=== PATIENT | male | born 1935 | race Hispanic/Latino ===

== ENCOUNTER 2017-01-19 09:00 | Emergency (ER) | payer MEDICAID, MEDICARE ==
[2017-01-19 09:01] VITALS: PULSE 79
[2017-01-19 09:05] VITALS: BMI 33.7
[2017-01-19 09:24] VITALS: TEMP 98.2
--- NOTE | 2017-01-19 09:32 | ED PDOC ---
Arrival/HPI - General Chief Complaint: Trauma Time Seen by Provider: 01/19/17 09:12 Historian: Patient - History of Present Illness Narrative History of Present Illness (Text): 01/19/17 09:18 Donald Chi is a 81 year old male, whose past medical history includes diabetes, COPD, GERD, A-fib on Coumadin, CHF and BPH, presents to the emergency department complaining of left side pain after a mechanical fall. Patient reports that while walking with his walker, he placed the breaks on it when he stopped, and suddenly the walker rolled on to the grass causing him to lose his stability and he fell on his left side. He states the pain begins on his left shoulder and radiates down to his elbow. The pain becomes worse when moving the arm. Patient denies chest pain, shortness of breath, dizziness, lightheadedness , or palpitation. Patient did not hit their head. Patient denies any loss of consciousness, headache, fever, chills, cough, nausea, vomiting, diarrhea, visual changes, neck pain, or other complaints. PMD: Dr. Faisal Brewer Time/Duration: Prior to Arrival Symptom Onset: Sudden Symptom Course: Unchanged Activities at Onset: Light Modifying Factors (Text): left pain is worse with arm movement Context: Walking, Street Associated Symptoms (Text): None Past Medical History - Provider Review Nursing Documentation Reviewed: Yes - Infectious Disease Hx of Infectious Diseases: None - Tetanus Immunization Tetanus Immunization: Unknown - Cardiac Hx Cardiac Disorders: Yes (Afib (on Coumadin)) Hx Congestive Heart Failure: Yes Hx Hypertension: Yes - Pulmonary Hx Chronic Obstructive Pulmonary Disease (COPD): Yes - Neurological Hx Neurological Disorder: No - HEENT Hx HEENT Disorder: Yes Hx Cataracts: Yes Hx Glaucoma: Yes - Renal Hx Renal Disorder: No - Endocrine/Metabolic Hx Diabetes Mellitus Type 1: Yes - Hematological/Oncological Hx Blood Disorders: No - Integumentary Hx Dermatological Disorder: No - Musculoskeletal/Rheumatological Hx Musculoskeletal Disorders: Yes Hx Falls: Yes Other/Comment: walks with walker - Gastrointestinal Hx Gastrointestinal Disorders: Yes Hx Gastroesophageal Reflux: Yes Hx Gastrointestinal Ulcer: Yes - Genitourinary/Gynecological Hx Reproductive Disorders: No - Psychiatric Hx Psychophysiologic Disorder: No Hx Substance Use: No - Past Surgical History Past Surgical History: No Previous - Surgical History Hx Joint Replacement: Yes (left total knee replacemnt 07/2016) - Anesthesia Hx Anesthesia: Yes Hx Anesthesia Reactions: No Hx Malignant Hyperthermia: No - Suicidal Assessment Feels Threatened In Home Enviroment: No Family/Social History - Physician Review Nursing Documentation Reviewed: Yes Family/Social History: Unknown Family HX Smoking Status: Former Smoker Hx Alcohol Use: No Hx Substance Use: No Hx Substance Use Treatment: No Allergies/Home Meds Allergies/Adverse Reactions: Allergies No Known Allergies Allergy (Verified 01/19/17 09:05) Home Medications: Home Meds Medication Instructions Recorded Confirmed Alfuzosin HCl [Uroxatral] 10 mg PO DAILY 09/05/16 01/19/17 Darifenacin Hydrobromide 15 mg PO DAILY 09/05/16 01/19/17 [Darifenacin ER] Dutasteride [Dutasteride] 0.5 mg PO DAILY 09/05/16 01/19/17 Insulin Lispro Mix 75/25 [HumaLOG 25 unit SC ACHS 09/05/16 01/19/17 Mix 75/25] Metoprolol Tartrate [Lopressor] 100 mg PO DAILY 09/05/16 01/19/17 Oxybutynin Chloride [Oxybutynin 15 mg PO DAILY 09/05/16 01/19/17 Chloride ER] Pantoprazole [Protonix EC Tab] 40 mg PO DAILY 09/05/16 01/19/17 Pregabalin [Lyrica] 75 mg PO DAILY 09/05/16 01/19/17 Warfarin [Coumadin] 5 mg PO DAILY 09/05/16 01/19/17 traMADol [Ultram] 50 mg pe PO DAILY 09/05/16 01/19/17 Review of Systems - Review of Systems Constitutional: absent: Fevers ENT: Normal Respiratory: absent: SOB Cardiovascular: absent: Chest Pain Gastrointestinal: absent: Abdominal Pain, Diarrhea, Nausea, Vomiting Musculoskeletal: Other (left shoulder pain radiates down to elbow) Skin: Normal Neurological: absent: Headache, Dizziness Endocrine: Normal Hemo/Lymphatic: Normal Psychiatric: Normal Physical Exam Vital Signs Reviewed: Yes Vital Signs Temp Pulse Resp BP Pulse Ox 01/19/17 11:00 88 18 114/67 98 01/19/17 09:13 98.2 F 91 H 19 115/59 L 97 Temperature: Afebrile Blood Pressure: Normal Pulse: Regular Respiratory Rate: Normal Appearance: Positive for: Well-Appearing, Non-Toxic, Comfortable Pain Distress: None Mental Status: Positive for: Alert and Oriented X 3 - Systems Exam Head: Present: Atraumatic, Normocephalic Pupils: Present: PERRL Extroacular Muscles: Present: EOMI Conjunctiva: Present: Normal Mouth: Present: Moist Mucous Membranes Neck: Present: Normal Range of Motion Respiratory/Chest: Present: Clear to Auscultation, Good Air Exchange. No: Respiratory Distress, Accessory Muscle Use Cardiovascular: Present: Regular Rate and Rhythm, Normal S1, S2. No: Murmurs Abdomen: Present: Normal Bowel Sounds. No: Tenderness, Distention, Peritoneal Signs Upper Extremity: Present: Tenderness (left anterior and lateral motion), Other ( limited range of motion on left arm). No: Cyanosis, Edema Lower Extremity: Present: Normal Inspection. No: Edema Neurological: Present: GCS=15, CN II-XII Intact, Speech Normal Skin: Present: Warm, Dry, Normal Color. No: Rashes Psychiatric: Present: Alert, Oriented x 3, Normal Insight, Normal Concentration Medical Decision Making ED Course and Treatment: 01/19/17 09:18 Impression: 81 year old male with left shoulder pain that radiates to elbow after mechanical fall. Differential Diagnosis included but are not limited to: Shoulder fx vs Contusion vs Strain Plan: -- Left shoulder X - ray -- Left elbow X - ray -- Tylenol -- Reassess and disposition Progress Notes: 01/19/2017 10:12 Elbow X - ray: Creator : Mia Lopez V. FINDINGS: BONES: No fracture. JOINTS: Ulna humeral mild osteoarthritis. SOFT TISSUES: Normal. JOINT EFFUSION: None. OTHER FINDINGS: None IMPRESSION: No fracture or dislocation appear. Ulna humeral mild osteoarthritis. 01/19/17 10:15 Shoulder X - ray: Creator : Mia Lopez V. FINDINGS: BONES: No fracture. JOINTS: Glenohumeral and acromioclavicular joints subcortical cystic arthrosis SOFT TISSUES: Normal. OTHER FINDINGS: None. IMPRESSION: No fracture or dislocation. Arthrosis. Patient's xray negative. Patient states he feels better and has strength to walk with his walker. He does not want PT as offered and states he can get around himself or with assistance at home. He said he recently had blood work done with his doctor and they told him everything was fine. He will f/u with his PMD and he also has an appointment with Dr. Brewer in 1-2days. - RAD Interpretation Radiology Orders: 01/19/17 09:22 ELBOW LEFT 3 VIEWS ROUTINE [RAD] Stat SHOULDER LEFT [RAD] Stat - Medication Orders Current Medication Orders: Discontinued Medications Acetaminophen (Tylenol 325mg Tab) 975 mg PO STAT STA Stop: 01/19/17 09:23 Last Admin: 01/19/17 10:07 Dose: 975 mg - Scribe Statement The provider has reviewed the documentation as recorded by the Scribe 01/19/2017 Carlee Byrne Provider Scribe Attestation: All medical record entries made by the Scribe were at my direction and personally dictated by me. I have reviewed the chart and agree that the record accurately reflects my personal performance of the history, physical exam, medical decision making, and the department course for this patient. I have also personally directed, reviewed, and agree with the discharge instructions and disposition. Disposition/Present on Arrival - Present on Arrival Any Indicators Present on Arrival: No History of DVT/PE: No History of Uncontrolled Diabetes: No Urinary Catheter: No History of Decub. Ulcer: No History Surgical Site Infection Following: None - Disposition Have Diagnosis and Disposition been Completed?: Yes Diagnosis: Shoulder contusion Disposition: HOME/ ROUTINE Disposition Time: 11:01 Patient Plan: Discharge Condition: IMPROVED Discharge Instructions (ExitCare): Rotator Cuff Injury (ED) Additional Instructions: Mr Chi, thank you for letting us take care of you today. Your provider was Dr. Vogel. You were treated for Shoulder Contusion. The emergency medical care you received today was directed at your acute symptoms. If you were prescribed any medication, please fill it and take as directed. It may take several days for your symptoms to resolve. Return to the Emergency Department if your symptoms worsen, do not improve, or if you have any other problems. Please contact your doctor or call one of the physicians/clinics you have been referred to that are listed on the Patient Visit Information form that is included in your discharge packet. Bring any paperwork you were given at discharge with you along with any medications you are taking to your follow up visit. Our treatment cannot replace ongoing medical care by a primary care provider (PCP) outside of the emergency department. Thank you for allowing the [facility] team to be part of your care today. If you had an X-Ray or CT scan: A Radiologist will review the ED reading if any change in treatment is needed we will contact you. If you had a blood, urine, or wound culture: It will take several days for the results, if any change in treatment is needed we will contact you. If you had an STI test: It will take 48 hours for the results. Please call after 1 week if you have not heard back. Referrals: Kit Mahmood MD [Staff Provider] - Follow up with primary Faisal Brewer MD [Primary Care Provider] - Follow up with primary Forms: [employer] (B[place]raini)
--- NOTE | 2017-01-19 10:09 | RAD ---
PROCEDURE: Radiographs of the left elbow. HISTORY: fall r/o fx COMPARISON: No prior. FINDINGS: BONES: No fracture. JOINTS: Ulna humeral mild osteoarthritis. SOFT TISSUES: Normal. JOINT EFFUSION: None. OTHER FINDINGS: None IMPRESSION: No fracture or dislocation appear Ulna humeral mild osteoarthritis.
--- NOTE | 2017-01-19 10:10 | RAD ---
PROCEDURE: Radiographs of the Left Shoulder HISTORY: fall r/o fx COMPARISON: No prior. FINDINGS: BONES: No fracture. JOINTS: Glenohumeral and acromioclavicular joints subcortical cystic arthrosis SOFT TISSUES: Normal. OTHER FINDINGS: None. IMPRESSION: No fracture or dislocation. Arthrosis
[2017-01-19 11:01] VITALS: BP 114/67; PULSE 88; RESP 18; O2SAT 98
== END 2017-01-19 11:03 | disposition home or self-care (01) ==
LOC: ED 09:00
DX: S40.012A Contusion of left shoulder, initial encounter (principal); W01.0XXA Fall on same level from slipping, tripping and stumbling without subsequent striking against object, initial encounter; Y93.01 Activity, walking, marching and hiking; Y92.89 Other specified places as the place of occurrence of the external cause

== ENCOUNTER 2017-03-30 07:56 | Emergency (ER) | payer OTHER, MEDICAID ==
[2017-03-30 07:56] VITALS: PULSE 79; BMI 33.7
[2017-03-30 08:07] VITALS: TEMP 98.7
--- NOTE | 2017-03-30 08:50 | ED PDOC ---
Arrival/HPI - General Historian: Patient <Melina Suggs - Last Filed: 03/30/17 11:14> <JaspreetSteve L - Last Filed: 04/01/17 07:25> - General Chief Complaint: Dizziness/Lightheaded Time Seen by Provider: 03/30/17 08:24 - History of Present Illness Narrative History of Present Illness (Text): 82 year old male with a history of Atrial fibrillation (on Coumadin), DM II, Hypertension, and CKD who presents with dizziness, weakness, and light- headedness upon waking up this morning. He denies any unilateral weakness, numbness, changes in speech, visual disturbances, or headache. He admits to polyuria, denies dysuria and suprapubic fullness. Patient reports recently uncontrolled blood sugar levels and and recent R[place] catheter removal. 03/30/17 08:38 03/30/17 08:51 (Melina Suggs) Past Medical History - Provider Review Nursing Documentation Reviewed: Yes - Infectious Disease Hx of Infectious Diseases: None - Tetanus Immunization Tetanus Immunization: Unknown - Cardiac Hx Cardiac Disorders: Yes (Afib (on Coumadin)) Hx Congestive Heart Failure: Yes Hx Hypertension: Yes - Pulmonary Hx Chronic Obstructive Pulmonary Disease (COPD): Yes - Neurological Hx Neurological Disorder: No - HEENT Hx HEENT Disorder: Yes Hx Cataracts: Yes Hx Glaucoma: Yes - Renal Hx Renal Disorder: No - Endocrine/Metabolic Hx Diabetes Mellitus Type 1: Yes - Hematological/Oncological Hx Blood Disorders: No - Integumentary Hx Dermatological Disorder: No - Musculoskeletal/Rheumatological Hx Musculoskeletal Disorders: Yes Hx Falls: Yes Other/Comment: walks with walker - Gastrointestinal Hx Gastrointestinal Disorders: Yes Hx Gastroesophageal Reflux: Yes Hx Gastrointestinal Ulcer: Yes - Genitourinary/Gynecological Other/Comment: prostate sx - Psychiatric Hx Psychophysiologic Disorder: No Hx Substance Use: No - Past Surgical History Past Surgical History: No Previous - Surgical History Hx Joint Replacement: Yes (left total knee replacemnt 07/2016) Other/Comment: prostate sx - Anesthesia Hx Anesthesia: Yes Hx Anesthesia Reactions: No Hx Malignant Hyperthermia: No - Suicidal Assessment Feels Threatened In Home Enviroment: No <Melina Suggs - Last Filed: 03/30/17 11:14> Family/Social History Family/Social History: No Known Family HX Smoking Status: Former Smoker Hx Alcohol Use: No Hx Substance Use: No Hx Substance Use Treatment: No <Melina Suggs - Last Filed: 03/30/17 11:14> - Physician Review Nursing Documentation Reviewed: Yes <Santosh Vogelo Raffy - Last Filed: 04/01/17 07:25> Allergies/Home Meds <Melina Suggs - Last Filed: 03/30/17 11:14> <LeeanndavidSteve L - Last Filed: 04/01/17 07:25> Allergies/Adverse Reactions: Allergies No Known Allergies Allergy (Verified 01/19/17 09:05) Home Medications: Home Meds Medication Instructions Recorded Confirmed Alfuzosin HCl [Uroxatral] 10 mg PO DAILY 09/05/16 01/19/17 Darifenacin Hydrobromide 15 mg PO DAILY 09/05/16 03/30/17 [Darifenacin ER] Dutasteride [Dutasteride] 0.5 mg PO DAILY 09/05/16 01/19/17 Insulin Lispro Mix 75/25 [HumaLOG 25 unit SC ACHS 09/05/16 01/19/17 Mix 75/25] Oxybutynin Chloride [Oxybutynin 15 mg PO DAILY 09/05/16 01/19/17 Chloride ER] Pantoprazole [Protonix EC Tab] 40 mg PO DAILY 09/05/16 01/19/17 Pregabalin [Lyrica] 75 mg PO DAILY 09/05/16 01/19/17 Warfarin [Coumadin] 5 mg PO DAILY 09/05/16 01/19/17 Metoprolol Tartrate [Lopressor] 50 mg PO DAILY 03/30/17 03/30/17 Repaglinide [Prandin] 0.5 mg PO DAILY 03/30/17 03/30/17 Review of Systems - Review of Systems Constitutional: absent: Weight Change, Fevers Eyes: absent: Vision Changes, Photophobia ENT: absent: Hearing Changes, Tinnitus Respiratory: absent: SOB, Cough, Sputum Cardiovascular: absent: Chest Pain, Palpitations, Edema Gastrointestinal: absent: Abdominal Pain, Vomiting Genitourinary Male: Frequency Musculoskeletal: absent: Back Pain, Joint Swelling Skin: absent: Rash, Skin Lesions Neurological: Dizziness. absent: Headache, Focal Weakness, Speech Changes Endocrine: Polyuria. absent: Diaphoresis Hemo/Lymphatic: absent: Easy Bleeding, Easy Bruising Psychiatric: absent: Anxiety, Depression <Melina Suggs - Last Filed: 03/30/17 11:14> Physical Exam Vital Signs Reviewed: Yes Temperature: Afebrile Blood Pressure: Normal Pulse: Regular Respiratory Rate: Normal Appearance: Positive for: Non-Toxic Pain Distress: None Mental Status: Positive for: Alert and Oriented X 3 Finger Stick Blood Glucose: 327 - Systems Exam Head: Present: Atraumatic, Normocephalic Pupils: Present: PERRL Extroacular Muscles: Present: EOMI Conjunctiva: Present: Normal Mouth: Present: Moist Mucous Membranes, Normal Tounge Respiratory/Chest: Present: Clear to Auscultation, Good Air Exchange. No: Accessory Muscle Use Cardiovascular: Present: Irregular Rhythm, Peripheal Pulses Present Abdomen: Present: Normal Bowel Sounds. No: Tenderness, Distention Upper Extremity: Present: Normal Inspection. No: Edema Lower Extremity: Present: Normal Inspection. No: Edema Neurological: Present: CN II-XII Intact, Speech Normal, Normal Sensory Function , Other (UE and LE strength graded 5/5 bilaterally, sensation intact and equal bilaterally, instrument designer strength symmetrical, finger to nose within normal limits, gait at baseline) Skin: Present: Warm, Dry, Normal Color Psychiatric: Present: Alert, Oriented x 3, Normal Insight <Ifeanyi,Melina - Last Filed: 03/30/17 11:14> <Steve Vogel - Last Filed: 04/01/17 07:25> Vital Signs Temp Pulse Resp BP Pulse Ox 03/30/17 10:59 78 16 113/87 98 03/30/17 10:00 80 18 116/69 96 03/30/17 08:06 98.7 F 86 18 120/72 98 Medical Decision Making <Ifeanyi,Priteshmatthew - Last Filed: 03/30/17 11:14> - Lab Interpretations I have reviewed the lab results: Yes - EKG Interpretation Interpreted by ED Physician: Yes Type: 12 lead EKG <Steve Vogel - Last Filed: 04/01/17 07:25> ED Course and Treatment: 82 year old male with a past medical history of Atrial fibrillation (on Coumadin ), DM II, hypertension, CKD who presents with dizziness, weakness, and lightheadedness. - Diagnostic tests, including, but not limited to: Blood glucose of 330, Cr. 1.5, BUN 40, UA with trace blood. Portable Chest X-ray IMPRESSION: No dense consolidation . Patchy right basal infiltrate possible (versus summation of soft tissues) Cardiomegaly. Top-normal pulmonary vasculature. 03/30/17 10:17 Seated and standing blood pressures showed no orthostatic hypotension. Upon standing, patient was asymptomatic, without complaints of light-headedness or weakness. Patient feels comfortable going home. Discussed the X-ray findings, patient was agreeable to taking the antibiotic. 03/30/17 10:30 Dr. Bhatt, urologist, came to see the patient in the ED. Dr. Bhatt does not feel the patient's increased frequency is related to a urologic issue at this time. (Melina Suggs) In agreement with resident note, which includes further HPI details. Patient was seen and evaluated with resident, came up with plan and treatment together. (Steve Vogel) - Lab Interpretations Microbiology Results: Microbiology Results 03/30/17 09:23 Blood Blood Culture - Preliminary NO GROWTH AFTER 24 HOURS 03/30/17 09:38 Urine Urine Culture - Final No Growth (<1,000 CFU/ML) 03/30/17 08:50 Blood Blood Culture - Preliminary NO GROWTH AFTER 24 HOURS Lab Results: 03/30/17 08:50 03/30/17 08:50 Lab Results 03/30/17 10:18: POC Glucose (mg/dL) 330 H 03/30/17 09:38: Urine Color Yellow, Urine Appearance Clear, Urine pH 6.0, Ur Specific Powell 1.010, Urine Protein Negative, Urine Glucose (UA) >=1000, Urine Ketones Negative, Urine Blood Trace-intact H, Urine Nitrate Negative, Urine Bilirubin Negative, Urine Urobilinogen 0.2, Ur Leukocyte Esterase Negative , Urine RBC Negative, Urine WBC Negative 03/30/17 08:50: Sodium 137, Chloride 102, Potassium 4.8, Carbon Dioxide 25, Anion Gap 15, BUN 40 H, Creatinine 1.5 H, Est GFR ( Amer) 54, Est GFR ( Non-Af Amer) 45, Random Glucose 330 H* D, Calcium 9.2, Phosphorus 3.4, Magnesium 1.8, Total Bilirubin 0.6, AST 41, ALT 25, Alkaline Phosphatase 118, Total Protein 6.7, Albumin 3.8, Globulin 2.9, Albumin/Globulin Ratio 1.3 03/30/17 08:50: pO2 53, VBG pH 7.33, VBG pCO2 48.0, VBG HCO3 25.3, VBG Total CO2 26.8, VBG O2 Sat (Calc) 89.7 H, VBG Base Excess -1.1 L, VBG Potassium 4.6, Sodium 133.0, Chloride 103.0, Glucose 352 H, Lactate 1.9, FiO2 21.0, Venous Blood Potassium 4.6 03/30/17 08:50: PT 24.2 H, INR 2.24 H, APTT 39.0 H 03/30/17 08:50: WBC 7.6, RBC 4.26, Hgb 12.6 L, Hct 36.5 L, MCV 85.7, MCH 29.6, MCHC 34.5, RDW 15.7 H, Plt Count 629 H, MPV 8.7, Gran % 72.1 H, Lymph % (Auto) 17.9 L, Hudspeth % (Auto) 7.0 H, Eos % (Auto) 2.2, Baso % (Auto) 0.8, Gran # 5.49, Lymph # 1.4, Hudspeth # 0.5, Eos # 0.2, Baso # 0.06 - RAD Interpretation Radiology Orders: 03/30/17 08:34 CHEST PORTABLE [RAD] Stat - Medication Orders Current Medication Orders: Discontinued Medications Azithromycin (Zithromax) 500 mg PO STAT STA PRN Reason: Protocol Stop: 03/30/17 10:26 Last Admin: 03/30/17 10:32 Dose: 500 mg Sodium Chloride (Sodium Chloride 0.9%) 500 mls @ 999 mls/hr IV .Q31M STA Stop: 03/30/17 09:53 Last Admin: 03/30/17 09:29 Dose: 999 mls/hr eMAR Start Stop Document 03/30/17 09:29 AD (Rec: 03/30/17 09:29 AD [facility] [id number]) Intravenous Solution Start Date 03/30/17 Start Time 09:29 <Melina Suggs - Last Filed: 03/30/17 11:14> - PA / HEALTHCARE CONSULTANT / Resident Statement MD/DO has reviewed & agrees with the documentation as recorded. MD/DO has examined the patient and agrees with the treatment plan. - Scribe Statement The provider has reviewed the documentation as recorded by the Scribe <Steve Vogel - Last Filed: 04/01/17 07:25> - Scribe Statement Carlee Escobardua Provider Scribe Attestation: All medical record entries made by the Scribe were at my direction and personally dictated by me. I have reviewed the chart and agree that the record accurately reflects my personal performance of the history, physical exam, medical decision making, and the department course for this patient. I have also personally directed, reviewed, and agree with the discharge instructions and disposition. (Steve Vogel) Disposition/Present on Arrival - Present on Arrival Any Indicators Present on Arrival: No History of DVT/PE: No History of Uncontrolled Diabetes: Yes Urinary Catheter: Yes History of Decub. Ulcer: No History Surgical Site Infection Following: None - Disposition Have Diagnosis and Disposition been Completed?: Yes Disposition Time: 10:55 <Melina Suggs - Last Filed: 03/30/17 11:14> - Disposition Patient Plan: Discharge <Steve Vogel - Last Filed: 04/01/17 07:25> - Disposition Diagnosis: Dizziness, Hyperglycemia Disposition: HOME/ ROUTINE Condition: IMPROVED Discharge Instructions (ExitCare): Dizziness (ED) Additional Instructions: Mr Chi, thank you for letting us take care of you today. Your provider was Dr. Vogle. You were treated for Dizziness. The emergency medical care you received today was directed at your acute symptoms. If you were prescribed any medication, please fill it and take as directed. It may take several days for your symptoms to resolve. Return to the Emergency Department if your symptoms worsen, do not improve, or if you have any other problems. Please contact your doctor or call one of the physicians/clinics you have been referred to that are listed on the Patient Visit Information form that is included in your discharge packet. Bring any paperwork you were given at discharge with you along with any medications you are taking to your follow up visit. Our treatment cannot replace ongoing medical care by a primary care provider (PCP) outside of the emergency department. Thank you for allowing the [facility] team to be part of your care today. If you had an X-Ray or CT scan: A Radiologist will review the ED reading if any change in treatment is needed we will contact you. If you had a blood, urine, or wound culture: It will take several days for the results, if any change in treatment is needed we will contact you. If you had an STI test: It will take 48 hours for the results. Please call after 1 week if you have not heard back. Prescriptions: Azithromycin 250 mg PO DAILY #4 tab Referrals: Kit Mahmood MD [Primary Care Provider] - Follow up with primary Forms: [employer] (Bhutanese)
--- NOTE | 2017-03-30 09:01 | RAD ---
HISTORY: Sepsis Patient COMPARISON: 09/05/2016 FINDINGS: LUNGS: No active pulmonary disease. No dense consolidation. Vague patchy right basal infiltrate-possible PLEURA: No significant pleural effusion identified, no pneumothorax apparent. CARDIOVASCULAR: Cardiomegaly-similar. Pulmonary vasculature top-normal OSSEOUS STRUCTURES: Thoracic spondylosis VISUALIZED UPPER ABDOMEN: Normal. OTHER FINDINGS: None. IMPRESSION: No dense consolidation . Patchy right basal infiltrate possible (versus summation of soft tissues) Cardiomegaly. Top-normal pulmonary vasculature.
[2017-03-30 09:02] LABS: VENOUS BLOOD GAS BASE EXCESS -1.1 mmol/L (0.0-2.0); VENOUS BLOOD PH 7.33 (7.32-7.43)
[2017-03-30 09:05] LABS: BASO # 0.06 K/mm3 (0.0-2.0); BASO % 0.8 % (0.0-3.0); EOS # 0.2 (0.0-0.7); EOS % 2.2 % (1.5-5.0); GRAN # 5.49 (1.4-6.5); GRAN % 72.1 % (50.0-68.0); HEMATOCRIT 36.5 % (42.0-52.0); LYMPH # 1.4 (1.2-3.4); LYMPH % 17.9 % (22.0-35.0); MEAN CELL VOLUME 85.7 fl (80.0-105.0); MEAN CORPUSCULAR HEMOGLOBIN 29.6 pg (25.0-35.0); MEAN CORPUSCULAR HGB CONC 34.5 g/dl (31.0-37.0); MEAN PLATELET VOLUME 8.7 fl (7.0-11.0); MONO # 0.5 (0.1-0.6); RED CELL DISTRIBUTION WIDTH 15.7 % (11.5-14.5); WHITE BLOOD COUNT 7.6 10^3/ul (4.5-11.0)
[2017-03-30 09:14] LABS: ALB/GLOB RATIO 1.3 (1.1-1.8); BILIRUBIN,TOTAL 0.6 mg/dL (0.2-1.3); CALCIUM 9.2 mg/dL (8.4-10.5); INR 2.24 (0.93-1.08); MAGNESIUM 1.8 mg/dL (1.7-2.2); PHOSPHOROUS 3.4 mg/dL (2.5-4.5); POTASSIUM 4.8 mmol/L (3.6-5.0); TOTAL PROTEIN 6.7 g/dL (5.8-8.3)
[2017-03-30] MEDS ORDERED: Sodium Chloride 0.9% 500 ML IV STA (09:23)
[2017-03-30 09:49] LABS: URINE BILIRUBIN NEGATIVE (NEGATIVE); URINE BLOOD TRACE-INTACT (NEGATIVE); URINE GLUCOSE (UA) >=1000 mg/dL (NEGATIVE); URINE KETONE NEGATIVE (NEGATIVE); URINE LEUKOCYTE ESTERASE NEGATIVE Leu/uL (NEGATIVE); URINE PROTEIN NEGATIVE mg/dL (<30 mg/dL); URINE UROBILINOGEN 0.2 E.U./dL (<1 E.U./dL)
[2017-03-30 09:51] LABS: URINE APPEARANCE CLEAR (CLEAR); URINE COLOR YELLOW (YELLOW)
[2017-03-30 10:04] LABS: URINE RBC NEGATIVE /hpf (0-2); URINE WBC NEGATIVE /hpf (0-6)
[2017-03-30 10:59] VITALS: BP 113/87; PULSE 78; RESP 16; O2SAT 98
--- NOTE | 2017-03-30 11:35 | CARD ---
APPROVED REPORT EKG Measurement Heart [id number] <Conclusion> Atrial fibrillation Incomplete right bundle branch block Abnormal ECG
== END 2017-03-30 11:00 | disposition home or self-care (01) ==
LOC: ED 07:56
DX: E11.65 Type 2 diabetes mellitus with hyperglycemia (principal); R42 Dizziness and giddiness; I10 Essential (primary) hypertension; I48.91 Unspecified atrial fibrillation; Z79.01 Long term (current) use of anticoagulants; Z87.891 Personal history of nicotine dependence
CPT/HCPCS: 71010; 80053; 81001; 82803; 82948; 83735; 84100; 85025; 85610; 85730; 87040; 87086; 93005; 99285; J7040

== ENCOUNTER 2017-07-20 11:22 | Emergency (ER) | payer OTHER, MEDICAID ==
[2017-07-20 11:22] VITALS: PULSE 79; BMI 33.7
[2017-07-20 11:43] VITALS: BP 123/55; TEMP 97.7
--- NOTE | 2017-07-20 12:03 | ED PDOC ---
Arrival/HPI - General Chief Complaint: High Blood Sugar Time Seen by Provider: 07/20/17 11:36 Historian: Patient - History of Present Illness Narrative History of Present Illness (Text): 07/20/17 11:52 A 82 year old male, whose past medical history includes atrial fibrillation (on Coumadin), diabetes type 2, hypertension, and CHF, presents to the emergency department complaining of hyperglycemia. Patient reports measuring blood sugar at 418. Notes every morning takes medication. He states also experiencing dizziness. Experiences back pain and shoulder pain at baseline. Patient denies any fever, cough, abdomial pain, diarrhea, appetite changes, or any other complaints. PMD: Dr. Mahmood Past Medical History - Provider Review Nursing Documentation Reviewed: Yes - Infectious Disease Hx of Infectious Diseases: None - Tetanus Immunization Tetanus Immunization: Unknown - Cardiac Hx Cardiac Disorders: Yes (Afib (on Coumadin)) Hx Congestive Heart Failure: Yes Hx Hypertension: Yes - Pulmonary Hx Chronic Obstructive Pulmonary Disease (COPD): Yes - Neurological Hx Neurological Disorder: No - HEENT Hx HEENT Disorder: Yes Hx Cataracts: Yes Hx Glaucoma: Yes - Renal Hx Renal Disorder: No - Endocrine/Metabolic Hx Diabetes Mellitus Type 1: Yes - Hematological/Oncological Hx Blood Disorders: No - Integumentary Hx Dermatological Disorder: No - Musculoskeletal/Rheumatological Hx Musculoskeletal Disorders: Yes Hx Falls: Yes Other/Comment: walks with walker - Gastrointestinal Hx Gastrointestinal Disorders: Yes Hx Gastroesophageal Reflux: Yes Hx Gastrointestinal Ulcer: Yes - Genitourinary/Gynecological Other/Comment: prostate sx - Psychiatric Hx Psychophysiologic Disorder: No Hx Substance Use: No - Past Surgical History Past Surgical History: No Previous - Surgical History Hx Joint Replacement: Yes (left total knee replacemnt 07/2016) Other/Comment: prostate sx - Anesthesia Hx Anesthesia: Yes Hx Anesthesia Reactions: No Hx Malignant Hyperthermia: No - Suicidal Assessment Feels Threatened In Home Enviroment: No Family/Social History - Physician Review Nursing Documentation Reviewed: Yes Family/Social History: No Known Family HX Smoking Status: Former Smoker Hx Alcohol Use: No Hx Substance Use: No Hx Substance Use Treatment: No Allergies/Home Meds Allergies/Adverse Reactions: Allergies No Known Allergies Allergy (Verified 07/20/17 11:43) Home Medications: Home Meds Medication Instructions Recorded Confirmed Alfuzosin HCl [Uroxatral] 10 mg PO DAILY 09/05/16 07/20/17 Dutasteride [Dutasteride] 0.5 mg PO DAILY 09/05/16 07/20/17 Insulin Lispro Mix 75/25 [HumaLOG 25 unit SC ACHS 09/05/16 07/20/17 Mix 75/25] Oxybutynin Chloride [Oxybutynin 5 mg PO Q8 09/05/16 07/20/17 Chloride ER] Pantoprazole [Protonix EC Tab] 40 mg PO DAILY 09/05/16 07/20/17 Pregabalin [Lyrica] 75 mg PO DAILY 09/05/16 07/20/17 Warfarin [Coumadin] 5 mg PO DAILY 09/05/16 07/20/17 Metoprolol Tartrate [Lopressor] 50 mg PO BID 03/30/17 07/20/17 Digoxin [Lanoxin] 250 mcg PO DAILY 07/20/17 07/20/17 Doxazosin Mesylate [Cardura Xl] 2 mg PO DAILY 07/20/17 07/20/17 Furosemide [Lasix] 40 mg PO DAILY 07/20/17 07/20/17 Nateglinide [Starlix] 60 mg PO TID 07/20/17 07/20/17 Paricalcitol [Zemplar] 1 mcg PO DAILY 07/20/17 07/20/17 Tamsulosin HCl [Flomax] 0.4 mg PO DAILY 07/20/17 07/20/17 Tramadol HCl [Ultram] 50 mg PO BID 07/20/17 07/20/17 Review of Systems - Physician Review All systems were reviewed & negative as marked: Yes - Review of Systems Constitutional: absent: Fevers Respiratory: absent: Cough Gastrointestinal: absent: Abdominal Pain, Diarrhea, Appetite Changes Neurological: Dizziness Physical Exam Vital Signs Reviewed: Yes Vital Signs Temp Pulse Resp BP Pulse Ox 07/20/17 14:07 75 16 95 07/20/17 11:43 97.7 F 76 18 123/55 L 97 Temperature: Afebrile Blood Pressure: Normal Pulse: Regular Respiratory Rate: Normal Appearance: Positive for: Well-Appearing Pain Distress: None Mental Status: Positive for: Alert and Oriented X 3 - Systems Exam Head: Present: Atraumatic, Normocephalic Pupils: Present: PERRL Extroacular Muscles: Present: EOMI Conjunctiva: Present: Normal Mouth: Present: Moist Mucous Membranes Neck: Present: Normal Range of Motion Respiratory/Chest: Present: Clear to Auscultation, Good Air Exchange. No: Respiratory Distress, Accessory Muscle Use Cardiovascular: Present: Regular Rate and Rhythm, Normal S1, S2. No: Murmurs Abdomen: Present: Normal Bowel Sounds. No: Tenderness, Distention, Peritoneal Signs Back: Present: Normal Inspection Upper Extremity: Present: Normal Inspection. No: Cyanosis, Edema Lower Extremity: Present: Normal Inspection. No: Edema Neurological: Present: GCS=15, CN II-XII Intact, Speech Normal Skin: Present: Warm, Dry, Normal Color. No: Rashes Psychiatric: Present: Alert, Oriented x 3, Normal Insight, Normal Concentration Medical Decision Making ED Course and Treatment: 07/20/17 11:56 Impression: 82 year old male with hyperglycemia and dizziness. No acute findings on physical exam. Differential Diagnosis included but are not limited to: Hypoglycemia DKA vs. Infection Plan: -- EKG -- Chest X-ray -- Labs -- Blood Culture -- Urine Culture -- Urinalysis -- Venous Blood Gas -- Reassess and disposition Prior Visits: Notes and results from previous visits were reviewed. Patient was last seen in the emergency department on 03/30/2017 for dizziness, weakness, and lightheadedness. Patient was discharged home. Progress Notes: EKG: Ordered, reviewed, and independently interpreted the EKG. Rate : 79 BPM Rhythm : Atrial Fibrillation Interpretation : Incubatec right bundle. Comparison : No previous EKG for comparison. 07/20/2017 12:17 Chest X-ray IMPRESSION: No active disease. No significant interval change compared to the prior examination(s). Dictator: Paco Monroe MD 07/20/2017 14:56 Xray negative. UA negative for UTI. Patient treated with Insulin and glucose improved. Also, patient's INR is elevated. He was advised to stop the coumadin for 2 days follow up an INR with his doctor. He denies any bleeding. Patient has improved and currently has no symptoms. He will make sure to follow up with his primary doctor Dr. Mahmood. He was advised to return to the ED with any concerns. - Lab Interpretations Microbiology Results: Microbiology Results 07/20/17 12:30 Blood Blood Culture - Final NO GROWTH AFTER 5 DAYS 07/20/17 12:30 Blood Gram Stain - Final TEST NOT PERFORMED 07/20/17 12:00 Blood Blood Culture - Final NO GROWTH AFTER 5 DAYS 07/20/17 12:00 Blood Gram Stain - Final TEST NOT PERFORMED 07/20/17 12:20 Urine Urine Culture - Final No Growth (<1,000 CFU/ML) Lab Results: 07/20/17 12:30 07/20/17 12:30 Lab Results 07/20/17 12:30: Sodium 131 L, Chloride 95 L, Potassium 4.8, Carbon Dioxide 25, Anion Gap 16, BUN 36 H, Creatinine 1.9 H, Est GFR ( Amer) 41, Est GFR ( Non-Af Amer) 34, Random Glucose 310 H*, Calcium 9.5, Phosphorus 3.7, Magnesium 2.0, Total Bilirubin 0.7, AST 38, ALT 38, Alkaline Phosphatase 119, Total Protein 7.4, Albumin 4.2, Globulin 3.2, Albumin/Globulin Ratio 1.3 07/20/17 12:30: pO2 28 L, VBG pH 7.27 L, VBG pCO2 61.0 H, VBG HCO3 28.0, VBG Total CO2 29.9 H, VBG O2 Sat (Calc) 54.1, VBG Base Excess -0.3 L, VBG Potassium 4.7, Sodium 130.0 L, Chloride 97.0 L, Glucose 320 H, Lactate 1.4, FiO2 21.0, Venous Blood Potassium 4.7 07/20/17 12:30: PT 47.7 H, INR 4.03 H*, APTT 50.8 H 07/20/17 12:30: WBC 8.3, RBC 4.22, Hgb 12.2 L, Hct 36.1 L, MCV 85.5, MCH 28.9, MCHC 33.8, RDW 16.3 H, Plt Count 505 H, MPV 8.5, Gran % 72.0 H, Lymph % (Auto) 18.2 L, [place] % (Auto) 8.2 H, Eos % (Auto) 0.8 L, Baso % (Auto) 0.8, Gran # 5.96 , Lymph # 1.5, [place] # 0.7 H, Eos # 0.1, Baso # 0.07 07/20/17 12:20: Urine Color Yellow, Urine Appearance Clear, Urine pH 6.0, Ur Specific [place] 1.015, Urine Protein Trace H, Urine Glucose (UA) >=1000, Urine Ketones Negative, Urine Blood Trace-intact H, Urine Nitrate Negative, Urine Bilirubin Negative, Urine Urobilinogen 0.2, Ur Leukocyte Esterase Negative, Urine RBC Negative, Urine WBC 0 - 2, Ur Epithelial Cells 1 - 3, Urine Bacteria Trace 07/20/17 11:33: POC Glucose (mg/dL) 293 H I have reviewed the lab results: Yes - RAD Interpretation Radiology Orders: 07/20/17 11:56 CHEST PORTABLE [RAD] Stat - Medication Orders Current Medication Orders: Discontinued Medications Insulin Human Regular (Humulin R) 4 units IV STAT STA Stop: 07/20/17 12:56 Last Admin: 07/20/17 13:06 Dose: 4 units eMAR Start Stop Document 07/20/17 13:06 HI (Rec: 07/20/17 13:06 [email or web address]) Intravenous Solution Start Date 07/20/17 Start Time 13:06 MAR Blood Glucose Document 07/20/17 13:06 HI (Rec: 07/20/17 13:06 [email or web address]) Blood Glucose Finger Stick Blood Glucose (70-120) 293 - Scribe Statement The provider has reviewed the documentation as recorded by the Kathy Hurst Provider Scribe Attestation: All medical record entries made by the Scribe were at my direction and personally dictated by me. I have reviewed the chart and agree that the record accurately reflects my personal performance of the history, physical exam, medical decision making, and the department course for this patient. I have also personally directed, reviewed, and agree with the discharge instructions and disposition. Disposition/Present on Arrival - Present on Arrival Any Indicators Present on Arrival: Yes History of DVT/PE: No History of Uncontrolled Diabetes: Yes Urinary Catheter: Yes History of Decub. Ulcer: No History Surgical Site Infection Following: None - Disposition Have Diagnosis and Disposition been Completed?: Yes Diagnosis: Hyperglycemia, Renal failure, Elevated INR Disposition: HOME/ ROUTINE Disposition Time: 14:56 Patient Plan: Discharge Condition: IMPROVED Discharge Instructions (ExitCare): Elevated INR (ED), Diabetic Hyperglycemia ( ED) Additional Instructions: Ericanathensanto, thank you for letting us take care of you today. Your provider was Dr. Vogel. You were treated for Hyperglycemia, Elevated INR. The emergency medical care you received today was directed at your acute symptoms. If you were prescribed any medication, please fill it and take as directed. It may take several days for your symptoms to resolve. Return to the Emergency Department if your symptoms worsen, do not improve, or if you have any other problems. PLEASE HOLD YOUR COUMADIN FOR 2 DAYS AND THEN CONTINUE RECOMMENDED BY YOUR DOCTOR. Make sure to follow up with your doctor in 1-2 days. Please contact your doctor or call one of the physicians/clinics you have been referred to that are listed on the Patient Visit Information form that is included in your discharge packet. Bring any paperwork you were given at discharge with you along with any medications you are taking to your follow up visit. Our treatment cannot replace ongoing medical care by a primary care provider (PCP) outside of the emergency department. Thank you for allowing the [facility] team to be part of your care today. If you had an X-Ray or CT scan: A Radiologist will review the ED reading if any change in treatment is needed we will contact you. If you had a blood, urine, or wound culture: It will take several days for the results, if any change in treatment is needed we will contact you. If you had an STI test: It will take 48 hours for the results. Please call after 1 week if you have not heard back. Referrals: Kit Mahmood MD [Primary Care Provider] - Follow up with primary Forms: [facility] (Kiswahili)
--- NOTE | 2017-07-20 12:19 | RAD ---
HISTORY: Sepsis Patient COMPARISON: 03/30/2017 FINDINGS: LUNGS: No active pulmonary disease. PLEURA: No significant pleural effusion identified, no pneumothorax apparent. CARDIOVASCULAR: Cardiomegaly. No evidence of acute, significant cardiovascular disease. OSSEOUS STRUCTURES: No significant abnormalities. VISUALIZED UPPER ABDOMEN: Normal. OTHER FINDINGS: None. IMPRESSION: No active disease. No significant interval change compared to the prior examination(s).
[2017-07-20 12:33] LABS: URINE BILIRUBIN NEGATIVE (NEGATIVE); URINE BLOOD TRACE-INTACT (NEGATIVE); URINE GLUCOSE (UA) >=1000 mg/dL (NEGATIVE); URINE LEUKOCYTE ESTERASE NEGATIVE Leu/uL (NEGATIVE); URINE NITRATE NEGATIVE (NEGATIVE); URINE PROTEIN TRACE mg/dL (<30 mg/dL); URINE UROBILINOGEN 0.2 E.U./dL (<1 E.U./dL)
[2017-07-20 12:34] LABS: URINE APPEARANCE CLEAR (CLEAR); URINE COLOR YELLOW (YELLOW)
[2017-07-20 12:44] LABS: VENOUS BLOOD GAS BASE EXCESS -0.3 mmol/L (0.0-2.0); VENOUS BLOOD GAS PO2 28 mm/Hg (30-55); VENOUS BLOOD PH 7.27 (7.32-7.43)
[2017-07-20 12:46] LABS: BASO # 0.07 [, K/mm3] (0.0-2.0); BASO % 0.8 % (0.0-3.0); EOS # 0.1 (0.0-0.7); EOS % 0.8 % (1.5-5.0); GRAN # 5.96 (1.4-6.5); HEMOGLOBIN 12.2 g/dL (14.0-18.0); LYMPH # 1.5 (1.2-3.4); LYMPH % 18.2 % (22.0-35.0); MEAN CELL VOLUME 85.5 fl (80.0-105.0); MEAN CORPUSCULAR HEMOGLOBIN 28.9 pg (25.0-35.0); MEAN CORPUSCULAR HGB CONC 33.8 g/dl (31.0-37.0); MEAN PLATELET VOLUME 8.5 fl (7.0-11.0); MONO # 0.7 (0.1-0.6); MONO % 8.2 % (1.0-6.0); RBC 4.22 [, 10^6/uL] (3.5-6.1); RED CELL DISTRIBUTION WIDTH 16.3 % (11.5-14.5); WHITE BLOOD COUNT 8.3 [, 10^3/ul] (4.5-11.0)
[2017-07-20] MEDS ORDERED: Insulin Regular 1 UNITS/0.01 ML ML IV STA (12:55)
[2017-07-20 13:02] LABS: URINE BACTERIA TRACE (NEG); URINE RBC NEGATIVE /hpf (0-2); URINE WBC 0 - 2 /hpf (0-6)
[2017-07-20 13:02] LABS: ALB/GLOB RATIO 1.3 (1.1-1.8); ALBUMIN 4.2 g/dL (3.0-4.8); CALCIUM 9.5 mg/dL (8.4-10.5)
[2017-07-20 13:04] LABS: PROTHROMBIN TIME 47.7 SECONDS (9.4-12.5)
[2017-07-20 13:05] LABS: PARTIAL THROMBOPLASTIN TIME 50.8 Seconds (25.1-36.5)
[2017-07-20 13:07] LABS: INR 4.03 (0.93-1.08)
[2017-07-20 14:09] VITALS: PULSE 75; RESP 16; O2SAT 95
--- NOTE | 2017-07-21 13:03 | CARD ---
APPROVED REPORT EKG Measurement Heart [id number] <Conclusion> Atrial fibrillation Left axis deviation/LAHB Incomplete right bundle branch block
== END 2017-07-20 14:56 | disposition home or self-care (01) ==
LOC: ED 11:22
DX: E11.65 Type 2 diabetes mellitus with hyperglycemia (principal); N19 Unspecified kidney failure; R79.1 Abnormal coagulation profile; I10 Essential (primary) hypertension; I48.91 Unspecified atrial fibrillation; Z79.01 Long term (current) use of anticoagulants; Z87.891 Personal history of nicotine dependence

== ENCOUNTER 2017-09-10 18:39 | Inpatient (IN) | payer MEDICARE, MEDICAID ==
[2017-09-10 18:40] VITALS: BMI 33.7
[2017-09-10] MEDS ORDERED: Sodium Chloride 0.9% 1,000 ML IV SCH (19:15)
--- NOTE | 2017-09-10 19:20 | EDPD ---
HPI Stroke - General Time Seen by Provider: 09/10/17 19:07 Chief Complaint: Medical Clearance Historian: Patient - History of Present Illness Narrative History of Present Illness (Free Text): 09/10/17 19:20 A 82 year old male, whose past medical history includes diabetes, hypertension, atrial fibrillation on coumadin and CHF, presents to the emergency department complaining of left arm and leg weakness since 06:00 this morning. Patient reports having these symptoms throughout the day with tremors in left arm. Patient denies any fever, chills, nausea, vomiting, abdominal pain, chest pain, shortness of breath, headache, dizziness, visual disturbances, changes in speech , facial weakness or any other complaints. Date:: 09/10/17 Time: 06:00 Onset:: Hours Timing: Currently Symptomatic Associated Symptoms: Tremors - Location Locate Left: Lower extremity rTPA Inclusion/Exclusion - Refusal of Treatment Patient Refused Treatment: No - Inclusion Criteria for Altepase Patient is 18 years or Older: Yes The Clinical Diagnosis of Ischemic Stroke That is Causing a Potentially Disabling Neurological Deficit: No Time of Onset is Well Established to be Less Than 270 Minute Before Treatment Would Begin: No Risk/Benefit Discussed With Patient/Family Member Present: Yes - Exclusion Criteria for Altepase Uncontrolled Hypertension at Time of Treatment (Systolic BP above 185 or Diastolic BP above 110 mmHg): No Active Internal Bleeding: No Known Bleeding Diathesis Including but Not Limited to: Platelets Below 100,000/ mm,PTT Above 40 sec After Heparin Use, Current Use of Oral Anitcoagulant With INR Greater Than 1.7 or PT Greater Than 15 secs: No Evidence of an Intracranial Hemorrhage: No Evidence of Major Acute Infarct With Signs Greater Than 1/3 MCA Territory: No Suspicion of Subarachnoid Hemorrhage on Pretreatment Evaluation Even if CT Head Negative For Hemorrhage: No - Warning to TPA With Conditions Following Conditions Weighed Against Anticipated Benefit: Yes Condition: Stroke Serevity Too Mild Past Medical History - Provider Review Nursing Documentation Reviewed: Yes - Infectious Disease Hx of Infectious Diseases: None - Tetanus Immunization Tetanus Immunization: Unknown - Cardiac Hx Cardiac Disorders: Yes (Afib (on Coumadin)) Hx Congestive Heart Failure: Yes Hx Hypertension: Yes - Pulmonary Hx Chronic Obstructive Pulmonary Disease (COPD): Yes - Neurological Hx Neurological Disorder: No - HEENT Hx HEENT Disorder: Yes Hx Cataracts: Yes Hx Glaucoma: Yes - Renal Hx Renal Disorder: No - Endocrine/Metabolic Hx Diabetes Mellitus Type 1: Yes - Hematological/Oncological Hx Blood Disorders: No - Integumentary Hx Dermatological Disorder: No - Musculoskeletal/Rheumatological Hx Musculoskeletal Disorders: Yes Hx Falls: Yes Other/Comment: walks with walker - Gastrointestinal Hx Gastrointestinal Disorders: Yes Hx Gastroesophageal Reflux: Yes Hx Gastrointestinal Ulcer: Yes - Genitourinary/Gynecological Other/Comment: prostate sx - Psychiatric Hx Psychophysiologic Disorder: No Hx Substance Use: No - Past Surgical History Past Surgical History: No Previous - Surgical History Hx Joint Replacement: Yes (left total knee replacemnt 07/2016) Other/Comment: prostate sx - Anesthesia Hx Anesthesia: Yes Hx Anesthesia Reactions: No Hx Malignant Hyperthermia: No - Suicidal Assessment Feels Threatened In Home Enviroment: No Family/Social History - Family/Social History Family History: Non-Contributory - Review Nursing documentation reviewed.: Yes Allergies/Home Meds Allergies/Adverse Reactions: Allergies No Known Allergies Allergy (Verified 09/10/17 18:49) Home Medications: Home Meds Medication Instructions Recorded Confirmed Alfuzosin HCl [Uroxatral] 10 mg PO DAILY 09/05/16 09/10/17 Dutasteride [Dutasteride] 0.5 mg PO DAILY 09/05/16 09/10/17 Insulin Lispro Mix 75/25 [HumaLOG 25 unit SC ACHS 09/05/16 09/10/17 Mix 75/25] Oxybutynin Chloride [Oxybutynin 5 mg PO Q8 09/05/16 09/10/17 Chloride ER] Pantoprazole [Protonix EC Tab] 40 mg PO DAILY 09/05/16 09/10/17 Pregabalin [Lyrica] 75 mg PO DAILY 09/05/16 09/10/17 Warfarin [Coumadin] 5 mg PO DAILY 09/05/16 09/10/17 Metoprolol Tartrate [Lopressor] 50 mg PO BID 03/30/17 09/10/17 Digoxin [Lanoxin] 250 mcg PO DAILY 07/20/17 09/10/17 Doxazosin Mesylate [Cardura Xl] 2 mg PO DAILY 07/20/17 09/10/17 Furosemide [Lasix] 40 mg PO DAILY 07/20/17 09/10/17 Nateglinide [Starlix] 60 mg PO TID 07/20/17 09/10/17 Paricalcitol [Zemplar] 1 mcg PO DAILY 07/20/17 09/10/17 Tamsulosin HCl [Flomax] 0.4 mg PO DAILY 07/20/17 09/10/17 Tramadol HCl [Ultram] 50 mg PO BID 07/20/17 09/10/17 Review of Systems - Physician Review All systems were reviewed & negative as marked: Yes - Review of Systems Constitutional: absent: Fevers, Night Sweats Eyes: absent: Vision Changes Respiratory: absent: SOB Cardiovascular: absent: Chest Pain Gastrointestinal: absent: Abdominal Pain, Nausea, Vomiting Neurological: Focal Weakness (Lest arm and leg weakness, with tremors in left arm). absent: Headache, Dizziness, Speech Changes, Facial Droop ED Stroke Physical Exam Vital Signs Reviewed: Yes Vital Signs Temp Pulse Resp BP Pulse Ox 09/10/17 18:53 98.0 F 98 H 16 114/70 98 Temperature: Afebrile Blood Pressure: Normal Pulse: Tachycardic Respiratory Rate: Normal Appearance: Positive for: Well-Appearing, Non-Toxic, Comfortable Pain Distress: None Mental Status: Positive for: Alert and Oriented X 3 Finger Stick Blood Glucose: 263 - Systems Exam Head: Present: Atraumatic, Normocephalic Pupils: Present: PERRL Extroacular Muscles: Present: EOMI Conjunctiva: Present: Normal Mouth: Present: Moist Mucous Membranes Neck: Present: Normal Range of Motion Respiratory/Chest: Present: Clear to Auscultation, Good Air Exchange. No: Respiratory Distress, Accessory Muscle Use Cardiovascular: Present: Regular Rate and Rhythm, Normal S1, S2. No: Murmurs Abdomen: Present: Normal Bowel Sounds. No: Tenderness, Distention, Peritoneal Signs Back: Present: GCS, CN, SP Upper Extremity: Present: NORMAL PULSES. No: Cyanosis, Edema, Tenderness, Swelling, Neurovascularly Intact (Left upper arm paresis) Lower Extremity: Present: NORMAL PULSES. No: Edema, CALF TENDERNESS, Tenderness , Swelling, Neurovascularly Intact (Left lower leg paresis) Neurologic: Present: GCS=15, CN II-XII Intact, Speech Normal, Normal Sensory Function, Normal Cerebellar Funct. No: Motor Func Grossly Intact (Mild left upper and lower extremity paresis) Skin: Present: Warm, Dry, Normal Color. No: Rashes Lymphatic: Present: OX3, NI, NC Psychiatric: Present: Alert, Oriented x 3, Normal Insight, Normal Concentration Medical Decision Making ED Course and Treatment: 09/10/17 19:20 Impression: A 82 year old male with left arm and leg weakness Plan: -- Head CTA -- Head CT -- Chest xray -- EKG -- Labs -- IV fluids -- Reassess and disposition Progress Notes: Stroke alert activated. Case discussed with neurologist Dr. Archer, recommends CTA of head, as well as, CT head without contrast. Further management pending results of CT studies. Patient is not a candidate for tPA given time window and discovered subdural hemorrhage. 09/10/17 20:[address] findings with neurosurgeon Dr. Diaz, agrees with reversal of patient INR at this time. After reviewing CT he states there is no surgical intervention required. 09/10/17 20:30 Case discussed with airplane cover maker Dr. Nguyen, states to send patient to the ICU for monitoring at this time. States he will evaluate patient in emergency room. 09/10/17 20:59 EKG shows atrial fibrillation at 97 BPM. No acute changes. Interpreted by me. 09/10/17 21:[address] Carroll, newspaper carriers supervisor covering for Dr. Lara, accepts pt on service. Requests only 1 unit of FFP and 190mg of Vitamin K be given only. - Critical Care Critical Care Minutes: 30 minutes - Lab Interpretations I have reviewed the lab results: Yes - RAD Interpretation Radiology Orders: 09/10/17 19:15 HEAD W/O (CODE STROKE) [CT] Stat CHEST PORTABLE [RAD] Stat - Medication Orders Current Medication Orders: Sodium Chloride (Sodium Chloride 0.9%) 1,000 mls @ 100 mls/hr IV .Q10H [place] - Scribe Statement The provider has reviewed the documentation as recorded by the Scribe Rubi Gallo Provider Scribe Attestation: All medical record entries made by the Scribe were at my direction and personally dictated by me. I have reviewed the chart and agree that the record accurately reflects my personal performance of the history, physical exam, medical decision making, and the department course for this patient. I have also personally directed, reviewed, and agree with the discharge instructions and disposition. NIHSS Scale ([place]) Time Performed: 19:07 - How Severe is the [place] Baseline Level of Consciousness: 0=Alert LOC to Questions: 0=Both comments correct LOC to commands: 0=Obeys both correctly Best Gaze: 0=Normal Visual: 0=No visual loss Facial: 0=Normal Motor Arm - Left: 1=Drift noted before 10 sec Motor Arm - Right: 0=No drift Motor Leg - Left: 1=Drift before 5 sec Motor Leg - Right: 0=No drift Limb Ataxia: 0=Absent Sensory: 0=Normal Best Language: 0=No aphasia Dysarthia: 0=Normal articulation Extinction & Inattention (Neglect): 0=Normal, no object (-) Score: 2 Risk Level: Minor Stroke Risk Disposition/Present on Arrival - Present on Arrival Any Indicators Present on Arrival: Yes History of DVT/PE: No History of Uncontrolled Diabetes: Yes Urinary Catheter: Yes History of Decub. Ulcer: No History Surgical Site Infection Following: None - Disposition Have Diagnosis and Disposition been Completed?: Yes Diagnosis: Subdural hemorrhage Disposition: HOSPITALIZED Disposition Time: 20:57 Patient Plan: Admission Patient Problems: Current Active Problems Problem Status Onset Subdural hemorrhage Acute Condition: STABLE
[2017-09-10 19:47] LABS: BASO # 0.06 K/mm3 (0.0-2.0); BASO % 0.6 % (0.0-3.0); EOS # 0.1 (0.0-0.7); EOS % 0.9 % (1.5-5.0); GRAN # 7.42 (1.4-6.5); GRAN % 77.7 % (50.0-68.0); HEMOGLOBIN 12.6 g/dL (14.0-18.0); LYMPH # 1.2 (1.2-3.4); LYMPH % 12.4 % (22.0-35.0); MEAN CELL VOLUME 88.4 fl (80.0-105.0); MEAN CORPUSCULAR HEMOGLOBIN 29.7 pg (25.0-35.0); MEAN CORPUSCULAR HGB CONC 33.6 g/dl (31.0-37.0); MEAN PLATELET VOLUME 8.4 fl (7.0-11.0); MONO # 0.8 (0.1-0.6); MONO % 8.4 % (1.0-6.0); RBC 4.24 10^6/uL (3.5-6.1); RED CELL DISTRIBUTION WIDTH 15.6 % (11.5-14.5); WHITE BLOOD COUNT 9.6 10^3/ul (4.5-11.0)
[2017-09-10 19:56] LABS: ALB/GLOB RATIO 1.1 (1.1-1.8); ALBUMIN 3.7 g/dL (3.0-4.8); ALT/SGPT 30 U/L (7-56); AST/SGOT 53 U/L (17-59); BLOOD UREA NITROGEN 31 mg/dL (7-21); CALCIUM 9.7 mg/dL (8.4-10.5); GFR AFRICAN-AMERICAN 50; GFR NON-AFRICAN AMERICAN 42; HDL CHOLESTEROL 35 mg/dL (29-60); INR 2.41 (0.93-1.08)
[2017-09-10 20:07] LABS: LDL CHOLESTEROL 60 mg/dL (0-129)
[2017-09-10 20:10] LABS: TROPONIN I < 0.01 ng/mL
[2017-09-10] MEDS ORDERED: Phytonadione 10 mg/ml Inj (Adult) SC STA (21:12)
--- NOTE | 2017-09-10 22:23 | CP.PCM.CON ---
<Telma Mcmanus - Last Filed: 09/10/17 23:01> History of Present Illness - History of Present Illness History of Present Illness: ICU Consult for Dinora Boland PGY2 Reason for consult: Acute on chronic subdural hematoma This is an 82yo M with past medical history of falls, BPH, GERD, CHF, IDDM, HTN , CKD, A.fib on Coumadin here for tremors in his L arm. Patient states that since this morning he was having weakness and tremors on his L upper extremity. He has never had this before. Patient report it lasted throughout the day and it did not get better so he decided to come to the ED. He denies vision changes , recent head trauma, falls, chest pain, shortness of breath, numbness/tingling , fever, chills, dysuria or hematuria. In the ED, patient was found to have R acute on chronic subdural hematoma with about 5mm shift. Neurosurgery was consulted and states no surgical intervention at this time. Patient is on Coumadin and found to have INR of 2.41. He was given vitamin K in the ED. Past medical history: IDDM, GERD, BPH, CHF, HTN, a.fib on Coumadin, CKD, frequent falls Past surgical history: L total knee replacement 2017 Home meds: As per MAR Allergies: NKDA SH: Denies EtOH, tobacco, or drug use. Review of Systems - Review of Systems Review of Systems: 12 Point ROS reviewed as per HPI. Past Patient History - Infectious Disease Hx of Infectious Diseases: None - Tetanus Immunizations Tetanus Immunization: Unknown - Past Social History Smoking Status: Former Smoker Alcohol: None Drugs: Denies Home Situation {Lives}: With Family - CARDIAC Hx Cardiac Disorders: Yes (Afib (on Coumadin)) Hx Congestive Heart Failure: Yes Hx Hypertension: Yes - PULMONARY Hx Chronic Obstructive Pulmonary Disease (COPD): Yes - NEUROLOGICAL Hx Neurological Disorder: No - HEENT Hx HEENT Problems: Yes Hx Cataracts: Yes Hx Glaucoma: Yes - RENAL Hx Chronic Kidney Disease: No - ENDOCRINE/METABOLIC Hx Diabetes Mellitus Type 1: Yes - HEMATOLOGICAL/ONCOLOGICAL Hx Blood Disorders: No - INTEGUMENTARY Hx Dermatological Problems: No - MUSCULOSKELETAL/RHEUMATOLOGICAL Hx Musculoskeletal Disorders: Yes Hx Falls: Yes Other/Comment: walks with walker - GASTROINTESTINAL Hx Gastrointestinal Disorders: Yes Hx Gastroesophageal Reflux: Yes - GENITOURINARY/GYNECOLOGICAL Other/Comment: prostate sx - PSYCHIATRIC Hx Psychophysiologic Disorder: No Hx Substance Use: No - SURGICAL HISTORY Hx Joint Replacement: Yes (left total knee replacemnt 07/2016) Other/Comment: prostate sx - ANESTHESIA Hx Anesthesia: Yes Hx Anesthesia Reactions: No Hx Malignant Hyperthermia: No Meds Allergies/Adverse Reactions: Allergies Allergy/AdvReac Type Severity Reaction Status Date / Time No Known Allergies Allergy Verified 09/10/17 18:49 - Medications Medications: Current Medications Digoxin (Lanoxin) 0.25 mg PO DAILY [facility] Furosemide (Lasix) 40 mg PO DAILY [facility] Sodium Chloride (Sodium Chloride 0.9%) 1,000 mls @ 100 mls/hr IV .Q10H [facility] Last Admin: 09/10/17 20:04 Dose: 100 mls/hr Insulin Lispro Protam/Lispro Human (Humalog Mix 75/25) 15 units SC ACHS [facility] Metoprolol Tartrate (Lopressor) 50 mg PO BID [facility] Nateglinide (Starlix) 60 mg PO TID [facility] Non-Formulary Medication (Alfuzosin Hcl [Uroxatral]) 10 mg PO DAILY [facility] Non-Formulary Medication (Doxazosin Mesylate [Cardura Xl]) 2 mg PO DAILY [facility] Non-Formulary Medication (Dutasteride [Dutasteride]) 0.5 mg PO DAILY [facility] Non-Formulary Medication (Oxybutynin Chloride [Oxybutynin Chloride Er]) 5 mg PO Q8 [facility] Non-Formulary Medication (Paricalcitol [Zemplar]) 1 mcg PO DAILY [facility] Pantoprazole Sodium (Protonix Ec Tab) 40 mg PO DAILY [facility] Pregabalin (Lyrica) 75 mg PO DAILY [facility] Tamsulosin HCl (Flomax) 0.4 mg PO DAILY [facility] Physical Exam - Constitutional Appears: No Acute Distress - Head Exam Head Exam: ATRAUMATIC, NORMAL INSPECTION, NORMOCEPHALIC - Eye Exam Eye Exam: Normal appearance, PERRL Pupil Exam: NORMAL ACCOMODATION, PERRL - ENT Exam ENT Exam: Mucous Membranes Moist - Respiratory Exam Respiratory Exam: Clear to Auscultation Bilateral, NORMAL BREATHING PATTERN. absent: Rales, Rhonchi, Wheezes, Stridor - Cardiovascular Exam Cardiovascular Exam: Irregular Rhythm, +S1, +S2. absent: Tachycardia, Gallop, Rubs, Systolic Murmur - GI/Abdominal Exam GI & Abdominal Exam: Normal Bowel Sounds, Soft. absent: Mass, Rebound, Rigid, Tenderness - Extremities Exam Extremities exam: Positive for: normal inspection. Negative for: calf tenderness, pedal edema - Neurological Exam Neurological exam: Alert, CN II-XII Intact, Oriented x3 - Expanded Neurological Exam Expanded Patient oriented to: person, place, time Cerebellar Function: Finger to Nose: Abnormal Left Upper motor neuron: Babinski Sign: Normal, Kamaljit Neglect: Normal, Pronator Drift : Normal, Sensory Extinction: Normal Sensory exam: Lower Extremity 2 Point Discrimination: Normal, Lower Extremity Light Touch: Normal, Upper Extremity 2 Point Discrimination: Normal, Upper Extremity Light Touch: Normal Neuro motor strength exam: Left Upper Extremity: 5, Right Upper Extremity: 5, Left Lower Extremity: 5, Right Lower Extremity: 5 Coma Scale Eye Opening: SPONTANEOUS Coma Scale Motor Response: OBEYS COMMANDS Coma Scale Verbal: Oriented Coma Scale Total: 15 - Psychiatric Exam Psychiatric exam: Normal Affect, Normal Mood - Skin Skin Exam: Dry, Intact, Warm Results - Vital Signs Recent Vital Signs: Last Vital Signs Temp 98.3 F 09/10/17 21:58 Pulse 83 09/10/17 21:58 Resp 18 09/10/17 21:58 BP 127/77 09/10/17 21:58 Pulse Ox 99 09/10/17 21:58 - Labs Result Diagrams: 09/10/17 19:30 09/10/17 19:30 Assessment & Plan - Assessment and Plan (Free Text) Assessment: This is an 82yo M with past medical history of falls, BPH, GERD, CHF, IDDM, HTN , CKD, A.fib on Coumadin admitted to ICU for further monitoring of acute of chronic subdural hematoma. Plan: Neuro: Acute on chronic subdural hematoma seen on head CT CTA of head and neck did not show any acute abnormalities Neurosurgery consulted- reports no acute intervention at this time Neuro consulted Neuro checks q1h Hold anticoagulants Fall precaution Aspiration precaution NPO CV: Hx of a.fib on Coumadin as well as HTN and CHF INR: 2.4 s/p Vit K- will give 2U FFP Will check INR in AM Cardio consulted for further recommendations of anticoagulation on A.fib Continue Digoxin, Lasix and Lopressor EKG showed a.fib, rate controlled at 95 BPM Pulm: Patient comfortable on room air Aspiration precaution HOB elevated 45 degrees GI: NPO NS@75 Nephro: Hx of BPH and CKD Will continue home meds: Doxazosin, Dutasteride, Flomax and Alfuzosin Monitor I&O Cr: 1.6 which is better than baseline Cr of 1.9 Heme: On Coumadin- will reverse with FFP and vitamin K Hold anticoagulants Thrombocytosis most likely reactive Will check INR and CBC in AM Endo: Hx of IDDM Pt is on Insulin 25U ACHS at home- will place on 15U because patient NPO Will maintain euglycemia and hold oral anti-gylcemic agents GI ppx: Protonix DVT ppx: SCDs- no anticoagulation due to active bleed Case seen, discussed and reviewed with attending. Dinora Mcmanus PGY2 - Date & Time Date: 09/10/17 Time: 23:03 <Filemon Nguyen - Last Filed: 09/11/17 03:28> Meds - Medications Medications: Current Medications Digoxin (Lanoxin) 0.25 mg PO 1400 [facility] Furosemide (Lasix) 40 mg PO DAILY [facility] Sodium Chloride (Sodium Chloride 0.9%) 1,000 mls @ 75 mls/hr IV .[id number] [facility] Last Admin: 09/11/17 01:11 Dose: 75 mls/hr Insulin Human Regular (Humulin R Low) 0 units SC ACHS [facility] PRN Reason: Protocol Insulin Lispro Protam/Lispro Human (Humalog Mix 75/25) 15 units SC ACHS [facility] Metoprolol Tartrate (Lopressor) 50 mg PO BID [facility] Non-Formulary Medication (Alfuzosin Hcl [Uroxatral]) 10 mg PO DAILY [facility] Non-Formulary Medication (Doxazosin Mesylate [Cardura Xl]) 2 mg PO DAILY [facility] Non-Formulary Medication (Dutasteride [Dutasteride]) 0.5 mg PO DAILY [facility] Non-Formulary Medication (Paricalcitol [Zemplar]) 1 mcg PO DAILY [facility] Oxybutynin Chloride (Ditropan Tab) 5 mg PO Q8 [facility] Pantoprazole Sodium (Protonix Ec Tab) 40 mg PO 0600 [facility] Pregabalin (Lyrica) 75 mg PO DAILY [facility] Tamsulosin HCl (Flomax) 0.4 mg PO DAILY [facility] Results - Vital Signs Recent Vital Signs: Last Vital Signs Temp 98.1 F 09/11/17 00:24 Pulse 84 03/11/18 00:24 Resp 21 09/11/17 00:24 BP 136/78 09/11/17 00:24 Pulse Ox 99 09/10/17 23:00 - Labs Result Diagrams: 09/10/17 19:30 09/10/17 19:30 Attending/Attestation - Attestation I have personally seen and examined this patient.: Yes I have fully participated in the care of the patient.: Yes I have reviewed all pertinent clinical information: Yes Notes (Text): 09/11/17 03:16 I agree with the above mentioned report and exam by the resident with the addition/exception of the followin82 y/o male with Htn, DM, Afib on coumadin, BPH presented with feelings of numbness and "jerking" of his left upper extremity. Pt found to have an acute on chronic SDH; ED (Dr. Wynn) discussed the case with NeuroSx (Dr. Diaz ) and was told the patient does not require an emergent intervention at this time; correcting his elevated INR (due to coumadin use 2/2 Afib) with Vit K, FFP and providing supportive care overnight. Patient to be seen by NeuroSx later today Case discussed at length with Dr. Wynn from the ER labs and images available thus far have been reviewed total time of care: 40 minutes
[2017-09-11] MEDS: Sodium Chloride 0.9% 1,000 ML IV SCH ×2 (01:11→16:50)
[2017-09-11] MEDS: Pantoprazole 40 mg EC Tab PO SCH (05:15)
[2017-09-11 06:08] LABS: BASO # 0.05 K/mm3 (0.0-2.0); BASO % 0.7 % (0.0-3.0); EOS # 0.1 (0.0-0.7); EOS % 1.2 % (1.5-5.0); GRAN # 5.32 (1.4-6.5); GRAN % 71.2 % (50.0-68.0); HEMOGLOBIN 11.4 g/dL (14.0-18.0); LYMPH # 1.3 (1.2-3.4); LYMPH % 17.1 % (22.0-35.0); MEAN CELL VOLUME 88.3 fl (80.0-105.0); MEAN CORPUSCULAR HEMOGLOBIN 29.1 pg (25.0-35.0); MEAN CORPUSCULAR HGB CONC 32.9 g/dl (31.0-37.0); MEAN PLATELET VOLUME 8.2 fl (7.0-11.0); MONO # 0.7 (0.1-0.6); MONO % 9.8 % (1.0-6.0); RBC 3.92 10^6/uL (3.5-6.1); RED CELL DISTRIBUTION WIDTH 15.7 % (11.5-14.5); WHITE BLOOD COUNT 7.5 10^3/ul (4.5-11.0)
[2017-09-11 06:16] LABS: ALB/GLOB RATIO 1.2 (1.1-1.8); ALBUMIN 3.6 g/dL (3.0-4.8); CALCIUM 9.6 mg/dL (8.4-10.5)
[2017-09-11 07:52] LABS: INR 1.96 (0.93-1.08); PROTHROMBIN TIME 22.8 SECONDS (9.4-12.5)
[2017-09-11] MEDS: Insulin Reg-LOW-Coverage SC SCH ×4 (08:24→21:58)
--- NOTE | 2017-09-11 09:18 | CT ---
PROCEDURE: CT HEAD WITHOUT CONTRAST. HISTORY: Code Stroke COMPARISON: 08/16/2016 TECHNIQUE: Axial computed tomography images were obtained through the head/brain without intravenous contrast. Radiation dose: Total exam DLP = 1067.14 mGy-cm. This CT exam was performed using one or more of the following dose reduction techniques: Automated exposure control, adjustment of the mA and/or kV according to patient size, and/or use of iterative reconstruction technique. FINDINGS: HEMORRHAGE: Extra-axial fluid collection, right parietotemporal region subdural hematoma. Maximum thickness 10.8 mm. BRAIN: Considerable effacement of cortical sulci noted in the right hemisphere. Approximately 3 mm midline shift identified. No evidence of herniation. Stable cortical atrophy. VENTRICLES: Unremarkable. No hydrocephalus. CALVARIUM: Unremarkable. PARANASAL SINUSES: Unremarkable as visualized. No significant inflammatory changes. MASTOID AIR CELLS: Unremarkable as visualized. No inflammatory changes. OTHER FINDINGS: None. IMPRESSION: Acute right subdural hematoma a, evidence of chronic extra-axial fluid with considerable edema, mass effect approximately 3 mm of midline shift. Concordant results (preliminary interpretation) provided by [employer]. Procedure Completed: 19:44 Preliminary ([facility]) Report: Dictated and Authenticated: 20:02 Final Interpretation: 09:16 September 11, 2017.
[2017-09-11] MEDS ORDERED: PARICALCITOL 1 MCG PO SCH (10:00)
--- NOTE | 2017-09-11 10:05 | CP.PCM.CON ---
History of Present Illness - History of Present Illness History of Present Illness: consult dictated moderate sized acute on chronic R SDH transient L ue weakness on coumadin currently stable Rec SDH evacuation when INR normalized D/W Pt - is agreeable will schedule Past Patient History - Infectious Disease Hx of Infectious Diseases: None - Tetanus Immunizations Tetanus Immunization: Unknown - Past Social History Smoking Status: Former Smoker - CARDIAC Hx Cardiac Disorders: Yes (Afib (on Coumadin)) Hx Congestive Heart Failure: Yes Hx Hypertension: Yes - PULMONARY Hx Respiratory Disorders: Yes Hx Chronic Obstructive Pulmonary Disease (COPD): Yes - NEUROLOGICAL Hx Neurological Disorder: No - HEENT Hx HEENT Problems: Yes Hx Cataracts: Yes Hx Glaucoma: Yes (right) - RENAL Hx Chronic Kidney Disease: No - ENDOCRINE/METABOLIC Hx Endocrine Disorders: Yes Hx Diabetes Mellitus Type 1: Yes - HEMATOLOGICAL/ONCOLOGICAL Hx Blood Disorders: No - INTEGUMENTARY Hx Dermatological Problems: No - MUSCULOSKELETAL/RHEUMATOLOGICAL Hx Musculoskeletal Disorders: Yes Hx Falls: Yes Other/Comment: walks with rolling walker - GASTROINTESTINAL Hx Gastrointestinal Disorders: Yes Hx Gastroesophageal Reflux: Yes - GENITOURINARY/GYNECOLOGICAL Hx Genitourinary Disorders: Yes Other/Comment: prostate sx - PSYCHIATRIC Hx Psychophysiologic Disorder: No - SURGICAL HISTORY Hx Surgeries: Yes Hx Joint Replacement: Yes (left total knee replacemnt 07/2016) Other/Comment: prostate sx - ANESTHESIA Hx Anesthesia: Yes Hx Anesthesia Reactions: No Hx Malignant Hyperthermia: No Meds Allergies/Adverse Reactions: Allergies Allergy/AdvReac Type Severity Reaction Status Date / Time No Known Allergies Allergy Verified 09/10/17 18:49 - Medications Medications: Current Medications Digoxin (Digoxin) 0.125 mg PO 1400 [facility] Furosemide (Lasix) 40 mg PO DAILY [facility] Last Admin: 09/11/17 09:23 Dose: 40 mg Sodium Chloride (Sodium Chloride 0.9%) 1,000 mls @ 75 mls/hr IV .[id number] [facility] Last Admin: 09/11/17 01:11 Dose: 75 mls/hr Insulin Human Regular (Humulin R Low) 0 units SC [facility] PRN Reason: Protocol Last Admin: 09/11/17 08:24 Dose: 1 units Insulin Lispro Protam/Lispro Human (Humalog Mix 75/25) 15 units SC [facility] Metoprolol Tartrate (Lopressor) 50 mg PO BID [facility] Last Admin: 09/11/17 09:23 Dose: 50 mg Non-Formulary Medication (Alfuzosin Hcl [Uroxatral]) 10 mg PO DAILY [facility] Non-Formulary Medication (Doxazosin Mesylate [Cardura Xl]) 2 mg PO DAILY [facility] Non-Formulary Medication (Dutasteride [Dutasteride]) 0.5 mg PO DAILY [facility] Non-Formulary Medication (Paricalcitol [Zemplar]) 1 mcg PO DAILY [facility] Oxybutynin Chloride (Ditropan Tab) 5 mg PO Q8 [facility] Last Admin: 09/11/17 05:15 Dose: 5 mg Pantoprazole Sodium (Protonix Ec Tab) 40 mg PO 0600 [facility] Last Admin: 09/11/17 05:15 Dose: 40 mg Pregabalin (Lyrica) 75 mg PO DAILY [facility] Last Admin: 09/11/17 09:23 Dose: 75 mg Tamsulosin HCl (Flomax) 0.4 mg PO DAILY [facility] Last Admin: 09/11/17 09:23 Dose: 0.4 mg Tramadol HCl (Ultram) 50 mg PO BID [facility] PRN Reason: Pain, moderate (4-7) Results - Vital Signs Recent Vital Signs: Last Vital Signs Temp 98.2 F 09/11/17 07:00 Pulse 83 09/11/17 09:23 Resp 27 H 09/11/17 08:10 BP 129/77 09/11/17 09:23 Pulse Ox 97 09/11/17 08:10 - Labs Result Diagrams: 09/11/17 05:00 09/11/17 05:00 Labs: Laboratory Results - last 24 hr 09/10/17 09/11/17 09/11/17 23:33 05:00 05:00 WBC 7.5 D RBC 3.92 Hgb 11.4 L Hct 34.6 L MCV 88.3 MCH 29.1 MCHC 32.9 RDW 15.7 H Plt Count 674 H MPV 8.2 Gran % 71.2 H Lymph % (Auto) 17.1 L [place] % (Auto) 9.8 H Eos % (Auto) 1.2 L Baso % (Auto) 0.7 Gran # 5.32 Lymph # (Auto) 1.3 [place] # (Auto) 0.7 H Eos # (Auto) 0.1 Baso # (Auto) 0.05 PT 22.8 H INR 1.96 H Sodium Potassium Chloride Carbon Dioxide Anion Gap BUN Creatinine Est GFR ( Amer) Est GFR (Non-Af Amer) POC Glucose (mg/dL) 171 H Random Glucose Calcium Total Bilirubin AST ALT Alkaline Phosphatase Total Protein Albumin Globulin Albumin/Globulin Ratio Digoxin 09/11/17 09/11/17 09/11/17 05:00 05:45 06:08 WBC RBC Hgb Hct MCV MCH MCHC RDW Plt Count MPV Gran % Lymph % (Auto) [place] % (Auto) Eos % (Auto) Baso % (Auto) Gran # Lymph # (Auto) [place] # (Auto) Eos # (Auto) Baso # (Auto) PT INR Sodium 138 Potassium 4.0 Chloride 102 Carbon Dioxide 26 Anion Gap 14 BUN 26 H Creatinine 1.5 Est GFR ( Amer) 54 Est GFR (Non-Af Amer) 45 POC Glucose (mg/dL) 191 H Random Glucose 200 H Calcium 9.6 Total Bilirubin 0.6 AST 59 ALT 29 Alkaline Phosphatase 102 Total Protein 6.7 Albumin 3.6 Globulin 3.1 Albumin/Globulin Ratio 1.2 Digoxin < 0.4 L
[2017-09-11] MEDS: Phytonadione 10 mg/ml Inj (Adult) SC SCH (11:09)
--- NOTE | 2017-09-11 12:05 | RAD ---
HISTORY: Code Stroke COMPARISON: 07/20/2017 FINDINGS: LUNGS: No active pulmonary disease. PLEURA: No significant pleural effusion identified, no pneumothorax apparent. CARDIOVASCULAR: No radiographic findings to suggest acute or significant cardiovascular disease. OSSEOUS STRUCTURES: No significant abnormalities. VISUALIZED UPPER ABDOMEN: Normal. OTHER FINDINGS: None. IMPRESSION: No active disease. No significant interval change compared to the prior examination(s).
--- NOTE | 2017-09-11 13:47 | CP.PCM.CON ---
History of Present Illness - History of Present Illness History of Present Illness: 82yo M with pmh of DM, HTN, CKD, who has afib on coumadin and presented to the ER last night as a code stroke, with left arm weakness that was present fo over 12 hours. He was not a TPA candidate due to the time of presentation. He denies vision changes, recent head trauma, falls, chest pain, shortness of breath, numbness/tingling, fever, chills, dysuria or hematuria. CT scan in the er showed a R acute on chronic subdural hematoma with about 5mm shift, with INR of 2.4. He was given VitaminK, and neurosurgery was consulted, with no intervention recommended. Since last night, he hasbeen well with no new headache, no seizures, no other complaints. Past medical history: IDDM, GERD, BPH, CHF, HTN, a.fib on Coumadin, CKD, frequent falls Past surgical history: L total knee replacement 2016 Home meds: As per [facility] Allergies: NKDA SH: Denies EtOH, tobacco, or drug use. On exam: AAox2. PERRL EOMI. No facial droop. CN -12 normal. motor: left drift, and left 4/5 weaknes noted in the left proximal muscles. Follows commands, however he is not able to draw a clock, or intersecting pentgons. Can name objects andrepeat. He has ideamotor apraxia as well. Snesory: normal. Gait : normal Past Patient History - Infectious Disease Hx of Infectious Diseases: None - Tetanus Immunizations Tetanus Immunization: Unknown - Past Social History Smoking Status: Former Smoker - CARDIAC Hx Cardiac Disorders: Yes (Afib (on Coumadin)) Hx Congestive Heart Failure: Yes Hx Hypertension: Yes - PULMONARY Hx Respiratory Disorders: Yes Hx Chronic Obstructive Pulmonary Disease (COPD): Yes - NEUROLOGICAL Hx Neurological Disorder: No - HEENT Hx HEENT Problems: Yes Hx Cataracts: Yes Hx Glaucoma: Yes (right) - RENAL Hx Chronic Kidney Disease: No - ENDOCRINE/METABOLIC Hx Endocrine Disorders: Yes Hx Diabetes Mellitus Type 1: Yes - HEMATOLOGICAL/ONCOLOGICAL Hx Blood Disorders: No - INTEGUMENTARY Hx Dermatological Problems: No - MUSCULOSKELETAL/RHEUMATOLOGICAL Hx Musculoskeletal Disorders: Yes Hx Falls: Yes Other/Comment: walks with rolling walker - GASTROINTESTINAL Hx Gastrointestinal Disorders: Yes Hx Gastroesophageal Reflux: Yes - GENITOURINARY/GYNECOLOGICAL Hx Genitourinary Disorders: Yes Other/Comment: prostate sx - PSYCHIATRIC Hx Psychophysiologic Disorder: No - SURGICAL HISTORY Hx Surgeries: Yes Hx Joint Replacement: Yes (left total knee replacemnt 07/2016) Other/Comment: prostate sx - ANESTHESIA Hx Anesthesia: Yes Hx Anesthesia Reactions: No Hx Malignant Hyperthermia: No Meds Allergies/Adverse Reactions: Allergies Allergy/AdvReac Type Severity Reaction Status Date / Time No Known Allergies Allergy Verified 09/10/17 18:49 - Medications Medications: Current Medications Digoxin (Digoxin) 0.125 mg PO 1400 [facility] Furosemide (Lasix) 40 mg PO DAILY [facility] Last Admin: 09/11/17 09:23 Dose: 40 mg Sodium Chloride (Sodium Chloride 0.9%) 1,000 mls @ 75 mls/hr IV .[id number] [facility] Last Admin: 09/11/17 01:11 Dose: 75 mls/hr Insulin Human Regular (Humulin R Low) 0 units SC [facility] PRN Reason: Protocol Last Admin: 09/11/17 08:24 Dose: 1 units Insulin Lispro Protam/Lispro Human (Humalog Mix 75/25) 15 units SC [facility] Metoprolol Tartrate (Lopressor) 50 mg PO BID [facility] Last Admin: 09/11/17 09:23 Dose: 50 mg Non-Formulary Medication (Alfuzosin Hcl [Uroxatral]) 10 mg PO DAILY [facility] Non-Formulary Medication (Doxazosin Mesylate [Cardura Xl]) 2 mg PO DAILY [facility] Non-Formulary Medication (Dutasteride [Dutasteride]) 0.5 mg PO DAILY [facility] Non-Formulary Medication (Paricalcitol [Zemplar]) 1 mcg PO DAILY [facility] Oxybutynin Chloride (Ditropan Tab) 5 mg PO Q8 [facility] Last Admin: 09/11/17 05:15 Dose: 5 mg Pantoprazole Sodium (Protonix Ec Tab) 40 mg PO 0600 [facility] Last Admin: 09/11/17 05:15 Dose: 40 mg Phytonadione (Vitamin K Inj) 10 mg SC DAILY [facility] Last Admin: 09/11/17 11:09 Dose: 10 mg Pregabalin (Lyrica) 75 mg PO DAILY [facility] Last Admin: 09/11/17 09:23 Dose: 75 mg Tamsulosin HCl (Flomax) 0.4 mg PO DAILY [facility] Last Admin: 09/11/17 09:23 Dose: 0.4 mg Tramadol HCl (Ultram) 50 mg PO BID [facility] PRN Reason: Pain, moderate (4-7) Results - Vital Signs Recent Vital Signs: Last Vital Signs Temp 98.2 F 09/11/17 07:00 Pulse 67 09/11/17 10:30 Resp 24 09/11/17 10:30 BP 106/64 09/11/17 10:00 Pulse Ox 96 09/11/17 10:30 - Labs Result Diagrams: 09/11/17 05:00 09/11/17 05:00 Labs: Laboratory Results - last 24 hr 09/10/17 09/11/17 09/11/17 23:33 05:00 05:00 WBC 7.5 D RBC 3.92 Hgb 11.4 L Hct 34.6 L MCV 88.3 MCH 29.1 MCHC 32.9 RDW 15.7 H Plt Count 674 H MPV 8.2 Gran % 71.2 H Lymph % (Auto) 17.1 L [place] % (Auto) 9.8 H Eos % (Auto) 1.2 L Baso % (Auto) 0.7 Gran # 5.32 Lymph # (Auto) 1.3 [place] # (Auto) 0.7 H Eos # (Auto) 0.1 Baso # (Auto) 0.05 PT 22.8 H INR 1.96 H Sodium Potassium Chloride Carbon Dioxide Anion Gap BUN Creatinine Est GFR ( Amer) Est GFR (Non-Af Amer) POC Glucose (mg/dL) 171 H Random Glucose Calcium Total Bilirubin AST ALT Alkaline Phosphatase Total Protein Albumin Globulin Albumin/Globulin Ratio Digoxin 09/11/17 09/11/17 09/11/17 05:00 05:45 06:08 WBC RBC Hgb Hct MCV MCH MCHC RDW Plt Count MPV Gran % Lymph % (Auto) [place] % (Auto) Eos % (Auto) Baso % (Auto) Gran # Lymph # (Auto) [place] # (Auto) Eos # (Auto) Baso # (Auto) PT INR Sodium 138 Potassium 4.0 Chloride 102 Carbon Dioxide 26 Anion Gap 14 BUN 26 H Creatinine 1.5 Est GFR ( Amer) 54 Est GFR (Non-Af Amer) 45 POC Glucose (mg/dL) 191 H Random Glucose 200 H Calcium 9.6 Total Bilirubin 0.6 AST 59 ALT 29 Alkaline Phosphatase 102 Total Protein 6.7 Albumin 3.6 Globulin 3.1 Albumin/Globulin Ratio 1.2 Digoxin < 0.4 L 09/11/17 10:18 WBC RBC Hgb Hct MCV MCH MCHC RDW Plt Count MPV Gran % Lymph % (Auto) [place] % (Auto) Eos % (Auto) Baso % (Auto) Gran # Lymph # (Auto) [place] # (Auto) Eos # (Auto) Baso # (Auto) PT INR Sodium Potassium Chloride Carbon Dioxide Anion Gap BUN Creatinine Est GFR ( Amer) Est GFR (Non-Af Amer) POC Glucose (mg/dL) 216 H Random Glucose Calcium Total Bilirubin AST ALT Alkaline Phosphatase Total Protein Albumin Globulin Albumin/Globulin Ratio Digoxin Assessment & Plan - Assessment and Plan (Free Text) Assessment: 82 yr old male with acute on chronic subdural and 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 plan: 1. continue vitamin K 2. Repeat CT head am 3. no anticoagulants 4. start aricept at 10 mg daily 5. Physical therapy for gait training. Dr Archer
[2017-09-11] MEDS ORDERED: Digoxin 250 mcg (0.25 mg) Tab PO SCH (14:00)
[2017-09-11] MEDS: Digoxin 125 mcg (0.125 mg) Tab PO SCH (14:50)
--- NOTE | 2017-09-11 18:37 | CON ---
DATE: 09/11/2017 REQUESTING PHYSICIAN: Andreia Carroll MD. REASON FOR CONSULTATION: Atrial fibrillation and subdural hematoma. HISTORY OF PRESENT ILLNESS: This is an 82-year-old man known to us from prior admissions with a history of chronic atrial fibrillation, maintained on Coumadin therapy who presented to the emergency room with complaints of weakness of his left arm and leg. A CT of the head showed evidence of a subdural hematoma. He was admitted to the CCU, has been treated with vitamin K and fresh frozen plasma. He denies any recent falls, but does state that his gait has been somewhat unsteady for sometime. He denies any head trauma. He has had no chest pain or dyspnea. He is unaware of any palpitations. PAST MEDICAL HISTORY: Notable for the problems mentioned above. He has a history of hypertension and COPD. Past history is also notable for prior left total knee replacement last year. He has a history of gastroesophageal reflux disease, diabetes, hypertension, and BPH. He also has cataracts and glaucoma. MEDICATIONS: At home, included metoprolol 50 mg b.i.d., digoxin 0.25 mg daily, Coumadin 5 mg daily, Lyrica, Protonix, oxybutynin, Uroxatral, dutasteride, insulin, Cardura, Lasix 40 mg daily, Starlix 60 mg t.i.d., Zemplar, Flomax, and Ultram. ALLERGIES: NONE. SOCIAL HISTORY: He does not smoke or drink. FAMILY HISTORY: Both parents from age-related illness. REVIEW OF SYSTEMS: A 10-point review of systems is otherwise unremarkable. PHYSICAL EXAMINATION: GENERAL: He is an elderly man who appears comfortable at rest. He is sitting in a chair in the CCU. VITAL SIGNS: His blood pressure is 122/80 with pulse of 90, in atrial fibrillation; respirations are 16. He is afebrile. HEENT: Normocephalic, atraumatic. NECK: Supple. No JVD noted. CHEST: Few scattered rhonchi heard. HEART: PMI displaced laterally with an irregularly irregular rhythm. A systolic murmur is present at the lower left sternal border. ABDOMEN: Soft, nontender with normoactive bowel sounds. EXTREMITIES: No clubbing, cyanosis, or edema. SKIN: Warm and dry. PSYCHIATRIC: Normal mood and affect. NEUROLOGIC: Alert and oriented x3. Handgrip appears equal bilaterally. He does have some weakness of his left leg; however, this maybe due to reduced knee mobility following his knee replacement surgery. DIAGNOSTIC DATA: Potassium is 4.0, BUN and creatinine 26 and 1.5, glucose is 200. White count 7.5, hemoglobin and hematocrit 11.4 and 34.6 with platelet count 674,000. Troponin is negative. PT/INR from yesterday was 28.0 and 2.4, repeat is pending. Electrocardiogram reveals atrial fibrillation with nonspecific ST-T abnormalities. Chest x-ray reveals somewhat limited inspiratory effort, cardiac silhouette appears normal in size, perihilar vascular markings appear somewhat increased, no effusions noted. Head CT report is pending but appears to show a right-sided subdural hematoma, questionable borderline shift. IMPRESSION: 1. Neurologic deficit, felt secondary to his subdural hematoma. 2. Elevated INR due to chronic Coumadin therapy for thromboembolic prevention in the setting of atrial fibrillation. 3. Chronic atrial fibrillation with controlled rate. 4. Rest of problems as noted. RECOMMENDATIONS: Continued correction of his coagulopathy is advised. Rate control therapy for his atrial fibrillation will continue. Digoxin dose will be reduced to 0.125 mg daily for his age. Further recommendations will be made based upon his clinical course and response to the above intervention. Thank you for this consultation. We will be happy to follow along as needed. Josue Lim MD [facility]
--- NOTE | 2017-09-11 23:08 | CARD ---
APPROVED REPORT EKG Measurement Heart [id number] <Conclusion> Atrial fibrillation Abnormal ECG
--- NOTE | 2017-09-12 01:08 | HP ---
HISTORY OF PRESENT ILLNESS: Mr. Chi is an 82-year-old male, admitted to the hospital with left arm and left leg weakness for 1 day. He has a history of coronary artery disease, atrial fibrillation, congestive cardiac failure, has been on Coumadin with therapeutic INR. CAT scan of the head showed right subdural hematuria with 3 mm midline shift. He was not found to be the candidate for t-PA. Stroke code was called in the ER. Currently, in ICU. PAST MEDICAL HISTORY: History of atrial fibrillation, CHF, hypertension, COPD, BPH, diabetes mellitus type 2. PAST SURGICAL HISTORY: Total knee replacement, prostate surgery. FAMILY HISTORY: Noncontributory. PERSONAL HISTORY: Nonsmoker. No history of alcohol abuse. ALLERGIES: NO KNOWN DRUG ALLERGIES. MEDICATIONS: , insulin, oxybutynin, Protonix, pregabalin, Coumadin, metoprolol, digoxin, Lasix, Flomax, Ultram. REVIEW OF SYSTEMS: As per HPI. Rest of 12-point review of systems reviewed negative. PHYSICAL EXAMINATION: GENERAL: Comfortable in bed, no acute distress. VITAL SIGNS: Temperature 98, heart rate is 98 per minute, respiratory rate 16 per minute, blood pressure 114/70, pulse ox 98% on room air. HEENT: Head atraumatic. HEENT Normal. CHEST: Air entry present and equal bilaterally. No added sounds. CARDIOVASCULAR: S1, S2 normal. No murmur. No gallop. ABDOMEN: Soft, nontender. No hepatosplenomegaly. EXTREMITIES: No edema. TOP TAPER MACHINE: Alert and oriented x3. No focal sensorimotor deficit. LABORATORY DATA: White count 7.5, hemoglobin 11.4, hematocrit 34.6, platelet count 674. Sodium 138, potassium 4, BUN 26, creatinine 1.5, bilirubin 1.6. PT 28, PTT 40, INR 2.4. ASSESSMENT: 1. Right subdural hematoma. 2. Hypercoagulable state secondary to Coumadin. 3. Atrial fibrillation. 4. 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 5. Possible platelet function defect. 6. Anemia. PLAN: He will be admitted to the ICU. One unit of FFP, vitamin K 10 mg subcutaneous to be given. Neurosurgery consult requested. Not a candidate for t-PA. Cardiac medication to be continued. Digoxin 0.125 mg daily, Lasix 40 mg daily, Coumadin on hold. We will reverse the Coumadin. Metoprolol 50 mg p.o. b.i.d. Protonix 40 mg daily, Flomax 0.4 mg daily. Thrombocytosis. Review of record showed he has thrombocytosis in 2016, progressively increasing. He might have a myeloproliferative disorder. Elevated platelet count, might also be a result of platelet function defect Need further workup, which can be done as an outpatient once discharged from the hospital. . Neuro, currently stable. Andreia Carroll MD [facility]
[2017-09-12] MEDS: Pantoprazole 40 mg EC Tab PO SCH (05:49)
[2017-09-12] MEDS: Sodium Chloride 0.9% 1,000 ML IV SCH (05:50)
[2017-09-12 06:16] LABS: BASO # 0.04 K/mm3 (0.0-2.0); BASO % 0.5 % (0.0-3.0); EOS # 0.1 (0.0-0.7); EOS % 1.8 % (1.5-5.0); GRAN # 5.66 (1.4-6.5); GRAN % 74.8 % (50.0-68.0); HEMOGLOBIN 11.9 g/dL (14.0-18.0); LYMPH # 1.1 (1.2-3.4); LYMPH % 14.4 % (22.0-35.0); MEAN CELL VOLUME 90.7 fl (80.0-105.0); MEAN CORPUSCULAR HEMOGLOBIN 28.4 pg (25.0-35.0); MEAN CORPUSCULAR HGB CONC 31.3 g/dl (31.0-37.0); MEAN PLATELET VOLUME 8.3 fl (7.0-11.0); MONO # 0.6 (0.1-0.6); MONO % 8.5 % (1.0-6.0); RBC 4.19 10^6/uL (3.5-6.1); RED CELL DISTRIBUTION WIDTH 16.1 % (11.5-14.5); WHITE BLOOD COUNT 7.6 10^3/ul (4.5-11.0)
[2017-09-12 06:38] LABS: PROTHROMBIN TIME 14.3 SECONDS (9.4-12.5)
[2017-09-12 06:39] LABS: INR 1.24 (0.93-1.08)
[2017-09-12 07:08] LABS: ALB/GLOB RATIO 1.2 (1.1-1.8); CALCIUM 10.2 mg/dL (8.4-10.5)
[2017-09-12] MEDS: Insulin Reg-LOW-Coverage SC SCH ×4 (07:52→22:45)
--- NOTE | 2017-09-12 08:17 | CP.PCM.PN ---
Subjective - Date & Time of Evaluation Date of Evaluation: 09/12/17 Time of Evaluation: 07:00 - Subjective Subjective: Stable in CCU. No CP or SOB. V/S noted. AF. PE: Lungs: clear Cor.: irreg S1S2 Abd.: soft Ext.: no edema Neuro.: alert I/O= 3885/2430 recorded Labs noted: INR = 1.24, Pl. Ct.= 648,000, Cr. = 1.7, etc. Objective - Vital Signs/Intake and Output Vital Signs (last 24 hours): Temp Pulse Resp BP Pulse Ox 98.1 F 92 H 20 106/67 98 09/12/17 04:00 09/12/17 06:00 09/12/17 06:00 09/12/17 06:00 09/12/17 06:00 Intake and Output: 09/12/17 09/12/17 06:59 18:59 Intake Total 1805 Output Total 700 Balance 1105 - Medications Medications: Current Medications Digoxin (Digoxin) 0.125 mg PO 1400 [facility] Last Admin: 09/11/17 14:50 Dose: 0.125 mg Furosemide (Lasix) 40 mg PO DAILY [facility] Last Admin: 09/11/17 09:23 Dose: 40 mg Insulin Human Regular (Humulin R Low) 0 units SC [facility] PRN Reason: Protocol Last Admin: 09/12/17 07:52 Dose: 2 units Insulin Lispro Protam/Lispro Human (Humalog Mix 75/25) 15 units SC [facility] Metoprolol Tartrate (Lopressor) 50 mg PO BID [facility] Last Admin: 09/11/17 17:35 Dose: Not Given Non-Formulary Medication (Alfuzosin Hcl [Uroxatral]) 10 mg PO DAILY [facility] Non-Formulary Medication (Doxazosin Mesylate [Cardura Xl]) 2 mg PO DAILY [facility] Non-Formulary Medication (Dutasteride [Dutasteride]) 0.5 mg PO DAILY [facility] Non-Formulary Medication (Paricalcitol [Zemplar]) 1 mcg PO DAILY [facility] Oxybutynin Chloride (Ditropan Tab) 5 mg PO Q8 [facility] Last Admin: 09/12/17 05:49 Dose: 5 mg Pantoprazole Sodium (Protonix Ec Tab) 40 mg PO 0600 [facility] Last Admin: 09/12/17 05:49 Dose: 40 mg Phytonadione (Vitamin K Inj) 10 mg SC DAILY [facility] Last Admin: 09/11/17 11:09 Dose: 10 mg Pregabalin (Lyrica) 75 mg PO DAILY [facility] Last Admin: 09/11/17 09:23 Dose: 75 mg Tamsulosin HCl (Flomax) 0.4 mg PO DAILY [facility] Last Admin: 09/11/17 09:23 Dose: 0.4 mg Tramadol HCl (Ultram) 50 mg PO BID PRN PRN Reason: Pain, moderate (4-7) - Labs Labs: 09/12/17 05:16 09/12/17 05:16 PT 14.3 SECONDS (9.4-12.5) H 09/12/17 05:16 INR 1.24 (0.93-1.08) H 09/12/17 05:16 APTT 40.0 Seconds (25.1-36.5) H 09/10/17 19:30 Assessment and Plan - Assessment and Plan (Free Text) Assessment: Weak left side SDH, right brain, with midline shift AF on warfarin, therapeutic level Thrombocytosis/Platelet dysfunction Anemia Dementia, mild HBP Diabetes CKD DJD BPH Cataracts/Glaucoma COPD/Former Smoker Left TKR Plan: As per Neuro., Neurosurgery, Dr. Carroll, Intensivists Continue Dig. and metoprolol for rate control No A/C Hold Lasix today Echocardiogram, bedside Monitor: Neuro. signs, sats., INR's, labs, etc Mild increased cardiac risk for planned evacuation of SDH.
--- NOTE | 2017-09-12 08:24 | CON ---
DATE: 09/11/2017 HISTORY OF PRESENT ILLNESS: This is an 82-year-old gentleman with a host of medical problems, who states that coincidentally he was at [facility] 2 days ago having a lumbar MRI. They went home, he felt weak and dizzy the following morning, noticed weakness and difficulty using his left hand. Ultimately, he was seen in the [facility] ER where a CT documented a right-sided subdural hematoma. Interviewing him today, he really has minimal complaints. He states that the left hand situation is markedly improved and at the present time he is denying other neurological complaints. PAST MEDICAL HISTORY: Rather extensive, cardiac disease, insulin-dependent diabetes mellitus. He is on multiple medication, the most salient which he was on Coumadin. Rest of his social history and allergies are actually reviewed in the chart. PHYSICAL EXAMINATION: GENERAL: He is sitting up in the chair. He has a Steve coma score of 15. He is ____ awake and alert. There is a little bit of a language barrier, but he certainly seems oriented and he briskly follows all commands. HEENT: EOMs are full. Face is symmetric. He has a little bit of a left-sided drift, but he does have 5/5 strength throughout. EXTREMITIES: Of note is the left lower extremity cannot be tested adequately as he had recent knee surgery, but he seems to have good strength and sensation. LABORATORY DATA: CT of the brain documents an acute hemorrhage into a chronic subdural hematoma overlying most of the right convexity. There is a minimal to moderate amount of mass effect, no midline shift. His INR on admission was 2.4. IMPRESSION AND PLAN: This subdural is of the size and configuration that does warrant evacuation. I related to the patient, I explained to him the risk of further hemorrhaging. Additionally without evacuation, I do not see how the patient can be restarted on anticoagulation; this would be an indefinite situation. Therefore, I would recommend once we correct his INR, a craniotomy and evacuation of the subdural. I explained it to the patient. We discussed potential risks, complications and recovery time. I answered all questions. He indicated he is interested in proceeding. The patient received 2 units of fresh frozen plasma. I have ordered some additional vitamin K. After tomorrow, we will order another PT/INR, and followup CT with the probable plan to go ahead with surgery in about 48 hours. Ángel Diaz MD
--- NOTE | 2017-09-12 08:32 | PN ---
DATE: 09/12/2017 SUBJECTIVE: The patient has no complaints of any chest pain. No shortness of breath. He is sitting in a chair comfortable. No pain. No headache. PHYSICAL EXAMINATION: VITAL SIGNS: Temperature 98.1, pulse is 92, blood pressure is 106/67, respirations 20. GENERAL: The patient is lying in bed, flat, comfortable. HEENT: No oral lesion. Anicteric sclerae. Moist mucosa. NECK: No JVD, adenopathy, or thyromegaly. CARDIOVASCULAR: S1 and S2, regular. No murmurs, rubs, or gallops. LUNGS: Clear to auscultation bilaterally. No wheeze, rales, or rhonchi. ABDOMEN: Bowel sounds are positive, soft, nontender and nondistended. EXTREMITIES: No cyanosis, clubbing or edema. LABORATORY DATA: White count 7.6, hemoglobin 11.9. Creatinine is 1.7. ASSESSMENT: 1. Right-sided subdural. 2. Diabetes type 2. 3. Hypertension. 4. Benign prostatic hypertrophy. 5. Atrial fibrillation. 6. Chronic kidney stage 3. 7. Thrombocytosis. PLAN: The patient is currently admitted to the ICU. The CAT scan that was done shows that he has an acute right subdural hematoma with considerable edema and mass effect. Currently, the patient looks comfortable. Has no complaint of any headaches or dizziness. The patient is on digoxin for his atrial fibrillation. He is on Flomax for his BPH. He is going to continue Lasix daily. He is on Lyrica. He is on IV fluids. The patient is on a liquid diet. I will discontinue the patient's IV fluids at this point. The patient was given vitamin K for his INR being elevated secondary to being on Coumadin. The patient is being followed by multiple consultants. I appreciate their input. We will wait for the input from them. The patient has an MRI that has been ordered as well and a CTA that is pending. Harvey Echols MD
--- NOTE | 2017-09-12 09:15 | PN ---
DATE: 09/11/2017 SUBJECTIVE: The patient is sitting in chair, awake and alert, waiting for breakfast. He states that he continues to have weakness in his left upper extremity, but he moves it much better and has much more strength than earlier. No complaints of chest pain, abdominal pain. No fever, chills, nausea or vomiting. No shortness of breath, cough or wheezing. The patient does state that he had knee replacement several years ago and that continues to be a problem with pain. PHYSICAL EXAMINATION VITAL SIGNS: Note that his temperature is 98.2, his pulse is 88, respirations are 24 and BP is 112/78, O2 saturation on room air is 98%. HEENT: Head is atraumatic, normocephalic. Eyes reactive to light. Ears, nose and throat seem to be within normal limits. NECK: Supple. No JVD. No thyroid enlargement, no lymph nodes. HEART: Has regular rate and rhythm. Normal S1, S2. LUNGS: Reveal good breath sounds bilaterally. ABDOMEN: Soft. Decreased bowel sounds. GENITALIA AND RECTAL: Deferred. MUSCULOSKELETAL: No joint deformities. EXTREMITIES: Reveal trace lower extremity edema. NEUROLOGIC: The patient has the weakness in the left upper extremity. LABORATORY DATA: As far as his laboratories are concerned, his white count is 7.5, hemoglobin is 11.4, hematocrit 34.6 with platelets of 674,000. His PT is 22.8, INR is 1.96. The patient's sodium is 138, potassium 4, chloride 102, CO2 of 26 with a BUN of 26, creatinine of 1.5 and a glucose of 191. 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 The patient is on anticoagulation for atrial fibrillation and also has a history of hypertension, diabetes, congestive heart failure, gastroesophageal reflux disease and chronic kidney disease. Note that the patient had the acute on chronic subdural hematoma with left-sided upper extremity weakness and a slight midline shift noted on the CT of the head. PLAN: We will follow with Neurology and Neurosurgery. The patient is continuing with his digoxin as well as his Lasix and his blood pressure medications. He is getting Protonix and tramadol for the knee pain. We will continue to follow closely and treat aggressively along with the other consultants and the primary care doctor. Filemon Johnson MD [facility] # [id number]
[2017-09-12] MEDS: Phytonadione 10 mg/ml Inj (Adult) SC SCH (09:55)
--- NOTE | 2017-09-12 09:58 | CT ---
PROCEDURE: CT HEAD WITHOUT CONTRAST. HISTORY: subdural hemorrhage COMPARISON: None available. TECHNIQUE: Axial computed tomography images were obtained through the head/brain without intravenous contrast. Radiation dose: Total exam DLP = 934 mGy-cm. This CT exam was performed using one or more of the following dose reduction techniques: Automated exposure control, adjustment of the mA and/or kV according to patient size, and/or use of iterative reconstruction technique. FINDINGS: HEMORRHAGE: There is a large right convexity subdural hematoma with chronic and acute elements. There is 3 mm midline shift to the left. The findings are not significantly changed. BRAIN: No mass effect or edema. No atrophy or chronic microvascular ischemic changes. VENTRICLES: Unremarkable. No hydrocephalus. CALVARIUM: Unremarkable. PARANASAL SINUSES: Unremarkable as visualized. No significant inflammatory changes. MASTOID AIR CELLS: Unremarkable as visualized. No inflammatory changes. OTHER FINDINGS: None. IMPRESSION: Stable appearance of large right-sided subdural hematoma
--- NOTE | 2017-09-12 10:17 | CP.CCUPN ---
<Efra Greenwood - Last Filed: 09/12/17 10:25> CCU Subjective - Physician Review Subjective (Free Text): Patient seen and examined at bedside. Patient admits to improvement of neurological symptoms, with almost complete resolution. Denies chest pain, shortness of breath, nausea, vomiting, diarrhea, fever, chills, numbness, tingling, changes in vision. CCU Objective - Vital Signs / Intake & Output Vital Signs (Last 4 hours): Vital Signs Temp Pulse Resp BP Pulse Ox 09/12/17 08:00 98.5 F 100 H 26 H 137/54 L 98 Intake and Output (Last 8hrs): Intake & Output 09/11/17 09/12/17 09/12/17 22:59 06:59 14:59 Intake Total 2080 1805 Output Total 1730 700 Balance 350 1105 Intake: IV 900 750 0.9 900 750 Oral 1180 300 Blood Product 755 Output: Urine 1730 700 Urine, Voided 1730 700 Other: # Voids Urine, Voided 3 # Bowel Movements 0 - Physical Exam Head: Positive for: Atraumatic, Normocephalic Pupils: Positive for: PERRL Extroacular Muscles: Positive for: EOMI Conjunctiva: Positive for: Normal Mouth: Positive for: Moist Mucous Membranes Neck: Positive for: Normal Range of Motion Respiratory/Chest: Positive for: Clear to Auscultation, Good Air Exchange. Negative for: Respiratory Distress, Accessory Muscle Use Cardiovascular: Positive for: Regular Rate and Rhythm, Normal S1, S2. Negative for: Murmurs Abdomen: Positive for: Normal Bowel Sounds. Negative for: Tenderness, Distention, Peritoneal Signs Back: Positive for: GCS, CN, SP Upper Extremity: Negative for: Cyanosis, Edema, Tenderness, Swelling Lower Extremity: Negative for: Edema, CALF TENDERNESS, Tenderness, Swelling Neurological: Positive for: CN II-XII Intact, Motor Func Grossly Intact, Gait Normal Skin: Positive for: Warm, Dry, Normal Color. Negative for: Rashes Lymphatic: Positive for: OX3, NI, NC Psychiatric: Positive for: Alert, Oriented x 3, Normal Insight, Normal Concentration - Medications Active Medications: Active Medications Generic Name Dose Route Start Last Admin Trade Name Freq PRN Reason Stop Dose Admin Digoxin 0.125 mg 09/11/17 14:00 09/11/17 14:50 Digoxin PO 0.125 mg 1400 [facility] Administration Furosemide 40 mg 09/11/17 10:00 09/11/17 09:23 Lasix PO 40 mg DAILY [facility] Administration Insulin Human Regular 0 units 09/11/17 07:30 09/12/17 07:52 Humulin R Low SC 2 units [facility] Administration Protocol Insulin Lispro Protam/Lispro Human 15 units 09/11/17 07:30 Humalog Mix 75/25 SC [facility] Metoprolol Tartrate 50 mg 09/11/17 10:00 09/11/17 17:35 Lopressor PO Not Given BID [facility] Non-Formulary Medication 10 mg 09/11/17 10:00 Alfuzosin Hcl [Uroxatral] PO DAILY [facility] Non-Formulary Medication 2 mg 09/11/17 10:00 Doxazosin Mesylate [Cardura Xl] PO DAILY [facility] Non-Formulary Medication 0.5 mg 09/11/17 10:00 Dutasteride [Dutasteride] PO DAILY [facility] Non-Formulary Medication 1 mcg 09/12/17 09:39 Paricalcitol [Zemplar] PO DAILY [facility] Oxybutynin Chloride 5 mg 09/11/17 06:00 09/12/17 05:49 Ditropan Tab PO 5 mg Q8 [facility] Administration Pantoprazole Sodium 40 mg 09/11/17 06:00 09/12/17 05:49 Protonix Ec Tab PO 40 mg 0600 [facility] Administration Phytonadione 10 mg 09/11/17 10:15 09/12/17 09:55 Vitamin K Inj SC 10 mg DAILY [facility] Administration Pregabalin 75 mg 09/11/17 10:00 09/12/17 09:55 Lyrica PO 75 mg DAILY [facility] Administration Tamsulosin HCl 0.4 mg 09/11/17 10:00 09/12/17 09:55 Flomax PO 0.4 mg DAILY [facility] Administration Tramadol HCl 50 mg 09/11/17 08:04 Ultram PO BID PRN Pain, moderate (4-7) - Patient Studies Lab Studies: Lab Studies 09/12/17 09/12/17 09/12/17 Range/Units 07:19 05:16 05:16 WBC (4.5-11.0) 10^3/ul RBC (3.5-6.1) 10^6/uL Hgb (14.0-18.0) g/dL Hct (42.0-52.0) % MCV (80.0-105.0) fl MCH (25.0-35.0) pg MCHC (31.0-37.0) g/dl RDW (11.5-14.5) % Plt Count (120.0-450.0) 10^3/uL MPV (7.0-11.0) fl Gran % (50.0-68.0) % Lymph % (Auto) (22.0-35.0) % Appling % (Auto) (1.0-6.0) % Eos % (Auto) (1.5-5.0) % Baso % (Auto) (0.0-3.0) % Gran # (1.4-6.5) Lymph # (Auto) (1.2-3.4) Appling # (Auto) (0.1-0.6) Eos # (Auto) (0.0-0.7) Baso # (Auto) (0.0-2.0) K/mm3 PT 14.3 H (9.4-12.5) SECONDS INR 1.24 H (0.93-1.08) Sodium 140 (132-148) mmol/L Potassium 4.8 (3.6-5.0) mmol/L Chloride 102 (98-107) mmol/L Carbon Dioxide 30 (21-33) mmol/L Anion Gap 13 (10-20) BUN 20 (7-21) mg/dL Creatinine 1.7 H (0.8-1.5) mg/dl Est GFR ( Amer) 47 Est GFR (Non-Af Amer) 39 POC Glucose (mg/dL) 202 H (65-110) mg/dL Random Glucose 237 H (70-110) mg/dL Hemoglobin A1c (4.2-6.5) % Calcium 10.2 (8.4-10.5) mg/dL Total Bilirubin 1.1 (0.2-1.3) mg/dL AST 38 (17-59) U/L ALT 35 (7-56) U/L Alkaline Phosphatase 99 (38-126) U/L Total Protein 7.3 (5.8-8.3) g/dL Albumin 4.0 (3.0-4.8) g/dL Globulin 3.3 gm/dL Albumin/Globulin Ratio 1.2 (1.1-1.8) 09/12/17 09/11/17 09/11/17 Range/Units 05:16 21:36 16:06 WBC 7.6 (4.5-11.0) 10^3/ul RBC 4.19 (3.5-6.1) 10^6/uL Hgb 11.9 L (14.0-18.0) g/dL Hct 38.0 L (42.0-52.0) % MCV 90.7 (80.0-105.0) fl MCH 28.4 (25.0-35.0) pg MCHC 31.3 (31.0-37.0) g/dl RDW 16.1 H (11.5-14.5) % Plt Count 648 H (120.0-450.0) 10^3/uL MPV 8.3 (7.0-11.0) fl Gran % 74.8 H (50.0-68.0) % Lymph % (Auto) 14.4 L (22.0-35.0) % Appling % (Auto) 8.5 H (1.0-6.0) % Eos % (Auto) 1.8 (1.5-5.0) % Baso % (Auto) 0.5 (0.0-3.0) % Gran # 5.66 (1.4-6.5) Lymph # (Auto) 1.1 L (1.2-3.4) Appling # (Auto) 0.6 (0.1-0.6) Eos # (Auto) 0.1 (0.0-0.7) Baso # (Auto) 0.04 (0.0-2.0) K/mm3 PT (9.4-12.5) SECONDS INR (0.93-1.08) Sodium (132-148) mmol/L Potassium (3.6-5.0) mmol/L Chloride (98-107) mmol/L Carbon Dioxide (21-33) mmol/L Anion Gap (10-20) BUN (7-21) mg/dL Creatinine (0.8-1.5) mg/dl Est GFR ( Amer) Est GFR (Non-Af Amer) POC Glucose (mg/dL) 173 H 201 H (65-110) mg/dL Random Glucose (70-110) mg/dL Hemoglobin A1c (4.2-6.5) % Calcium (8.4-10.5) mg/dL Total Bilirubin (0.2-1.3) mg/dL AST (17-59) U/L ALT (7-56) U/L Alkaline Phosphatase (38-126) U/L Total Protein (5.8-8.3) g/dL Albumin (3.0-4.8) g/dL Globulin gm/dL Albumin/Globulin Ratio (1.1-1.8) 09/11/17 09/11/17 Range/Units 10:18 05:00 WBC (4.5-11.0) 10^3/ul RBC (3.5-6.1) 10^6/uL Hgb (14.0-18.0) g/dL Hct (42.0-52.0) % MCV (80.0-105.0) fl MCH (25.0-35.0) pg MCHC (31.0-37.0) g/dl RDW (11.5-14.5) % Plt Count (120.0-450.0) 10^3/uL MPV (7.0-11.0) fl Gran % (50.0-68.0) % Lymph % (Auto) (22.0-35.0) % Appling % (Auto) (1.0-6.0) % Eos % (Auto) (1.5-5.0) % Baso % (Auto) (0.0-3.0) % Gran # (1.4-6.5) Lymph # (Auto) (1.2-3.4) Appling # (Auto) (0.1-0.6) Eos # (Auto) (0.0-0.7) Baso # (Auto) (0.0-2.0) K/mm3 PT (9.4-12.5) SECONDS INR (0.93-1.08) Sodium (132-148) mmol/L Potassium (3.6-5.0) mmol/L Chloride (98-107) mmol/L Carbon Dioxide (21-33) mmol/L Anion Gap (10-20) BUN (7-21) mg/dL Creatinine (0.8-1.5) mg/dl Est GFR ( Amer) Est GFR (Non-Af Amer) POC Glucose (mg/dL) 216 H (65-110) mg/dL Random Glucose (70-110) mg/dL Hemoglobin A1c 10.2 H (4.2-6.5) % Calcium (8.4-10.5) mg/dL Total Bilirubin (0.2-1.3) mg/dL AST (17-59) U/L ALT (7-56) U/L Alkaline Phosphatase (38-126) U/L Total Protein (5.8-8.3) g/dL Albumin (3.0-4.8) g/dL Globulin gm/dL Albumin/Globulin Ratio (1.1-1.8) Laboratory Results - last 24 hr 09/11/17 09/11/17 09/11/17 05:00 10:18 16:06 WBC RBC Hgb Hct MCV MCH MCHC RDW Plt Count MPV Gran % Lymph % (Auto) Appling % (Auto) Eos % (Auto) Baso % (Auto) Gran # Lymph # (Auto) Appling # (Auto) Eos # (Auto) Baso # (Auto) PT INR Sodium Potassium Chloride Carbon Dioxide Anion Gap BUN Creatinine Est GFR ( Amer) Est GFR (Non-Af Amer) POC Glucose (mg/dL) 216 H 201 H Random Glucose Hemoglobin A1c 10.2 H Calcium Total Bilirubin AST ALT Alkaline Phosphatase Total Protein Albumin Globulin Albumin/Globulin Ratio 09/11/17 09/12/17 09/12/17 21:36 05:16 05:16 WBC 7.6 RBC 4.19 Hgb 11.9 L Hct 38.0 L MCV 90.7 MCH 28.4 MCHC 31.3 RDW 16.1 H Plt Count 648 H MPV 8.3 Gran % 74.8 H Lymph % (Auto) 14.4 L Appling % (Auto) 8.5 H Eos % (Auto) 1.8 Baso % (Auto) 0.5 Gran # 5.66 Lymph # (Auto) 1.1 L Appling # (Auto) 0.6 Eos # (Auto) 0.1 Baso # (Auto) 0.04 PT 14.3 H INR 1.24 H Sodium Potassium Chloride Carbon Dioxide Anion Gap BUN Creatinine Est GFR ( Amer) Est GFR (Non-Af Amer) POC Glucose (mg/dL) 173 H Random Glucose Hemoglobin A1c Calcium Total Bilirubin AST ALT Alkaline Phosphatase Total Protein Albumin Globulin Albumin/Globulin Ratio 09/12/17 09/12/17 05:16 07:19 WBC RBC Hgb Hct MCV MCH MCHC RDW Plt Count MPV Gran % Lymph % (Auto) Appling % (Auto) Eos % (Auto) Baso % (Auto) Gran # Lymph # (Auto) Appling # (Auto) Eos # (Auto) Baso # (Auto) PT INR Sodium 140 Potassium 4.8 Chloride 102 Carbon Dioxide 30 Anion Gap 13 BUN 20 Creatinine 1.7 H Est GFR ( Amer) 47 Est GFR (Non-Af Amer) 39 POC Glucose (mg/dL) 202 H Random Glucose 237 H Hemoglobin A1c Calcium 10.2 Total Bilirubin 1.1 AST 38 ALT 35 Alkaline Phosphatase 99 Total Protein 7.3 Albumin 4.0 Globulin 3.3 Albumin/Globulin Ratio 1.2 Fingerstick Blood Sugar Results: 202 Critical Care Progress Note - Nutrition Nutrition: Nutrition Category Date Time Status Liquid Diet [DIET] Diets 09/11/17 Breakfast Ordered Assessment/Plan - Assessment and Plan (Free Text) Plan: 82 year old Male with past medical history of falls, BPH, GERD, CHF, IDDM, HTN, CKD, A.fib on Coumadin presenting for acute on chronic subdural hematoma. Patient planned for evacuation of hematoma once INR normalizes. Repeat head CT shows stable subdural hematoma. Will continue to monitor closely. Neuro: Acute on chronic subdural hematoma, stable No neurological deficits Subdural hematoma evacuation once INR normal, as per neurosurgery Neuro checks q1h Hold anticoagulants Fall precaution Aspiration precaution Liquid diet CV: Hx of a.fib on Coumadin as well as HTN and CHF Anticoagulation held INR 1.24 Vitamin K daily Hemodynamically stable INR: 2.4 Pulm: Maintain o2 sat greater than 90% Aspiration precaution HOB elevated 45 degrees GI: Liquid diet Protonix Nephro: Continue home meds Monitor I's and O's Maintain euvolemia Heme: Anticoagulation held Recheck INR in AM Endo: ISS Maintain euglycemia Timo, PGY-2 <Magdy Daley - Last Filed: 09/12/17 11:24> CCU Objective - Vital Signs / Intake & Output Vital Signs (Last 4 hours): Vital Signs Temp Pulse Resp BP Pulse Ox 09/12/17 11:12 87 128/80 09/12/17 08:00 98.5 F 100 H 26 H 137/54 L 98 Intake and Output (Last 8hrs): Intake & Output 09/11/17 09/12/17 09/12/17 22:59 06:59 14:59 Intake Total 2080 1805 Output Total 1730 700 Balance 350 1105 Intake: IV 900 750 0.9 900 750 Oral 1180 300 Blood Product 755 Output: Urine 1730 700 Urine, Voided 1730 700 Other: # Voids Urine, Voided 3 # Bowel Movements 0 - Medications Active Medications: Active Medications Generic Name Dose Route Start Last Admin Trade Name Freq PRN Reason Stop Dose Admin Digoxin 0.125 mg 09/11/17 14:00 09/11/17 14:50 Digoxin PO 0.125 mg 1400 [facility] Administration Furosemide 40 mg 09/11/17 10:00 09/11/17 09:23 Lasix PO 40 mg DAILY [facility] Administration Insulin Human Regular 0 units 09/11/17 07:30 09/12/17 07:52 Humulin R Low SC 2 units [facility] Administration Protocol Insulin Lispro Protam/Lispro Human 15 units 09/11/17 07:30 Humalog Mix 75/25 SC [facility] Metoprolol Tartrate 50 mg 09/11/17 10:00 09/12/17 11:12 Lopressor PO 50 mg BID [facility] Administration Non-Formulary Medication 10 mg 09/11/17 10:00 Alfuzosin Hcl [Uroxatral] PO DAILY [facility] Non-Formulary Medication 2 mg 09/11/17 10:00 Doxazosin Mesylate [Cardura Xl] PO DAILY [facility] Non-Formulary Medication 0.5 mg 09/11/17 10:00 Dutasteride [Dutasteride] PO DAILY [facility] Non-Formulary Medication 1 mcg 09/12/17 09:39 Paricalcitol [Zemplar] PO DAILY [facility] Oxybutynin Chloride 5 mg 09/11/17 06:00 09/12/17 05:49 Ditropan Tab PO 5 mg Q8 [facility] Administration Pantoprazole Sodium 40 mg 09/11/17 06:00 09/12/17 05:49 Protonix Ec Tab PO 40 mg 0600 [facility] Administration Phytonadione 10 mg 09/11/17 10:15 09/12/17 09:55 Vitamin K Inj SC 10 mg DAILY [facility] Administration Pregabalin 75 mg 09/11/17 10:00 09/12/17 09:55 Lyrica PO 75 mg DAILY [facility] Administration Tamsulosin HCl 0.4 mg 09/11/17 10:00 09/12/17 09:55 Flomax PO 0.4 mg DAILY [facility] Administration Tramadol HCl 50 mg 09/11/17 08:04 Ultram PO BID PRN Pain, moderate (4-7) - Patient Studies Lab Studies: Lab Studies 09/12/17 09/12/17 09/12/17 Range/Units 07:19 05:16 05:16 WBC (4.5-11.0) 10^3/ul RBC (3.5-6.1) 10^6/uL Hgb (14.0-18.0) g/dL Hct (42.0-52.0) % MCV (80.0-105.0) fl MCH (25.0-35.0) pg MCHC (31.0-37.0) g/dl RDW (11.5-14.5) % Plt Count (120.0-450.0) 10^3/uL MPV (7.0-11.0) fl Gran % (50.0-68.0) % Lymph % (Auto) (22.0-35.0) % Appling % (Auto) (1.0-6.0) % Eos % (Auto) (1.5-5.0) % Baso % (Auto) (0.0-3.0) % Gran # (1.4-6.5) Lymph # (Auto) (1.2-3.4) Appling # (Auto) (0.1-0.6) Eos # (Auto) (0.0-0.7) Baso # (Auto) (0.0-2.0) K/mm3 PT 14.3 H (9.4-12.5) SECONDS INR 1.24 H (0.93-1.08) Sodium 140 (132-148) mmol/L Potassium 4.8 (3.6-5.0) mmol/L Chloride 102 (98-107) mmol/L Carbon Dioxide 30 (21-33) mmol/L Anion Gap 13 (10-20) BUN 20 (7-21) mg/dL Creatinine 1.7 H (0.8-1.5) mg/dl Est GFR ( Amer) 47 Est GFR (Non-Af Amer) 39 POC Glucose (mg/dL) 202 H (65-110) mg/dL Random Glucose 237 H (70-110) mg/dL Hemoglobin A1c (4.2-6.5) % Calcium 10.2 (8.4-10.5) mg/dL Total Bilirubin 1.1 (0.2-1.3) mg/dL AST 38 (17-59) U/L ALT 35 (7-56) U/L Alkaline Phosphatase 99 (38-126) U/L Total Protein 7.3 (5.8-8.3) g/dL Albumin 4.0 (3.0-4.8) g/dL Globulin 3.3 gm/dL Albumin/Globulin Ratio 1.2 (1.1-1.8) 09/12/17 09/11/17 09/11/17 Range/Units 05:16 21:36 16:06 WBC 7.6 (4.5-11.0) 10^3/ul RBC 4.19 (3.5-6.1) 10^6/uL Hgb 11.9 L (14.0-18.0) g/dL Hct 38.0 L (42.0-52.0) % MCV 90.7 (80.0-105.0) fl MCH 28.4 (25.0-35.0) pg MCHC 31.3 (31.0-37.0) g/dl RDW 16.1 H (11.5-14.5) % Plt Count 648 H (120.0-450.0) 10^3/uL MPV 8.3 (7.0-11.0) fl Gran % 74.8 H (50.0-68.0) % Lymph % (Auto) 14.4 L (22.0-35.0) % Appling % (Auto) 8.5 H (1.0-6.0) % Eos % (Auto) 1.8 (1.5-5.0) % Baso % (Auto) 0.5 (0.0-3.0) % Gran # 5.66 (1.4-6.5) Lymph # (Auto) 1.1 L (1.2-3.4) Appling # (Auto) 0.6 (0.1-0.6) Eos # (Auto) 0.1 (0.0-0.7) Baso # (Auto) 0.04 (0.0-2.0) K/mm3 PT (9.4-12.5) SECONDS INR (0.93-1.08) Sodium (132-148) mmol/L Potassium (3.6-5.0) mmol/L Chloride (98-107) mmol/L Carbon Dioxide (21-33) mmol/L Anion Gap (10-20) BUN (7-21) mg/dL Creatinine (0.8-1.5) mg/dl Est GFR ( Amer) Est GFR (Non-Af Amer) POC Glucose (mg/dL) 173 H 201 H (65-110) mg/dL Random Glucose (70-110) mg/dL Hemoglobin A1c (4.2-6.5) % Calcium (8.4-10.5) mg/dL Total Bilirubin (0.2-1.3) mg/dL AST (17-59) U/L ALT (7-56) U/L Alkaline Phosphatase (38-126) U/L Total Protein (5.8-8.3) g/dL Albumin (3.0-4.8) g/dL Globulin gm/dL Albumin/Globulin Ratio (1.1-1.8) 09/11/17 Range/Units 05:00 WBC (4.5-11.0) 10^3/ul RBC (3.5-6.1) 10^6/uL Hgb (14.0-18.0) g/dL Hct (42.0-52.0) % MCV (80.0-105.0) fl MCH (25.0-35.0) pg MCHC (31.0-37.0) g/dl RDW (11.5-14.5) % Plt Count (120.0-450.0) 10^3/uL MPV (7.0-11.0) fl Gran % (50.0-68.0) % Lymph % (Auto) (22.0-35.0) % Appling % (Auto) (1.0-6.0) % Eos % (Auto) (1.5-5.0) % Baso % (Auto) (0.0-3.0) % Gran # (1.4-6.5) Lymph # (Auto) (1.2-3.4) Appling # (Auto) (0.1-0.6) Eos # (Auto) (0.0-0.7) Baso # (Auto) (0.0-2.0) K/mm3 PT (9.4-12.5) SECONDS INR (0.93-1.08) Sodium (132-148) mmol/L Potassium (3.6-5.0) mmol/L Chloride (98-107) mmol/L Carbon Dioxide (21-33) mmol/L Anion Gap (10-20) BUN (7-21) mg/dL Creatinine (0.8-1.5) mg/dl Est GFR ( Amer) Est GFR (Non-Af Amer) POC Glucose (mg/dL) (65-110) mg/dL Random Glucose (70-110) mg/dL Hemoglobin A1c 10.2 H (4.2-6.5) % Calcium (8.4-10.5) mg/dL Total Bilirubin (0.2-1.3) mg/dL AST (17-59) U/L ALT (7-56) U/L Alkaline Phosphatase (38-126) U/L Total Protein (5.8-8.3) g/dL Albumin (3.0-4.8) g/dL Globulin gm/dL Albumin/Globulin Ratio (1.1-1.8) Laboratory Results - last 24 hr 09/11/17 09/11/17 09/11/17 05:00 16:06 21:36 WBC RBC Hgb Hct MCV MCH MCHC RDW Plt Count MPV Gran % Lymph % (Auto) Appling % (Auto) Eos % (Auto) Baso % (Auto) Gran # Lymph # (Auto) Appling # (Auto) Eos # (Auto) Baso # (Auto) PT INR Sodium Potassium Chloride Carbon Dioxide Anion Gap BUN Creatinine Est GFR ( Amer) Est GFR (Non-Af Amer) POC Glucose (mg/dL) 201 H 173 H Random Glucose Hemoglobin A1c 10.2 H Calcium Total Bilirubin AST ALT Alkaline Phosphatase Total Protein Albumin Globulin Albumin/Globulin Ratio 09/12/17 09/12/17 09/12/17 05:16 05:16 05:16 WBC 7.6 RBC 4.19 Hgb 11.9 L Hct 38.0 L MCV 90.7 MCH 28.4 MCHC 31.3 RDW 16.1 H Plt Count 648 H MPV 8.3 Gran % 74.8 H Lymph % (Auto) 14.4 L Appling % (Auto) 8.5 H Eos % (Auto) 1.8 Baso % (Auto) 0.5 Gran # 5.66 Lymph # (Auto) 1.1 L Appling # (Auto) 0.6 Eos # (Auto) 0.1 Baso # (Auto) 0.04 PT 14.3 H INR 1.24 H Sodium 140 Potassium 4.8 Chloride 102 Carbon Dioxide 30 Anion Gap 13 BUN 20 Creatinine 1.7 H Est GFR ( Amer) 47 Est GFR (Non-Af Amer) 39 POC Glucose (mg/dL) Random Glucose 237 H Hemoglobin A1c Calcium 10.2 Total Bilirubin 1.1 AST 38 ALT 35 Alkaline Phosphatase 99 Total Protein 7.3 Albumin 4.0 Globulin 3.3 Albumin/Globulin Ratio 1.2 09/12/17 07:19 WBC RBC Hgb Hct MCV MCH MCHC RDW Plt Count MPV Gran % Lymph % (Auto) Appling % (Auto) Eos % (Auto) Baso % (Auto) Gran # Lymph # (Auto) Appling # (Auto) Eos # (Auto) Baso # (Auto) PT INR Sodium Potassium Chloride Carbon Dioxide Anion Gap BUN Creatinine Est GFR ( Amer) Est GFR (Non-Af Amer) POC Glucose (mg/dL) 202 H Random Glucose Hemoglobin A1c Calcium Total Bilirubin AST ALT Alkaline Phosphatase Total Protein Albumin Globulin Albumin/Globulin Ratio Critical Care Progress Note - Nutrition Nutrition: Nutrition Category Date Time Status Liquid Diet [DIET] Diets 09/11/17 Breakfast Ordered Assessment/Plan - Assessment and Plan (Free Text) Plan: Patient seen and examined, on rounds with resident, agree with note with following additions/exceptions: Patient is 82yo male with PMHx falls, BPH, GERD, CHF, IDDM, HTN, CKD, A.fib on Coumadin presenting for acute on chronic subdural hematoma. Currently afebrile, HD stable, comfortable in NAD. INR has normalized, Platelets stable. NSG, and neurology following. Repeat CT head this morning, stable. SDH Afib on A/C HTN CKD IDDM Recommend: - supp o2 as needed - follow up cultures, UCx, BCx, Procal - BP control - FS control - start Lantus 10u QHS (HgbA1C >10) - hold A/C - cont with BB - check AM INR - follow up Neurosurgery, for possible OR tomorrow - follow up neurology - hold ASA - GI ppx - DVT ppx, SCDs - Stable, monitor in MICU
[2017-09-12] MEDS: DOXAZOSIN MESYLATE 2 MG PO SCH (13:06)
[2017-09-12] MEDS: PARICALCITOL 1 MCG PO SCH (13:08)
--- NOTE | 2017-09-12 13:38 | CT ---
PROCEDURE: CT Angiography of the neck with contrast HISTORY: stroke alert COMPARISON: None available. TECHNIQUE: Contiguous axial images of the neck were obtained from the level of the skull-base to the superior mediastinum in the arteriographic phase of enhancement. Coronal and sagittal reformats or also generated. IV contrast dose: 60 cc of Omni 350 Radiation Dose - DLP: 632 mGy-cm This CT exam was performed using one or more of the following dose reduction techniques: Automated exposure control, adjustment of the mA and/or kV according to patient size, and/or use of iterative reconstruction technique. FINDINGS: RIGHT CAROTID ARTERIES: Common Carotid Artery: Normal. Carotid Bifurcation: Normal. Internal Carotid Artery:Normal. External Carotid Artery (proximal branches): Normal. LEFT CAROTID ARTERIES: Common Carotid Artery: Normal. Carotid Bifurcation: Normal. Internal Carotid Artery:Normal. External Carotid Artery (proximal branches): Normal. VERTEBRAL ARTERIES: Right Vertebral Artery: Normal. Left Vertebral Artery: Normal. OTHER FINDINGS: The report concurs with the preliminary [facility] report IMPRESSION: Normal CT Angiography of the neck. CT Angiography of the Brain. HISTORY: stroke alert COMPARISON: None available. TECHNIQUE: CT angiography of the intracranial arteries was performed. Coronal and sagittal maximum intensity projection reformated images were generated. This CT exam was performed using one or more of the following dose reduction techniques: Automated exposure control, adjustment of the mA and/or kV according to patient size, and/or use of iterative reconstruction technique. FINDINGS: INTERNAL CEREBRAL ARTERIES: Unremarkable. The skull base, petrous, cavernous and supraclinoid segments are bilaterally widely patent. ANTERIOR CEREBRAL ARTERIES: Unremarkable. A1 and A2 segments are widely patent. Smaller distal branches unremarkable, as visualized. MIDDLE CEREBRAL ARTERIES: Unremarkable. M1 and M2 segments are widely patent. Perisylvian branches grossly symmetric. POSTERIOR CIRCULATION: Basilar Artery: Unremarkable. Distal Vertebral Arteries: Unremarkable. Posterior Cerebral Arteries: Unremarkable. Posterior Inferior Cerebellar Arteries: Unremarkable. ANEURYSM/ VASCULAR MALFORMATIONS: None. OTHER FINDINGS: As seen on the nonenhanced study there is a mixed density subdural hematoma over the right convexity. IMPRESSION: Unremarkable CT Angiography of the Brain.
--- NOTE | 2017-09-12 14:10 | CP.PCM.PN ---
Subjective - Date & Time of Evaluation Date of Evaluation: 09/12/17 Time of Evaluation: 14:07 - Subjective Subjective: Mr. Chi was seen and examined at the bedside in ICU. He is alert, oriented with episode of forgetfulness. He is able to answer all questions. He denies any headache, dizziness, lightheadedness, blurred vision, nausea, or vomiting. He is able to feed himself with no assistance. He has minimal left sided weakness. CT scan of the head this am showed stable large right-sided hematoma.There was no untoward events overnight. Objective - Vital Signs/Intake and Output Vital Signs (last 24 hours): Temp Pulse Resp BP Pulse Ox 97.9 F 79 22 128/80 96 09/12/17 12:00 09/12/17 12:00 09/12/17 12:00 09/12/17 12:00 09/12/17 12:00 Intake and Output: 09/12/17 09/12/17 06:59 18:59 Intake Total 1805 Output Total 700 Balance 1105 - Medications Medications: Current Medications Digoxin (Digoxin) 0.125 mg PO 1400 [facility] Last Admin: 09/11/17 14:50 Dose: 0.125 mg Furosemide (Lasix) 40 mg PO DAILY [facility] Last Admin: 09/11/17 09:23 Dose: 40 mg Insulin Human Regular (Humulin R Low) 0 units SC [facility] PRN Reason: Protocol Last Admin: 09/12/17 12:11 Dose: 2 units Insulin Lispro Protam/Lispro Human (Humalog Mix 75/25) 15 units SC [facility] Metoprolol Tartrate (Lopressor) 50 mg PO BID [facility] Last Admin: 09/12/17 11:12 Dose: 50 mg Non-Formulary Medication (Alfuzosin Hcl [Uroxatral]) 10 mg PO DAILY [facility] Last Admin: 09/12/17 13:05 Dose: Not Given Non-Formulary Medication (Doxazosin Mesylate [Cardura Xl]) 2 mg PO DAILY [facility] Last Admin: 09/12/17 13:06 Dose: Not Given Non-Formulary Medication (Dutasteride [Dutasteride]) 0.5 mg PO DAILY [facility] Last Admin: 09/12/17 13:07 Dose: Not Given Non-Formulary Medication (Paricalcitol [Zemplar]) 1 mcg PO DAILY [facility] Last Admin: 09/12/17 13:08 Dose: Not Given Oxybutynin Chloride (Ditropan Tab) 5 mg PO Q8 [facility] Last Admin: 09/12/17 05:49 Dose: 5 mg Pantoprazole Sodium (Protonix Ec Tab) 40 mg PO 0600 [facility] Last Admin: 09/12/17 05:49 Dose: 40 mg Phytonadione (Vitamin K Inj) 10 mg SC DAILY [facility] Last Admin: 09/12/17 09:55 Dose: 10 mg Pregabalin (Lyrica) 75 mg PO DAILY [facility] Last Admin: 09/12/17 09:55 Dose: 75 mg Tamsulosin HCl (Flomax) 0.4 mg PO DAILY [facility] Last Admin: 09/12/17 09:55 Dose: 0.4 mg Tramadol HCl (Ultram) 50 mg PO BID PRN PRN Reason: Pain, moderate (4-7) - Labs Labs: 09/12/17 05:16 09/12/17 05:16 PT 14.3 SECONDS (9.4-12.5) H 09/12/17 05:16 INR 1.24 (0.93-1.08) H 09/12/17 05:16 APTT 40.0 Seconds (25.1-36.5) H 09/10/17 19:30 - Constitutional Appears: No Acute Distress - Head Exam Head Exam: NORMAL INSPECTION - Neurological Exam Neurological Exam: Alert, Awake, Oriented x3 Neuro motor strength exam: Left Upper Extremity: 4, Right Upper Extremity: 5, Left Lower Extremity: 4, Right Lower Extremity: 5 Additional comments: No facial droop; motor: left drift, and left 4/5 weaknes noted in the left proximal muscles. Follows commands, Sensory: normal. Assessment and Plan (1) Subdural hemorrhage Assessment & Plan: Case discussed with Dr. Blue, continue all current medical, physical therapies. Recommend repeat CT scan of the head without contrast in am, blood pressure control SBP not > 160 and diastolic not > 110. Status: Acute
[2017-09-12] MEDS: Digoxin 125 mcg (0.125 mg) Tab PO SCH (14:41)
--- NOTE | 2017-09-12 19:20 | CP.CCUPN ---
CCU Subjective - Physician Review Subjective (Free Text): 09/12/17 19:[address] Carroll, pt has abnormal platelet count, thrombocytosis at 600s, since 2016. His platelet is not functional. Order 2 units of platelet on hold for tomorrow surgery. If pt bleeds, don't go by the number, transfuse the platelet at once. I have called Dr Diaz answering service to relay the above message and left my cell phone number. The call was taken by [employer], 7pm. I have called blood bank to hold the platelets for tomorrow. CCU Objective - Vital Signs / Intake & Output Vital Signs (Last 4 hours): Vital Signs Temp Pulse Resp BP Pulse Ox 09/12/17 18:51 77 99/57 L 09/12/17 18:00 70 09/12/17 17:20 79 28 H 96 09/12/17 17:16 83 28 H 99/57 L 98 09/12/17 17:10 85 17 96 09/12/17 17:00 95 H 22 96 09/12/17 16:50 88 14 94 L 09/12/17 16:40 90 13 94 L 09/12/17 16:30 94 H 22 74 L 09/12/17 16:20 83 21 89 L 09/12/17 16:11 102 H 23 09/12/17 16:00 97.7 F 75 25 H 122/72 96 09/12/17 15:50 75 26 H 98 09/12/17 15:40 69 23 95 09/12/17 15:30 80 94 L 09/12/17 15:20 74 24 95 Intake and Output (Last 8hrs): Intake & Output 09/12/17 09/12/17 09/12/17 06:59 14:59 22:59 Intake Total 1805 1600 Output Total 700 2009 Balance 1105 -410 Weight 200 lb Intake: IV 750 0.9 750 Oral 300 1600 Blood Product 755 Output: Urine 700 2010 Urine, Voided 700 2009 - Physical Exam Head: Positive for: Atraumatic, Normocephalic Pupils: Positive for: PERRL Extroacular Muscles: Positive for: EOMI Conjunctiva: Positive for: Normal Mouth: Positive for: Moist Mucous Membranes Neck: Positive for: Normal Range of Motion Respiratory/Chest: Positive for: Clear to Auscultation, Good Air Exchange. Negative for: Respiratory Distress, Accessory Muscle Use Cardiovascular: Positive for: Regular Rate and Rhythm, Normal S1, S2. Negative for: Murmurs Abdomen: Positive for: Normal Bowel Sounds. Negative for: Tenderness, Distention, Peritoneal Signs Back: Positive for: GCS, CN, SP Upper Extremity: Negative for: Cyanosis, Edema, Tenderness, Swelling Lower Extremity: Negative for: Edema, CALF TENDERNESS, Tenderness, Swelling Neurological: Positive for: CN II-XII Intact, Motor Func Grossly Intact, Gait Normal Skin: Positive for: Warm, Dry, Normal Color. Negative for: Rashes Lymphatic: Positive for: OX3, NI, NC Psychiatric: Positive for: Alert, Oriented x 3, Normal Insight, Normal Concentration - Medications Active Medications: Active Medications Generic Name Dose Route Start Last Admin Trade Name Freq PRN Reason Stop Dose Admin Digoxin 0.125 mg 09/11/17 14:00 09/12/17 14:41 Digoxin PO 0.125 mg 1400 [facility] Administration Furosemide 40 mg 09/11/17 10:00 09/11/17 09:23 Lasix PO 40 mg DAILY [facility] Administration Insulin Human Regular 0 units 09/11/17 07:30 09/12/17 16:31 Humulin R Low SC Not Given [facility] Protocol Insulin Lispro Protam/Lispro Human 15 units 09/11/17 07:30 Humalog Mix 75/25 SC [facility] Metoprolol Tartrate 50 mg 09/11/17 10:00 09/12/17 18:51 Lopressor PO Not Given BID [facility] Non-Formulary Medication 10 mg 09/11/17 10:00 09/12/17 13:05 Alfuzosin Hcl [Uroxatral] PO Not Given DAILY [facility] Non-Formulary Medication 2 mg 09/11/17 10:00 09/12/17 13:06 Doxazosin Mesylate [Cardura Xl] PO Not Given DAILY [facility] Non-Formulary Medication 0.5 mg 09/11/17 10:00 09/12/17 13:07 Dutasteride [Dutasteride] PO Not Given DAILY [facility] Non-Formulary Medication 1 mcg 09/12/17 09:39 09/12/17 13:08 Paricalcitol [Zemplar] PO Not Given DAILY [facility] Oxybutynin Chloride 5 mg 09/11/17 06:00 09/12/17 14:41 Ditropan Tab PO 5 mg Q8 [facility] Administration Pantoprazole Sodium 40 mg 09/11/17 06:00 09/12/17 05:49 Protonix Ec Tab PO 40 mg 0600 [facility] Administration Phytonadione 10 mg 09/11/17 10:15 09/12/17 09:55 Vitamin K Inj SC 10 mg DAILY [facility] Administration Pregabalin 75 mg 09/11/17 10:00 09/12/17 09:55 Lyrica PO 75 mg DAILY [facility] Administration Tamsulosin HCl 0.4 mg 09/11/17 10:00 09/12/17 09:55 Flomax PO 0.4 mg DAILY [facility] Administration Tramadol HCl 50 mg 09/11/17 08:04 Ultram PO BID PRN Pain, moderate (4-7) - Patient Studies Lab Studies: Microbiology Studies 09/10/17 23:45 MRSA Culture (Admit) - Final Naris MRSA NOT DETECTED Lab Studies 09/12/17 09/12/17 09/12/17 Range/Units 07:19 05:16 05:16 WBC (4.5-11.0) 10^3/ul RBC (3.5-6.1) 10^6/uL Hgb (14.0-18.0) g/dL Hct (42.0-52.0) % MCV (80.0-105.0) fl MCH (25.0-35.0) pg MCHC (31.0-37.0) g/dl RDW (11.5-14.5) % Plt Count (120.0-450.0) 10^3/uL MPV (7.0-11.0) fl Gran % (50.0-68.0) % Lymph % (Auto) (22.0-35.0) % [place] % (Auto) (1.0-6.0) % Eos % (Auto) (1.5-5.0) % Baso % (Auto) (0.0-3.0) % Gran # (1.4-6.5) Lymph # (Auto) (1.2-3.4) [place] # (Auto) (0.1-0.6) Eos # (Auto) (0.0-0.7) Baso # (Auto) (0.0-2.0) K/mm3 PT 14.3 H (9.4-12.5) SECONDS INR 1.24 H (0.93-1.08) Sodium 140 (132-148) mmol/L Potassium 4.8 (3.6-5.0) mmol/L Chloride 102 (98-107) mmol/L Carbon Dioxide 30 (21-33) mmol/L Anion Gap 13 (10-20) BUN 20 (7-21) mg/dL Creatinine 1.7 H (0.8-1.5) mg/dl Est GFR ( Amer) 47 Est GFR (Non-Af Amer) 39 POC Glucose (mg/dL) 202 H (65-110) mg/dL Random Glucose 237 H (70-110) mg/dL Calcium 10.2 (8.4-10.5) mg/dL Total Bilirubin 1.1 (0.2-1.3) mg/dL AST 38 (17-59) U/L ALT 35 (7-56) U/L Alkaline Phosphatase 99 (38-126) U/L Total Protein 7.3 (5.8-8.3) g/dL Albumin 4.0 (3.0-4.8) g/dL Globulin 3.3 gm/dL Albumin/Globulin Ratio 1.2 (1.1-1.8) 09/12/17 09/11/17 09/11/17 Range/Units 05:16 21:36 16:06 WBC 7.6 (4.5-11.0) 10^3/ul RBC 4.19 (3.5-6.1) 10^6/uL Hgb 11.9 L (14.0-18.0) g/dL Hct 38.0 L (42.0-52.0) % MCV 90.7 (80.0-105.0) fl MCH 28.4 (25.0-35.0) pg MCHC 31.3 (31.0-37.0) g/dl RDW 16.1 H (11.5-14.5) % Plt Count 648 H (120.0-450.0) 10^3/uL MPV 8.3 (7.0-11.0) fl Gran % 74.8 H (50.0-68.0) % Lymph % (Auto) 14.4 L (22.0-35.0) % [place] % (Auto) 8.5 H (1.0-6.0) % Eos % (Auto) 1.8 (1.5-5.0) % Baso % (Auto) 0.5 (0.0-3.0) % Gran # 5.66 (1.4-6.5) Lymph # (Auto) 1.1 L (1.2-3.4) [place] # (Auto) 0.6 (0.1-0.6) Eos # (Auto) 0.1 (0.0-0.7) Baso # (Auto) 0.04 (0.0-2.0) K/mm3 PT (9.4-12.5) SECONDS INR (0.93-1.08) Sodium (132-148) mmol/L Potassium (3.6-5.0) mmol/L Chloride (98-107) mmol/L Carbon Dioxide (21-33) mmol/L Anion Gap (10-20) BUN (7-21) mg/dL Creatinine (0.8-1.5) mg/dl Est GFR ( Amer) Est GFR (Non-Af Amer) POC Glucose (mg/dL) 173 H 201 H (65-110) mg/dL Random Glucose (70-110) mg/dL Calcium (8.4-10.5) mg/dL Total Bilirubin (0.2-1.3) mg/dL AST (17-59) U/L ALT (7-56) U/L Alkaline Phosphatase (38-126) U/L Total Protein (5.8-8.3) g/dL Albumin (3.0-4.8) g/dL Globulin gm/dL Albumin/Globulin Ratio (1.1-1.8) Laboratory Results - last 24 hr 09/11/17 09/11/17 09/12/17 16:06 21:36 05:16 WBC 7.6 RBC 4.19 Hgb 11.9 L Hct 38.0 L MCV 90.7 MCH 28.4 MCHC 31.3 RDW 16.1 H Plt Count 648 H MPV 8.3 Gran % 74.8 H Lymph % (Auto) 14.4 L [place] % (Auto) 8.5 H Eos % (Auto) 1.8 Baso % (Auto) 0.5 Gran # 5.66 Lymph # (Auto) 1.1 L [place] # (Auto) 0.6 Eos # (Auto) 0.1 Baso # (Auto) 0.04 PT INR Sodium Potassium Chloride Carbon Dioxide Anion Gap BUN Creatinine Est GFR ( Amer) Est GFR (Non-Af Amer) POC Glucose (mg/dL) 201 H 173 H Random Glucose Calcium Total Bilirubin AST ALT Alkaline Phosphatase Total Protein Albumin Globulin Albumin/Globulin Ratio 09/12/17 09/12/17 09/12/17 05:16 05:16 07:19 WBC RBC Hgb Hct MCV MCH MCHC RDW Plt Count MPV Gran % Lymph % (Auto) [place] % (Auto) Eos % (Auto) Baso % (Auto) Gran # Lymph # (Auto) [place] # (Auto) Eos # (Auto) Baso # (Auto) PT 14.3 H INR 1.24 H Sodium 140 Potassium 4.8 Chloride 102 Carbon Dioxide 30 Anion Gap 13 BUN 20 Creatinine 1.7 H Est GFR ( Amer) 47 Est GFR (Non-Af Amer) 39 POC Glucose (mg/dL) 202 H Random Glucose 237 H Calcium 10.2 Total Bilirubin 1.1 AST 38 ALT 35 Alkaline Phosphatase 99 Total Protein 7.3 Albumin 4.0 Globulin 3.3 Albumin/Globulin Ratio 1.2 Fingerstick Blood Sugar Results: 114 Critical Care Progress Note - Nutrition Nutrition: Nutrition Category Date Time Status Consistent Carbohydrate [DIET] Diets 09/12/17 Breakfast Ordered
--- NOTE | 2017-09-12 23:41 | CP.PCM.PN ---
Subjective - Date & Time of Evaluation Date of Evaluation: 09/12/17 Time of Evaluation: 18:00 - Subjective Subjective: Comfortable in chair. left arm weakness. No headaches. for possible drainage of subdural hematoma. Thrombocytosis progressively increasing since 2016. Platelet count 700s K now. On coumadin, reversed by Vit K, FFP. Objective - Vital Signs/Intake and Output Vital Signs (last 24 hours): Temp Pulse Resp BP Pulse Ox 97.7 F 77 28 H 99/57 L 96 09/12/17 16:00 09/12/17 18:51 09/12/17 17:20 09/12/17 18:51 09/12/17 17:20 Intake and Output: 09/12/17 09/13/17 18:59 06:59 Intake Total 1600 Output Total 2009 Balance -410 - Medications Medications: Current Medications Digoxin (Digoxin) 0.125 mg PO 1400 [facility] Last Admin: 09/12/17 14:41 Dose: 0.125 mg Furosemide (Lasix) 40 mg PO DAILY [facility] Last Admin: 09/11/17 09:23 Dose: 40 mg Insulin Human Regular (Humulin R Low) 0 units SC [facility] PRN Reason: Protocol Last Admin: 09/12/17 22:45 Dose: Not Given Insulin Lispro Protam/Lispro Human (Humalog Mix 75/25) 15 units SC [facility] Metoprolol Tartrate (Lopressor) 50 mg PO BID [facility] Last Admin: 09/12/17 18:51 Dose: Not Given Non-Formulary Medication (Alfuzosin Hcl [Uroxatral]) 10 mg PO DAILY [facility] Last Admin: 09/12/17 13:05 Dose: Not Given Non-Formulary Medication (Doxazosin Mesylate [Cardura Xl]) 2 mg PO DAILY [facility] Last Admin: 09/12/17 13:06 Dose: Not Given Non-Formulary Medication (Dutasteride [Dutasteride]) 0.5 mg PO DAILY [facility] Last Admin: 09/12/17 13:07 Dose: Not Given Non-Formulary Medication (Paricalcitol [Zemplar]) 1 mcg PO DAILY [facility] Last Admin: 09/12/17 13:08 Dose: Not Given Oxybutynin Chloride (Ditropan Tab) 5 mg PO Q8 [facility] Last Admin: 09/12/17 21:56 Dose: 5 mg Pantoprazole Sodium (Protonix Ec Tab) 40 mg PO 0600 [facility] Last Admin: 09/12/17 05:49 Dose: 40 mg Phytonadione (Vitamin K Inj) 10 mg SC DAILY [facility] Last Admin: 09/12/17 09:55 Dose: 10 mg Pregabalin (Lyrica) 75 mg PO DAILY [facility] Last Admin: 09/12/17 09:55 Dose: 75 mg Tamsulosin HCl (Flomax) 0.4 mg PO DAILY [facility] Last Admin: 09/12/17 09:55 Dose: 0.4 mg Tramadol HCl (Ultram) 50 mg PO BID PRN PRN Reason: Pain, moderate (4-7) Last Admin: 09/12/17 21:56 Dose: 50 mg - Labs Labs: 09/12/17 05:16 09/12/17 05:16 PT 14.3 SECONDS (9.4-12.5) H 09/12/17 05:16 INR 1.24 (0.93-1.08) H 09/12/17 05:16 APTT 40.0 Seconds (25.1-36.5) H 09/10/17 19:30 - Constitutional Appears: Well, Non-toxic - Head Exam Head Exam: ATRAUMATIC, NORMAL INSPECTION, NORMOCEPHALIC - Eye Exam Pupil Exam: NORMAL ACCOMODATION - ENT Exam ENT Exam: Mucous Membranes Moist - Neck Exam Neck Exam: Normal Inspection - Respiratory Exam Respiratory Exam: Clear to Ausculation Bilateral, NORMAL BREATHING PATTERN - Cardiovascular Exam Cardiovascular Exam: Irregular Rhythm, +S1, +S2 - GI/Abdominal Exam GI & Abdominal Exam: Soft, Normal Bowel Sounds - Extremities Exam Extremities Exam: Normal Inspection - Back Exam Back Exam: NORMAL INSPECTION - Neurological Exam Neurological Exam: Alert, Awake Neuro motor strength exam: Left Upper Extremity: 3 Assessment and Plan - Assessment and Plan (Free Text) Assessment: ASSESSMENT: 1. Right subdural hematoma. 2. Hypercoagulable state secondary to Coumadin. 3. Atrial fibrillation. 4. 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 5. Possible platelet function defect. 6. Anemia. PLAN: possible subdural hematoma drainage tomorrow. 2 units of pharesis platelets ordered to be on hold. Possibility of platelet function defect or myeloproliferative disorder. Plt. count progressively increasing since 2016. CHALINO-2 mutation, BCR-ABL ordered with am labs. Coagulopathy reversed now. Discussed with ICU resident, Dr. Echols. Andreia Carroll MD
[2017-09-13] MEDS: Pantoprazole 40 mg EC Tab PO SCH (05:28)
[2017-09-13 07:02] LABS: BASO # 0.03 K/mm3 (0.0-2.0); BASO % 0.5 % (0.0-3.0); EOS # 0.2 (0.0-0.7); EOS % 3.1 % (1.5-5.0); GRAN # 4.22 (1.4-6.5); HEMOGLOBIN 11.8 g/dL (14.0-18.0); LYMPH # 1.4 (1.2-3.4); LYMPH % 21.9 % (22.0-35.0); MEAN CELL VOLUME 90.6 fl (80.0-105.0); MEAN CORPUSCULAR HEMOGLOBIN 29.2 pg (25.0-35.0); MEAN CORPUSCULAR HGB CONC 32.2 g/dl (31.0-37.0); MEAN PLATELET VOLUME 8.3 fl (7.0-11.0); MONO # 0.5 (0.1-0.6); MONO % 8.5 % (1.0-6.0); RBC 4.04 10^6/uL (3.5-6.1); RED CELL DISTRIBUTION WIDTH 15.7 % (11.5-14.5); WHITE BLOOD COUNT 6.4 10^3/ul (4.5-11.0)
[2017-09-13 07:22] LABS: INR 1.15 (0.93-1.08); PROTHROMBIN TIME 13.3 SECONDS (9.4-12.5)
[2017-09-13 07:36] LABS: ALB/GLOB RATIO 1.1 (1.1-1.8); ALBUMIN 3.8 g/dL (3.0-4.8); CALCIUM 9.7 mg/dL (8.4-10.5)
[2017-09-13] MEDS: Insulin Reg-LOW-Coverage SC SCH ×4 (07:48→22:00)
--- NOTE | 2017-09-13 08:08 | CP.PCM.PN ---
Subjective - Date & Time of Evaluation Date of Evaluation: 09/13/17 Time of Evaluation: 07:00 - Subjective Subjective: Stable in CCU. No CP or SOB. V/S noted. AF. PE: Lungs: clear Cor.: irreg S1S2 Abd.: soft Ext.: no edema Neuro.: alert I/O= 2100/3500 recorded Labs noted: INR = 1.15, Pl. Ct.= 634,000, Cr. = 1.7, etc. Echo done, will read: Prelim> NL LV fx. See full report. Objective - Vital Signs/Intake and Output Vital Signs (last 24 hours): Temp Pulse Resp BP Pulse Ox 97.5 F L 78 20 142/92 H 97 09/13/17 07:47 09/13/17 07:47 09/13/17 07:47 09/13/17 07:47 09/13/17 07:47 Intake and Output: 09/13/17 09/13/17 06:59 18:59 Intake Total 500 Output Total 1500 Balance -1000 - Medications Medications: Current Medications Digoxin (Digoxin) 0.125 mg PO 1400 [facility] Last Admin: 09/12/17 14:41 Dose: 0.125 mg Furosemide (Lasix) 40 mg PO DAILY [facility] Last Admin: 09/11/17 09:23 Dose: 40 mg Insulin Human Regular (Humulin R Low) 0 units SC [facility] PRN Reason: Protocol Last Admin: 09/13/17 07:48 Dose: Not Given Insulin Lispro Protam/Lispro Human (Humalog Mix 75/25) 15 units SC [facility] Metoprolol Tartrate (Lopressor) 50 mg PO BID [facility] Last Admin: 09/12/17 18:51 Dose: Not Given Non-Formulary Medication (Alfuzosin Hcl [Uroxatral]) 10 mg PO DAILY [facility] Last Admin: 09/12/17 13:05 Dose: Not Given Non-Formulary Medication (Doxazosin Mesylate [Cardura Xl]) 2 mg PO DAILY [facility] Last Admin: 09/12/17 13:06 Dose: Not Given Non-Formulary Medication (Dutasteride [Dutasteride]) 0.5 mg PO DAILY [facility] Last Admin: 09/12/17 13:07 Dose: Not Given Non-Formulary Medication (Paricalcitol [Zemplar]) 1 mcg PO DAILY [facility] Last Admin: 09/12/17 13:08 Dose: Not Given Oxybutynin Chloride (Ditropan Tab) 5 mg PO Q8 [facility] Last Admin: 09/13/17 05:28 Dose: Not Given Pantoprazole Sodium (Protonix Ec Tab) 40 mg PO 0600 [facility] Last Admin: 09/13/17 05:28 Dose: Not Given Phytonadione (Vitamin K Inj) 10 mg SC DAILY [facility] Last Admin: 09/12/17 09:55 Dose: 10 mg Pregabalin (Lyrica) 75 mg PO DAILY [facility] Last Admin: 09/12/17 09:55 Dose: 75 mg Tamsulosin HCl (Flomax) 0.4 mg PO DAILY [facility] Last Admin: 09/12/17 09:55 Dose: 0.4 mg Tramadol HCl (Ultram) 50 mg PO BID PRN PRN Reason: Pain, moderate (4-7) Last Admin: 09/12/17 21:56 Dose: 50 mg - Labs Labs: 09/13/17 06:50 09/13/17 06:50 PT 13.3 SECONDS (9.4-12.5) H 09/13/17 06:50 INR 1.15 (0.93-1.08) H 09/13/17 06:50 APTT 40.0 Seconds (25.1-36.5) H 09/10/17 19:30 Assessment and Plan - Assessment and Plan (Free Text) Assessment: Weak left side SDH, right brain, with midline shift AF on warfarin, therapeutic level initially> reversed Thrombocytosis/Platelet dysfunction Anemia Dementia, mild HBP Diabetes CKD DJD BPH Cataracts/Glaucoma COPD/Former Smoker Left TKR Plan: As per Neuro., Neurosurgery, Dr. Carroll, Dr. Echols, Intensivists Continue Dig. and metoprolol for rate control No A/C Hold Lasix today Monitor: Neuro. signs, sats., INR's, labs, etc Mild increased cardiac risk for planned evacuation of SDH later today. Plat. transfusions planned.
[2017-09-13] MEDS: Phytonadione 10 mg/ml Inj (Adult) SC SCH ×2 (08:55→09:29)
[2017-09-13] MEDS ORDERED: Lidocaine 1% w Epi 1:100,000 Inj ONE (09:01)
[2017-09-13] MEDS ORDERED: Bacitracin Ointment 30 GM TUBE ONE (09:01)
[2017-09-13] MEDS ORDERED: Absorbable Gelatin Sponge Size 100 ONE (09:01)
[2017-09-13] MEDS ORDERED: Liquid Adhesive TOP ONE (09:01)
[2017-09-13] MEDS ORDERED: Thrombin Topical 20,000 Intl Units Spray Kit TOP ONE (09:02)
[2017-09-13] MEDS ORDERED: Thrombin Topical 5,000 Int Units Spray Kit ONE (09:02)
[2017-09-13] MEDS ORDERED: Propofol 10 mg/ml Inj (20 ML) ONE (09:14)
[2017-09-13] MEDS: DOXAZOSIN MESYLATE 2 MG PO SCH (09:28)
[2017-09-13] MEDS: PARICALCITOL 1 MCG PO SCH (09:29)
[2017-09-13] MEDS ORDERED: Rocuronium 10 mg/ml (5 ml) ONE (09:41)
[2017-09-13] MEDS ORDERED: cefTRIAXone (Rocephin) 1 gm Inj ONE (10:06)
[2017-09-13] MEDS ORDERED: Glycopyrrolate 0.2 mg/ml (2ml vial) ONE (10:44)
--- NOTE | 2017-09-13 11:05 | CARD ---
APPROVED REPORT EXAM: Two-dimensional and M-mode echocardiogram with Doppler and color Doppler. Other Information Quality : AverageRhythm : INDICATION Atrial Fibrillation Pre-Op 2D DIMENSIONS Left Atrium (2D)4.3 (1.6-4.0cm)IVSd1.3 (0.7-1.1cm) LVDd4.1 (3.9-5.9cm)PWd1.3 (0.7-1.1cm) LVDs2.5 (2.5-4.0cm)FS (%) 39.4 % LVEF (%)70.0 (>50%) M-Mode DIMENSIONS Aortic Root3.20 (2.2-3.7cm)Aortic Cusp Exc.1.80 (1.5-2.0cm) Aortic Valve AoV Peak [id number]/s Mitral Valve E/A ratio0.0 TDI E/Lateral E'0.0E/Medial E'0.0 Tricuspid Valve TR Peak [id number]/sRAP [id number] Peak Gr.27mmHg [id number] LEFT VENTRICLE The left ventricle is normal size. There is mild concentric left ventricular hypertrophy. The left ventricular function is normal. The left ventricular ejection fraction is within the normal range. There is normal LV segmental wall motion. RIGHT VENTRICLE The right ventricle is normal size. ATRIA The left atrium is mildly dilated. The right atrium size is normal. The interatrial septum is intact with no evidence for an atrial septal defect. AORTIC VALVE The aortic valve is moderately calcified. MITRAL VALVE The mitral valve is moderately thickened but opens well. TRICUSPID VALVE The tricuspid valve is normal in structure. There is moderate tricuspid regurgitation. PULMONIC VALVE The pulmonic valve is not well visualized. GREAT VESSELS The aortic root is normal in size. The aortic root is normal in size. PERICARDIAL EFFUSION There is no pericardial effusion. There is no pericardial effusion. <Conclusion> The left ventricle is normal size. There is mild concentric left ventricular hypertrophy. The left ventricular function is normal. There is moderate tricuspid regurgitation.
[2017-09-13] MEDS ORDERED: Morphine 2 mg/ml ISec IVP PRN (11:42)
--- NOTE | 2017-09-13 11:42 | PCM.SURG1 ---
Surgeon's Initial Post Op Note - Surgeon's Notes Surgeon: Dr. Diaz Poultry Farmer Egg: Dr. Johnson Mccord PGY-2 Type of Anesthesia: General Endo Anesthesia Administered By: Dr. Mccord Pre-Operative Diagnosis: Right Subdural Hematoma Operative Findings: Right Subdural Hematoma Post-Operative Diagnosis: Right Subdural Hematoma Operation Performed: Right Craniotomy and drain placement Specimen/Specimens Removed: Dura and Hematoma Estimated Blood Loss: EBL {In ML}: 10 Blood Products Given: N/A Post-Op Condition: Good Date of Surgery/Procedure: 09/13/17 Time of Surgery/Procedure: 11:41
[2017-09-13] MEDS ORDERED: Lactated Ringer's 1,000 ML IV SCH (11:45)
--- NOTE | 2017-09-13 12:11 | CP.CCUPN ---
<Efra Greenwood - Last Filed: 09/13/17 12:13> CCU Subjective - Physician Review Subjective (Free Text): Patient seen and examined at bedside. Patient states he does not have any neurological symptoms. Patient to receive 2 units of platelets this AM. Denies chest pain, shortness of breath, nausea, vomiting, diarrhea, fever, chills, numbness, tingling, changes in vision. CCU Objective - Vital Signs / Intake & Output Vital Signs (Last 4 hours): Vital Signs Temp Pulse Resp BP Pulse Ox 09/13/17 11:52 92 H 12 152/83 H 96 09/13/17 11:37 98 F 106 H 12 159/75 H 93 L 09/13/17 09:41 98.6 F 84 20 96/43 L 09/13/17 09:37 98.6 F 90 20 133/74 09/13/17 09:26 98.4 F 80 20 141/89 09/13/17 09:21 98.4 F 91 H 20 141/89 09/13/17 09:08 97.7 F 80 20 99/62 L 09/13/17 08:52 97.5 F L 81 20 95/60 L 09/13/17 08:45 93 H 29 H 96/43 L 09/13/17 08:41 82 18 09/13/17 08:40 91 H 31 H 96 09/13/17 08:30 83 28 H 133/74 99 09/13/17 08:20 91 H 24 91 L 09/13/17 08:17 84 24 141/89 93 L Intake and Output (Last 8hrs): Intake & Output 09/12/17 09/13/17 09/13/17 22:59 06:59 14:59 Intake Total 1600 500 468 Output Total 2009 1500 Balance -410 -1000 468 Intake: Oral 1600 500 Blood Product 398 Apheresis Plts Acda Lr 199 Irr 2nd Unit [id number] Apheresis Plts Acda Lr 199 Irr 3rd Unit [id number] Other 70 Apheresis Plts Acda Lr 20 Irr 2nd Unit [id number] Apheresis Plts Acda Lr 50 Irr 3rd Unit [id number] Output: Urine 2009 1500 Urine, Voided 2009 1500 - Physical Exam Head: Positive for: Atraumatic, Normocephalic Pupils: Positive for: PERRL Extroacular Muscles: Positive for: EOMI Conjunctiva: Positive for: Normal Mouth: Positive for: Moist Mucous Membranes Neck: Positive for: Normal Range of Motion Respiratory/Chest: Positive for: Clear to Auscultation, Good Air Exchange. Negative for: Respiratory Distress, Accessory Muscle Use Cardiovascular: Positive for: Regular Rate and Rhythm, Normal S1, S2. Negative for: Murmurs Abdomen: Positive for: Normal Bowel Sounds. Negative for: Tenderness, Distention, Peritoneal Signs Back: Positive for: GCS, CN, SP Upper Extremity: Negative for: Cyanosis, Edema, Tenderness, Swelling Lower Extremity: Negative for: Edema, CALF TENDERNESS, Tenderness, Swelling Neurological: Positive for: CN II-XII Intact, Motor Func Grossly Intact Skin: Positive for: Warm, Dry, Normal Color. Negative for: Rashes Lymphatic: Positive for: OX3, NI, NC Psychiatric: Positive for: Alert, Oriented x 3, Normal Insight, Normal Concentration - Medications Active Medications: Active Medications Generic Name Dose Route Start Last Admin Trade Name Freq PRN Reason Stop Dose Admin Codeine Sulfate 30 mg 09/13/17 12:00 Codeine PO Q4 [facility] Digoxin 0.125 mg 09/11/17 14:00 09/12/17 14:41 Digoxin PO 0.125 mg 1400 [facility] Administration Furosemide 40 mg 09/11/17 10:00 09/13/17 09:28 Lasix PO Not Given DAILY [facility] Lactated Ringer's 1,000 mls @ 75 mls/hr 09/13/17 11:45 Lactated Ringer's IV 09/13/17 13:46 .[id number] [facility] Insulin Human Regular 0 units 09/11/17 07:30 09/13/17 07:48 Humulin R Low SC Not Given [facility] Protocol Insulin Lispro Protam/Lispro Human 15 units 09/11/17 07:30 Humalog Mix 75/25 SC ACHS [facility] Metoprolol Tartrate 50 mg 09/11/17 10:00 09/13/17 09:28 Lopressor PO Not Given BID [facility] Morphine Sulfate 2 mg 09/13/17 11:42 Morphine IVP Q15M PRN Pain, moderate (4-7) Non-Formulary Medication 10 mg 09/11/17 10:00 09/13/17 09:28 Alfuzosin Hcl [Uroxatral] PO Not Given DAILY [facility] Non-Formulary Medication 2 mg 09/11/17 10:00 09/13/17 09:28 Doxazosin Mesylate [Cardura Xl] PO Not Given DAILY [facility] Non-Formulary Medication 0.5 mg 09/11/17 10:00 09/13/17 09:28 Dutasteride [Dutasteride] PO Not Given DAILY [facility] Non-Formulary Medication 1 mcg 09/12/17 09:39 09/13/17 09:29 Paricalcitol [Zemplar] PO Not Given DAILY [facility] Oxybutynin Chloride 5 mg 09/11/17 06:00 09/13/17 05:28 Ditropan Tab PO Not Given Q8 [facility] Pantoprazole Sodium 40 mg 09/11/17 06:00 09/13/17 05:28 Protonix Ec Tab PO Not Given 0600 [facility] Phytonadione 10 mg 09/11/17 10:15 09/13/17 09:29 Vitamin K Inj SC Not Given DAILY [facility] Pregabalin 75 mg 09/11/17 10:00 09/13/17 09:29 Lyrica PO Not Given DAILY [facility] Tamsulosin HCl 0.4 mg 09/11/17 10:00 09/13/17 09:28 Flomax PO Not Given DAILY [facility] Tramadol HCl 50 mg 09/11/17 08:04 09/12/17 21:56 Ultram PO 50 mg BID PRN Administration Pain, moderate (4-7) - Patient Studies Lab Studies: Microbiology Studies 09/10/17 23:45 MRSA Culture (Admit) - Final Naris MRSA NOT DETECTED Lab Studies 09/13/17 09/13/17 09/13/17 Range/Units 07:40 06:50 06:50 WBC (4.5-11.0) 10^3/ul RBC (3.5-6.1) 10^6/uL Hgb (14.0-18.0) g/dL Hct (42.0-52.0) % MCV (80.0-105.0) fl MCH (25.0-35.0) pg MCHC (31.0-37.0) g/dl RDW (11.5-14.5) % Plt Count (120.0-450.0) 10^3/uL MPV (7.0-11.0) fl Gran % (50.0-68.0) % Lymph % (Auto) (22.0-35.0) % [place] % (Auto) (1.0-6.0) % Eos % (Auto) (1.5-5.0) % Baso % (Auto) (0.0-3.0) % Gran # (1.4-6.5) Lymph # (Auto) (1.2-3.4) [place] # (Auto) (0.1-0.6) Eos # (Auto) (0.0-0.7) Baso # (Auto) (0.0-2.0) K/mm3 PT (9.4-12.5) SECONDS INR (0.93-1.08) Sodium 138 (132-148) mmol/L Potassium 4.6 (3.6-5.0) mmol/L Chloride 102 (98-107) mmol/L Carbon Dioxide 28 (21-33) mmol/L Anion Gap 12 (10-20) BUN 22 H (7-21) mg/dL Creatinine 1.7 H (0.8-1.5) mg/dl Est GFR ( Amer) 47 Est GFR (Non-Af Amer) 39 POC Glucose (mg/dL) 217 H (65-110) mg/dL Random Glucose 257 H (70-110) mg/dL Calcium 9.7 (8.4-10.5) mg/dL Total Bilirubin 0.9 (0.2-1.3) mg/dL AST 28 (17-59) U/L ALT 25 (7-56) U/L Alkaline Phosphatase 99 (38-126) U/L Total Protein 7.1 (5.8-8.3) g/dL Albumin 3.8 (3.0-4.8) g/dL Globulin 3.3 gm/dL Albumin/Globulin Ratio 1.1 (1.1-1.8) Blood Type O POSITIVE Antibody Screen Negative BBK History Checked Patient has bt 09/13/17 09/13/17 09/12/17 Range/Units 06:50 06:50 21:59 WBC 6.4 (4.5-11.0) 10^3/ul RBC 4.04 (3.5-6.1) 10^6/uL Hgb 11.8 L (14.0-18.0) g/dL Hct 36.6 L (42.0-52.0) % MCV 90.6 (80.0-105.0) fl MCH 29.2 (25.0-35.0) pg MCHC 32.2 (31.0-37.0) g/dl RDW 15.7 H (11.5-14.5) % Plt Count 634 H (120.0-450.0) 10^3/uL MPV 8.3 (7.0-11.0) fl Gran % 66.0 (50.0-68.0) % Lymph % (Auto) 21.9 L (22.0-35.0) % [place] % (Auto) 8.5 H (1.0-6.0) % Eos % (Auto) 3.1 (1.5-5.0) % Baso % (Auto) 0.5 (0.0-3.0) % Gran # 4.22 (1.4-6.5) Lymph # (Auto) 1.4 (1.2-3.4) [place] # (Auto) 0.5 (0.1-0.6) Eos # (Auto) 0.2 (0.0-0.7) Baso # (Auto) 0.03 (0.0-2.0) K/mm3 PT 13.3 H (9.4-12.5) SECONDS INR 1.15 H (0.93-1.08) Sodium (132-148) mmol/L Potassium (3.6-5.0) mmol/L Chloride (98-107) mmol/L Carbon Dioxide (21-33) mmol/L Anion Gap (10-20) BUN (7-21) mg/dL Creatinine (0.8-1.5) mg/dl Est GFR ( Amer) Est GFR (Non-Af Amer) POC Glucose (mg/dL) 247 H (65-110) mg/dL Random Glucose (70-110) mg/dL Calcium (8.4-10.5) mg/dL Total Bilirubin (0.2-1.3) mg/dL AST (17-59) U/L ALT (7-56) U/L Alkaline Phosphatase (38-126) U/L Total Protein (5.8-8.3) g/dL Albumin (3.0-4.8) g/dL Globulin gm/dL Albumin/Globulin Ratio (1.1-1.8) Blood Type Antibody Screen BBK History Checked 09/12/17 Range/Units 11:04 WBC (4.5-11.0) 10^3/ul RBC (3.5-6.1) 10^6/uL Hgb (14.0-18.0) g/dL Hct (42.0-52.0) % MCV (80.0-105.0) fl MCH (25.0-35.0) pg MCHC (31.0-37.0) g/dl RDW (11.5-14.5) % Plt Count (120.0-450.0) 10^3/uL MPV (7.0-11.0) fl Gran % (50.0-68.0) % Lymph % (Auto) (22.0-35.0) % [place] % (Auto) (1.0-6.0) % Eos % (Auto) (1.5-5.0) % Baso % (Auto) (0.0-3.0) % Gran # (1.4-6.5) Lymph # (Auto) (1.2-3.4) [place] # (Auto) (0.1-0.6) Eos # (Auto) (0.0-0.7) Baso # (Auto) (0.0-2.0) K/mm3 PT (9.4-12.5) SECONDS INR (0.93-1.08) Sodium (132-148) mmol/L Potassium (3.6-5.0) mmol/L Chloride (98-107) mmol/L Carbon Dioxide (21-33) mmol/L Anion Gap (10-20) BUN (7-21) mg/dL Creatinine (0.8-1.5) mg/dl Est GFR ( Amer) Est GFR (Non-Af Amer) POC Glucose (mg/dL) 218 H (65-110) mg/dL Random Glucose (70-110) mg/dL Calcium (8.4-10.5) mg/dL Total Bilirubin (0.2-1.3) mg/dL AST (17-59) U/L ALT (7-56) U/L Alkaline Phosphatase (38-126) U/L Total Protein (5.8-8.3) g/dL Albumin (3.0-4.8) g/dL Globulin gm/dL Albumin/Globulin Ratio (1.1-1.8) Blood Type Antibody Screen BBK History Checked Laboratory Results - last 24 hr 09/12/17 09/12/17 09/13/17 11:04 21:59 06:50 WBC 6.4 RBC 4.04 Hgb 11.8 L Hct 36.6 L MCV 90.6 MCH 29.2 MCHC 32.2 RDW 15.7 H Plt Count 634 H MPV 8.3 Gran % 66.0 Lymph % (Auto) 21.9 L [place] % (Auto) 8.5 H Eos % (Auto) 3.1 Baso % (Auto) 0.5 Gran # 4.22 Lymph # (Auto) 1.4 [place] # (Auto) 0.5 Eos # (Auto) 0.2 Baso # (Auto) 0.03 PT INR Sodium Potassium Chloride Carbon Dioxide Anion Gap BUN Creatinine Est GFR ( Amer) Est GFR (Non-Af Amer) POC Glucose (mg/dL) 218 H 247 H Random Glucose Calcium Total Bilirubin AST ALT Alkaline Phosphatase Total Protein Albumin Globulin Albumin/Globulin Ratio Blood Type Antibody Screen BBK History Checked 09/13/17 09/13/17 09/13/17 06:50 06:50 06:50 WBC RBC Hgb Hct MCV MCH MCHC RDW Plt Count MPV Gran % Lymph % (Auto) [place] % (Auto) Eos % (Auto) Baso % (Auto) Gran # Lymph # (Auto) [place] # (Auto) Eos # (Auto) Baso # (Auto) PT 13.3 H INR 1.15 H Sodium 138 Potassium 4.6 Chloride 102 Carbon Dioxide 28 Anion Gap 12 BUN 22 H Creatinine 1.7 H Est GFR ( Amer) 47 Est GFR (Non-Af Amer) 39 POC Glucose (mg/dL) Random Glucose 257 H Calcium 9.7 Total Bilirubin 0.9 AST 28 ALT 25 Alkaline Phosphatase 99 Total Protein 7.1 Albumin 3.8 Globulin 3.3 Albumin/Globulin Ratio 1.1 Blood Type O POSITIVE Antibody Screen Negative BBK History Checked Patient has bt 09/13/17 07:40 WBC RBC Hgb Hct MCV MCH MCHC RDW Plt Count MPV Gran % Lymph % (Auto) [place] % (Auto) Eos % (Auto) Baso % (Auto) Gran # Lymph # (Auto) [place] # (Auto) Eos # (Auto) Baso # (Auto) PT INR Sodium Potassium Chloride Carbon Dioxide Anion Gap BUN Creatinine Est GFR ( Amer) Est GFR (Non-Af Amer) POC Glucose (mg/dL) 217 H Random Glucose Calcium Total Bilirubin AST ALT Alkaline Phosphatase Total Protein Albumin Globulin Albumin/Globulin Ratio Blood Type Antibody Screen BBK History Checked Fingerstick Blood Sugar Results: 217 Critical Care Progress Note - Nutrition Nutrition: Nutrition Category Date Time Status Consistent Carbohydrate [DIET] Diets 09/12/17 Breakfast Ordered Assessment/Plan - Assessment and Plan (Free Text) Plan: 82 year old Male with past medical history of falls, BPH, GERD, CHF, IDDM, HTN, CKD, A.fib on Coumadin presenting for acute on chronic subdural hematoma. Patient planned for evacuation of hematoma this morning. Patient given 2 units of platelets before procedure due to possible platelet defect or myeloproliferative disorder. Will repeat head CT in 24 hours and remove drain in 48 hours as per surgery. Will continue to monitor closely. Neuro: Acute on chronic subdural hematoma, stable No neurological deficits Subdural hematoma evacuation Neuro checks q1h Hold anticoagulants Fall precaution Aspiration precaution Liquid diet CV: Hx of a.fib on Coumadin as well as HTN and CHF Anticoagulation held INR 1.15 Vitamin K daily Hemodynamically stable Pulm: Maintain o2 sat greater than 90% Aspiration precaution HOB elevated 45 degrees GI: Liquid diet Protonix Nephro: Continue home meds Monitor I's and O's Maintain euvolemia Heme: Anticoagulation held Recheck INR in AM Endo: ISS Maintain euglycemia Timo, PGY-2 <Filipe Gann - Last Filed: 09/13/17 13:52> CCU Objective - Vital Signs / Intake & Output Vital Signs (Last 4 hours): Vital Signs Temp Pulse Resp BP Pulse Ox 09/13/17 11:52 92 H 12 152/83 H 96 09/13/17 11:37 98 F 106 H 12 159/75 H 93 L 09/13/17 11:20 87 98 09/13/17 11:15 85 13 146/84 98 09/13/17 11:10 92 H 19 09/13/17 11:07 91 H 19 130/76 09/13/17 11:06 91 H Intake and Output (Last 8hrs): Intake & Output 09/12/17 09/13/17 09/13/17 22:59 06:59 14:59 Intake Total 1599 500 468 Output Total 2009 1500 Balance -410 -1000 468 Intake: Oral 1600 500 Blood Product 398 Apheresis Plts Acda Lr 199 Irr 2nd Unit [id number] Apheresis Plts Acda Lr 199 Irr 3rd Unit [id number] Other 70 Apheresis Plts Acda Lr 20 Irr 2nd Unit [id number] Apheresis Plts Acda Lr 50 Irr 3rd Unit [id number] Output: Urine 2009 1500 Urine, Voided 2009 1500 - Medications Active Medications: Active Medications Generic Name Dose Route Start Last Admin Trade Name Freq PRN Reason Stop Dose Admin Codeine Sulfate 30 mg 09/13/17 12:00 09/13/17 12:22 Codeine PO 30 mg Q4 [facility] Administration Digoxin 0.125 mg 09/11/17 14:00 09/13/17 13:11 Digoxin PO 0.125 mg 1400 [facility] Administration Furosemide 40 mg 09/11/17 10:00 09/13/17 09:28 Lasix PO Not Given DAILY [facility] Insulin Human Regular 0 units 09/11/17 07:30 09/13/17 12:21 Humulin R Low SC 2 units ACHS [facility] Administration Protocol Insulin Lispro Protam/Lispro Human 15 units 09/11/17 07:30 Humalog Mix 75/25 SC ACHS [facility] Metoprolol Tartrate 50 mg 09/11/17 10:00 09/13/17 09:28 Lopressor PO Not Given BID [facility] Morphine Sulfate 2 mg 09/13/17 11:42 Morphine IVP Q15M PRN Pain, moderate (4-7) Non-Formulary Medication 10 mg 09/11/17 10:00 09/13/17 09:28 Alfuzosin Hcl [Uroxatral] PO Not Given DAILY [facility] Non-Formulary Medication 2 mg 09/11/17 10:00 09/13/17 09:28 Doxazosin Mesylate [Cardura Xl] PO Not Given DAILY [facility] Non-Formulary Medication 0.5 mg 09/11/17 10:00 09/13/17 09:28 Dutasteride [Dutasteride] PO Not Given DAILY [facility] Non-Formulary Medication 1 mcg 09/12/17 09:39 09/13/17 09:29 Paricalcitol [Zemplar] PO Not Given DAILY [facility] Oxybutynin Chloride 5 mg 09/11/17 06:00 09/13/17 13:11 Ditropan Tab PO 5 mg Q8 [facility] Administration Pantoprazole Sodium 40 mg 09/11/17 06:00 09/13/17 05:28 Protonix Ec Tab PO Not Given 0600 [facility] Pregabalin 75 mg 09/11/17 10:00 09/13/17 09:29 Lyrica PO Not Given DAILY [facility] Tamsulosin HCl 0.4 mg 09/11/17 10:00 09/13/17 09:28 Flomax PO Not Given DAILY [facility] Tramadol HCl 50 mg 09/11/17 08:04 09/12/17 21:56 Ultram PO 50 mg BID PRN Administration Pain, moderate (4-7) - Patient Studies Lab Studies: Microbiology Studies 09/10/17 23:45 MRSA Culture (Admit) - Final Naris MRSA NOT DETECTED Lab Studies 09/13/17 09/13/17 09/13/17 Range/Units 12:13 07:40 06:50 WBC (4.5-11.0) 10^3/ul RBC (3.5-6.1) 10^6/uL Hgb (14.0-18.0) g/dL Hct (42.0-52.0) % MCV (80.0-105.0) fl MCH (25.0-35.0) pg MCHC (31.0-37.0) g/dl RDW (11.5-14.5) % Plt Count (120.0-450.0) 10^3/uL MPV (7.0-11.0) fl Gran % (50.0-68.0) % Lymph % (Auto) (22.0-35.0) % [place] % (Auto) (1.0-6.0) % Eos % (Auto) (1.5-5.0) % Baso % (Auto) (0.0-3.0) % Gran # (1.4-6.5) Lymph # (Auto) (1.2-3.4) [place] # (Auto) (0.1-0.6) Eos # (Auto) (0.0-0.7) Baso # (Auto) (0.0-2.0) K/mm3 PT (9.4-12.5) SECONDS INR (0.93-1.08) Sodium (132-148) mmol/L Potassium (3.6-5.0) mmol/L Chloride (98-107) mmol/L Carbon Dioxide (21-33) mmol/L Anion Gap (10-20) BUN (7-21) mg/dL Creatinine (0.8-1.5) mg/dl Est GFR ( Amer) Est GFR (Non-Af Amer) POC Glucose (mg/dL) 226 H 217 H (65-110) mg/dL Random Glucose (70-110) mg/dL Calcium (8.4-10.5) mg/dL Total Bilirubin (0.2-1.3) mg/dL AST (17-59) U/L ALT (7-56) U/L Alkaline Phosphatase (38-126) U/L Total Protein (5.8-8.3) g/dL Albumin (3.0-4.8) g/dL Globulin gm/dL Albumin/Globulin Ratio (1.1-1.8) Blood Type O POSITIVE Antibody Screen Negative BBK History Checked Patient has bt 09/13/17 09/13/17 09/13/17 Range/Units 06:50 06:50 06:50 WBC 6.4 (4.5-11.0) 10^3/ul RBC 4.04 (3.5-6.1) 10^6/uL Hgb 11.8 L (14.0-18.0) g/dL Hct 36.6 L (42.0-52.0) % MCV 90.6 (80.0-105.0) fl MCH 29.2 (25.0-35.0) pg MCHC 32.2 (31.0-37.0) g/dl RDW 15.7 H (11.5-14.5) % Plt Count 634 H (120.0-450.0) 10^3/uL MPV 8.3 (7.0-11.0) fl Gran % 66.0 (50.0-68.0) % Lymph % (Auto) 21.9 L (22.0-35.0) % [place] % (Auto) 8.5 H (1.0-6.0) % Eos % (Auto) 3.1 (1.5-5.0) % Baso % (Auto) 0.5 (0.0-3.0) % Gran # 4.22 (1.4-6.5) Lymph # (Auto) 1.4 (1.2-3.4) [place] # (Auto) 0.5 (0.1-0.6) Eos # (Auto) 0.2 (0.0-0.7) Baso # (Auto) 0.03 (0.0-2.0) K/mm3 PT 13.3 H (9.4-12.5) SECONDS INR 1.15 H (0.93-1.08) Sodium 138 (132-148) mmol/L Potassium 4.6 (3.6-5.0) mmol/L Chloride 102 (98-107) mmol/L Carbon Dioxide 28 (21-33) mmol/L Anion Gap 12 (10-20) BUN 22 H (7-21) mg/dL Creatinine 1.7 H (0.8-1.5) mg/dl Est GFR ( Amer) 47 Est GFR (Non-Af Amer) 39 POC Glucose (mg/dL) (65-110) mg/dL Random Glucose 257 H (70-110) mg/dL Calcium 9.7 (8.4-10.5) mg/dL Total Bilirubin 0.9 (0.2-1.3) mg/dL AST 28 (17-59) U/L ALT 25 (7-56) U/L Alkaline Phosphatase 99 (38-126) U/L Total Protein 7.1 (5.8-8.3) g/dL Albumin 3.8 (3.0-4.8) g/dL Globulin 3.3 gm/dL Albumin/Globulin Ratio 1.1 (1.1-1.8) Blood Type Antibody Screen BBK History Checked 09/12/17 09/12/17 Range/Units 21:59 11:04 WBC (4.5-11.0) 10^3/ul RBC (3.5-6.1) 10^6/uL Hgb (14.0-18.0) g/dL Hct (42.0-52.0) % MCV (80.0-105.0) fl MCH (25.0-35.0) pg MCHC (31.0-37.0) g/dl RDW (11.5-14.5) % Plt Count (120.0-450.0) 10^3/uL MPV (7.0-11.0) fl Gran % (50.0-68.0) % Lymph % (Auto) (22.0-35.0) % [place] % (Auto) (1.0-6.0) % Eos % (Auto) (1.5-5.0) % Baso % (Auto) (0.0-3.0) % Gran # (1.4-6.5) Lymph # (Auto) (1.2-3.4) [place] # (Auto) (0.1-0.6) Eos # (Auto) (0.0-0.7) Baso # (Auto) (0.0-2.0) K/mm3 PT (9.4-12.5) SECONDS INR (0.93-1.08) Sodium (132-148) mmol/L Potassium (3.6-5.0) mmol/L Chloride (98-107) mmol/L Carbon Dioxide (21-33) mmol/L Anion Gap (10-20) BUN (7-21) mg/dL Creatinine (0.8-1.5) mg/dl Est GFR ( Amer) Est GFR (Non-Af Amer) POC Glucose (mg/dL) 247 H 218 H (65-110) mg/dL Random Glucose (70-110) mg/dL Calcium (8.4-10.5) mg/dL Total Bilirubin (0.2-1.3) mg/dL AST (17-59) U/L ALT (7-56) U/L Alkaline Phosphatase (38-126) U/L Total Protein (5.8-8.3) g/dL Albumin (3.0-4.8) g/dL Globulin gm/dL Albumin/Globulin Ratio (1.1-1.8) Blood Type Antibody Screen BBK History Checked Laboratory Results - last 24 hr 09/12/17 09/12/17 09/13/17 11:04 21:59 06:50 WBC 6.4 RBC 4.04 Hgb 11.8 L Hct 36.6 L MCV 90.6 MCH 29.2 MCHC 32.2 RDW 15.7 H Plt Count 634 H MPV 8.3 Gran % 66.0 Lymph % (Auto) 21.9 L [place] % (Auto) 8.5 H Eos % (Auto) 3.1 Baso % (Auto) 0.5 Gran # 4.22 Lymph # (Auto) 1.4 [place] # (Auto) 0.5 Eos # (Auto) 0.2 Baso # (Auto) 0.03 PT INR Sodium Potassium Chloride Carbon Dioxide Anion Gap BUN Creatinine Est GFR ( Amer) Est GFR (Non-Af Amer) POC Glucose (mg/dL) 218 H 247 H Random Glucose Calcium Total Bilirubin AST ALT Alkaline Phosphatase Total Protein Albumin Globulin Albumin/Globulin Ratio Blood Type Antibody Screen BBK History Checked 09/13/17 09/13/17 09/13/17 06:50 06:50 06:50 WBC RBC Hgb Hct MCV MCH MCHC RDW Plt Count MPV Gran % Lymph % (Auto) [place] % (Auto) Eos % (Auto) Baso % (Auto) Gran # Lymph # (Auto) [place] # (Auto) Eos # (Auto) Baso # (Auto) PT 13.3 H INR 1.15 H Sodium 138 Potassium 4.6 Chloride 102 Carbon Dioxide 28 Anion Gap 12 BUN 22 H Creatinine 1.7 H Est GFR ( Amer) 47 Est GFR (Non-Af Amer) 39 POC Glucose (mg/dL) Random Glucose 257 H Calcium 9.7 Total Bilirubin 0.9 AST 28 ALT 25 Alkaline Phosphatase 99 Total Protein 7.1 Albumin 3.8 Globulin 3.3 Albumin/Globulin Ratio 1.1 Blood Type O POSITIVE Antibody Screen Negative BBK History Checked Patient has bt 09/13/17 09/13/17 07:40 12:13 WBC RBC Hgb Hct MCV MCH MCHC RDW Plt Count MPV Gran % Lymph % (Auto) [place] % (Auto) Eos % (Auto) Baso % (Auto) Gran # Lymph # (Auto) [place] # (Auto) Eos # (Auto) Baso # (Auto) PT INR Sodium Potassium Chloride Carbon Dioxide Anion Gap BUN Creatinine Est GFR ( Amer) Est GFR (Non-Af Amer) POC Glucose (mg/dL) 217 H 226 H Random Glucose Calcium Total Bilirubin AST ALT Alkaline Phosphatase Total Protein Albumin Globulin Albumin/Globulin Ratio Blood Type Antibody Screen BBK History Checked Critical Care Progress Note - Nutrition Nutrition: Nutrition Category Date Time Status Consistent Carbohydrate [DIET] Diets 09/12/17 Breakfast Ordered Attending/Attestation - Attestation I have personally seen and examined this patient.: Yes I have fully participated in the care of the patient.: Yes I have reviewed all pertinent clinical information: Yes Notes (Text): 09/13/17 13:50 82 yo male 2ith acute spontanseous SDH, now s/p evacuation. Extubated in OR, alert, awake without neuro deficit. Has underlying dysfunctional platelet disorder as per hem/onc, received 2 bags of plate perioperatively. OOB to chair , IS, chest PT, DVT/GI prophylaxis, avoid AC, pulmonary toilet. advance diet as toelrated once cleared by nsx ccm time 40 min
[2017-09-13] MEDS: Digoxin 125 mcg (0.125 mg) Tab PO SCH (13:11)
--- NOTE | 2017-09-13 18:31 | PN ---
DATE: 09/13/2017 SUBJECTIVE: The patient has no complaints of any chest pain. No shortness of breath. No shortness of breath. No headaches or dizziness. He says he is a bit nervous about the procedure to drain the subdural, but feeling comfortable. PHYSICAL EXAMINATION: VITAL SIGNS: Temperature is 97.4, pulse 100, blood pressure is 137/73, respirations 19. GENERAL: The patient is lying in bed, flat, comfortable. HEENT: No oral lesion. Anicteric sclerae. Moist mucosa. NECK: No JVD, adenopathy, or thyromegaly. CARDIOVASCULAR: S1 and S2, regular. No murmurs, rubs, or gallops. LUNGS: Clear to auscultation bilaterally. No wheeze, rales, or rhonchi. ABDOMEN: Bowel sounds are positive, soft, nontender and nondistended. EXTREMITIES: No cyanosis, clubbing or edema. LABORATORY DATA: White count is 6.4, hemoglobin 11.8. Creatinine is 1.7. ASSESSMENT: 1. Right-sided subdural hematoma. 2. Diabetes type 2. 3. Hypertension. 4. Benign prostatic hypertrophy. 5. Atrial fibrillation. Coumadin on hold. 6. Chronic kidney disease stage 3. 7. Thrombocytosis. PLAN: The patient is being followed by Hematology. The patient has been given platelets because of probable platelet dysfunction because of the thrombocytosis. The patient is being followed by Cardiology. We will continue with the Flomax for BPH and the Lasix daily. The patient is on metoprolol. We will place the patient on Ultram. He is going to be continued to be followed in the ICU. We will repeat blood work tomorrow. Harvey Echols MD
--- NOTE | 2017-09-13 20:07 | OP ---
PROCEDURE DATE: 09/13/2017 PREOPERATIVE DIAGNOSIS: Mixed density right subdural hematoma. POSTOPERATIVE DIAGNOSIS: Mixed density right subdural hematoma. PROCEDURE: Right central craniotomy, drainage of subdural hematoma. SURGEON: Ángel Diaz MD. STONE HAND: , resident. TYPE OF ANESTHESIA: General endotracheal. ESTIMATED BLOOD LOSS: 30 mL. COMPLICATIONS: None. JUSTIFICATION: The patient presented to the hospital with some left-sided weakness. 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 He was suggested to undergo operative evacuation after correcting his coagulopathy. The nature of this procedure, the rationale behind it, potential risks, complications, chance of success were discussed. His questions were answered. He understood the above and elected to proceed as offered. DESCRIPTION OF PROCEDURE: Patient was taken to the operating room. He was intubated and anesthetized, placed on the OR table in a supine position and placed on a donut. A shoulder roll placed under his right shoulder. It had turned maximally to the left and then elevated. The entire right side of his head was hair clipped, scrubbed with acetone and scrubbed, painted, and draped in the usual sterile fashion. A lazy S-type incision was traced out just above the superior temporal line in the posterior frontal and anterior parietal region conforming with the maximal thickness of the subdural. well over the calvarium, self-retaining retractors were placed. The bleach machine operator was used to place two katty holes in the anterior and posterior extremes of the exposed calvarium. The dura was reflected off the inner table. Craniotome was used to elevate this flap. Bulging dura was then identified. The dura was then opened with a 15 blade knife. Almost immediately, we encountered a thick blue membrane, the dural leaflets were tacked backwards. I then used a bipolar cautery to cauterize through the membrane and only found another membrane beneath that and subsequently another yellow membrane beneath that. There were layers and layers of adhesive scarred membrane indicating possibly even years of repeated small hemorrhages. I had to dissect through probably 3 to 4 mm of various forms of scarred tissue and membranes to get liquid hematoma, which delivered itself. At this point, I used a bipolar cautery to cauterize back the edges of the various layers of membranes. I used micro forceps to disrupt the most inner membrane overlying the arachnoid of the brain and open that up. At this point, a red rubber catheter with additional holes cut into it was then used to irrigate in a 360-degree fashion underneath all the membranes, each quadrant actually returned clear fluid. This certainly may be because there was no true subdural blood underneath the membranes and simply the patient had protected membranes throughout which may in fact not allow his brain to reexpand. In any case, the red rubber catheter was left in, headed in mostly posteriorly and superiorly again conforming with the maximum thickness of the subdural and it was tunneled out the posterior katty hole with a separate stab incision and tacked into place. I then irrigated the entire field and ensured that hemostasis was complete. The dura was re-approximated using interrupted 3-0 Nurolon. A layer of solid Gelfoam placed in the epidural space. The cranial flap was then replaced using three CranioFix plates. The area was then closed using an interrupted inverted 3-0 Vicryl stitches, skin closed with camille, Bacitracin ointment, soft sterile dressing was placed, and the red rubber catheter was hooked up to a Roldan drainage system draining a small amount of sanguineous fluid on the conclusion of the case. Patient was aroused by anesthesia, extubated easily, was then noted to be talking, following commands, moving all extremities on his way to the recovery room. All counts were correct. There were no complications. Ángel Diaz MD
[2017-09-14] MEDS: Pantoprazole 40 mg EC Tab PO SCH (05:32)
[2017-09-14 07:17] LABS: BASO # 0.06 K/mm3 (0.0-2.0); BASO % 0.6 % (0.0-3.0); EOS # 0.2 (0.0-0.7); EOS % 1.7 % (1.5-5.0); GRAN # 8.13 (1.4-6.5); GRAN % 76.6 % (50.0-68.0); HEMOGLOBIN 11.5 g/dL (14.0-18.0); LYMPH # 1.2 (1.2-3.4); MEAN CELL VOLUME 90.2 fl (80.0-105.0); MEAN CORPUSCULAR HEMOGLOBIN 28.8 pg (25.0-35.0); MEAN CORPUSCULAR HGB CONC 31.9 g/dl (31.0-37.0); MEAN PLATELET VOLUME 8.2 fl (7.0-11.0); MONO # 1.1 (0.1-0.6); MONO % 10.1 % (1.0-6.0); RBC 3.99 10^6/uL (3.5-6.1); RED CELL DISTRIBUTION WIDTH 15.7 % (11.5-14.5); WHITE BLOOD COUNT 10.6 10^3/ul (4.5-11.0)
[2017-09-14 07:32] LABS: INR 1.2 (0.93-1.08); PROTHROMBIN TIME 13.9 SECONDS (9.4-12.5)
[2017-09-14 07:35] LABS: ALB/GLOB RATIO 1.1 (1.1-1.8); ALBUMIN 3.7 g/dL (3.0-4.8); CALCIUM 9.9 mg/dL (8.4-10.5)
[2017-09-14] MEDS: Insulin Reg-LOW-Coverage SC SCH ×4 (08:05→22:00)
[2017-09-14] MEDS: DOXAZOSIN MESYLATE 2 MG PO SCH (09:03)
--- NOTE | 2017-09-14 09:47 | CP.PCM.PN ---
Subjective - Date & Time of Evaluation Date of Evaluation: 09/14/17 Time of Evaluation: 09:43 - Subjective Subjective: POD 1 a,a,o x 3 c/o intermittent numbness L UE No weakness 5/5 throughout nl sensation in face and 3 limbs,has altered sens in L ue but present 50 cc sd drainage P probable cortical irritation during SD membrane removal _ sens disturbance diet oob f/u CT am Objective - Vital Signs/Intake and Output Vital Signs (last 24 hours): Temp Pulse Resp BP Pulse Ox 99.5 F 115 H 18 110/63 95 09/14/17 04:00 09/14/17 09:03 09/14/17 06:10 09/14/17 09:03 09/14/17 06:10 Intake and Output: 09/14/17 09/14/17 06:59 18:59 Intake Total 1000 Output Total 1050 Balance -50 - Medications Medications: Current Medications Codeine Sulfate (Codeine) 30 mg PO Q4 [facility] Last Admin: 09/14/17 09:02 Dose: 30 mg Digoxin (Digoxin) 0.125 mg PO 1400 [facility] Last Admin: 09/13/17 13:11 Dose: 0.125 mg Furosemide (Lasix) 40 mg PO DAILY [facility] Last Admin: 09/14/17 09:03 Dose: 40 mg Insulin Human Regular (Humulin R Low) 0 units SC [facility] PRN Reason: Protocol Last Admin: 09/14/17 08:05 Dose: 3 units Insulin Lispro Protam/Lispro Human (Humalog Mix 75/25) 15 units SC [facility] Metoprolol Tartrate (Lopressor) 50 mg PO BID [facility] Last Admin: 09/14/17 09:03 Dose: 50 mg Non-Formulary Medication (Alfuzosin Hcl [Uroxatral]) 10 mg PO DAILY [facility] Last Admin: 09/14/17 09:02 Dose: Not Given Non-Formulary Medication (Doxazosin Mesylate [Cardura Xl]) 2 mg PO DAILY [facility] Last Admin: 09/14/17 09:03 Dose: Not Given Non-Formulary Medication (Dutasteride [Dutasteride]) 0.5 mg PO DAILY [facility] Last Admin: 09/14/17 09:03 Dose: Not Given Non-Formulary Medication (Paricalcitol [Zemplar]) 1 mcg PO DAILY [facility] Last Admin: 09/13/17 09:29 Dose: Not Given Oxybutynin Chloride (Ditropan Tab) 5 mg PO Q8 [facility] Last Admin: 09/14/17 05:32 Dose: 5 mg Pantoprazole Sodium (Protonix Ec Tab) 40 mg PO 0600 [facility] Last Admin: 09/14/17 05:32 Dose: 40 mg Pregabalin (Lyrica) 75 mg PO DAILY [facility] Last Admin: 09/14/17 09:04 Dose: 75 mg Tamsulosin HCl (Flomax) 0.4 mg PO DAILY [facility] Last Admin: 09/14/17 09:03 Dose: 0.4 mg Tramadol HCl (Ultram) 50 mg PO BID PRN PRN Reason: Pain, moderate (4-7) Last Admin: 09/12/17 21:56 Dose: 50 mg - Labs Labs: 09/14/17 06:00 09/14/17 06:00 PT 13.9 SECONDS (9.4-12.5) H 09/14/17 06:00 INR 1.20 (0.93-1.08) H 09/14/17 06:00 APTT 40.0 Seconds (25.1-36.5) H 09/10/17 19:30
[2017-09-14] MEDS: PARICALCITOL 1 MCG PO SCH (10:26)
--- NOTE | 2017-09-14 13:04 | CP.PCM.PN ---
Subjective - Date & Time of Evaluation Date of Evaluation: 09/14/17 Time of Evaluation: 13:03 - Subjective Subjective: Mr. Chi was seen and examined at the bedside in ICU. He is alert, oriented with episode of forgetfulness. He is able to answer all questions. He denies any headache, dizziness, lightheadedness, blurred vision, nausea, or vomiting. He is able to feed himself with no assistance. He has minimal left sided weakness. He has the right parietal area dressing with a catheter draining to a minimal bloody drainage. There was no untoward events overnight. Objective - Vital Signs/Intake and Output Vital Signs (last 24 hours): Temp Pulse Resp BP Pulse Ox 98.6 F 94 H 22 105/63 96 09/14/17 12:00 09/14/17 12:00 09/14/17 12:00 09/14/17 12:00 09/14/17 12:00 Intake and Output: 09/14/17 09/14/17 06:59 18:59 Intake Total 1000 Output Total 1050 350 Balance -50 -350 - Medications Medications: Current Medications Codeine Sulfate (Codeine) 30 mg PO Q4 [facility] Last Admin: 09/14/17 09:02 Dose: 30 mg Digoxin (Digoxin) 0.125 mg PO 1400 [facility] Last Admin: 09/13/17 13:11 Dose: 0.125 mg Furosemide (Lasix) 40 mg PO DAILY [facility] Last Admin: 09/14/17 09:03 Dose: 40 mg Insulin Human Regular (Humulin R Low) 0 units SC [facility] PRN Reason: Protocol Last Admin: 09/14/17 11:45 Dose: 3 units Insulin Lispro Protam/Lispro Human (Humalog Mix 75/25) 15 units SC [facility] Metoprolol Tartrate (Lopressor) 50 mg PO BID [facility] Last Admin: 09/14/17 09:03 Dose: 50 mg Non-Formulary Medication (Alfuzosin Hcl [Uroxatral]) 10 mg PO DAILY [facility] Last Admin: 09/14/17 09:02 Dose: Not Given Non-Formulary Medication (Doxazosin Mesylate [Cardura Xl]) 2 mg PO DAILY [facility] Last Admin: 09/14/17 09:03 Dose: Not Given Non-Formulary Medication (Dutasteride [Dutasteride]) 0.5 mg PO DAILY [facility] Last Admin: 09/14/17 09:03 Dose: Not Given Non-Formulary Medication (Paricalcitol [Zemplar]) 1 mcg PO DAILY [facility] Last Admin: 09/14/17 10:26 Dose: Not Given Oxybutynin Chloride (Ditropan Tab) 5 mg PO Q8 [facility] Last Admin: 09/14/17 05:32 Dose: 5 mg Pantoprazole Sodium (Protonix Ec Tab) 40 mg PO 0600 [facility] Last Admin: 09/14/17 05:32 Dose: 40 mg Pregabalin (Lyrica) 75 mg PO DAILY [facility] Last Admin: 09/14/17 09:04 Dose: 75 mg Tamsulosin HCl (Flomax) 0.4 mg PO DAILY [facility] Last Admin: 09/14/17 09:03 Dose: 0.4 mg Tramadol HCl (Ultram) 50 mg PO BID PRN PRN Reason: Pain, moderate (4-7) Last Admin: 09/12/17 21:56 Dose: 50 mg - Labs Labs: 09/14/17 06:00 09/14/17 06:00 PT 13.9 SECONDS (9.4-12.5) H 09/14/17 06:00 INR 1.20 (0.93-1.08) H 09/14/17 06:00 APTT 40.0 Seconds (25.1-36.5) H 09/10/17 19:30 - Constitutional Appears: No Acute Distress - Head Exam Head Exam: NORMAL INSPECTION - Neurological Exam Neurological Exam: Alert, Awake, Oriented x3 Neuro motor strength exam: Left Upper Extremity: 4, Right Upper Extremity: 5, Left Lower Extremity: 4, Right Lower Extremity: 5 Additional comments: Neurological unchanged from previous examination. Assessment and Plan (1) Subdural hemorrhage Assessment & Plan: Case discussed with Dr. Blue, continue all current medical, physical, and occupational therapies. Recommend to defer neurological treatment to neurosurgery. Status: Acute
[2017-09-14] MEDS: Digoxin 125 mcg (0.125 mg) Tab PO SCH (13:16)
--- NOTE | 2017-09-14 14:32 | PN ---
DATE: SUBJECTIVE: The patient is currently comfortable with no complaints of any chest pain, shortness of breath, headaches, or dizziness. PHYSICAL EXAMINATION: VITAL SIGNS: Temperature is 99.5, pulse of 115, blood pressure is 110/63, respirations 18. GENERAL: The patient is lying in bed, flat, comfortable. HEENT: No oral lesion. Anicteric sclerae. Moist mucosa. NECK: No JVD, adenopathy, or thyromegaly. CARDIOVASCULAR: S1 and S2, regular. No murmurs, rubs, or gallops. LUNGS: Clear to auscultation bilaterally. No wheeze, rales, or rhonchi. ABDOMEN: Bowel sounds are positive, soft, nontender and nondistended. EXTREMITIES: no cyanosis, clubbing or edema. LABORATORY DATA: White count of 10.6, hemoglobin 11.5. Creatinine is 1.7. ASSESSMENT: 1. Right-sided subdural hematoma, status post drainage, postoperative day #1. 2. Diabetes type 2. 3. Hypertension. 4. Benign prostatic hypertrophy. 5. Atrial fibrillation, Coumadin on hold. 6. Chronic kidney disease stage 3. 7. Thrombocytosis. PLAN: The patient is currently comfortable. He is on codeine for pain. He is on digoxin. The patient want to continue on Flomax. He is on Lasix daily. He is on metoprolol. He is on tramadol for his pain. He is tolerating his diet. I will continue to follow closely. He continues to remain in the ICU. I did inform Dr. Mahmood, his primary care doctor about the patient's condition. Harvey Echols MD
--- NOTE | 2017-09-14 14:42 | CP.CCUPN ---
<Shad Norris - Last Filed: 09/14/17 14:42> CCU Subjective - Physician Review Subjective (Free Text): Patient seen and evaluated bedside. No acute events overnight. patient states he is doing well, denies any numbness or tingling. No other complaints at this time. 09/14/17 14:41 Critical Care Time Spent (in minutes): 35 CCU Objective - Vital Signs / Intake & Output Vital Signs (Last 4 hours): Vital Signs Temp Pulse Resp BP Pulse Ox 09/14/17 14:00 78 09/14/17 13:00 72 121/54 L 09/14/17 12:50 75 26 H 09/14/17 12:40 78 25 H 09/14/17 12:30 71 30 H 09/14/17 12:20 79 29 H 09/14/17 12:10 72 18 09/14/17 12:00 98.6 F 76 27 H 94/64 L 96 09/14/17 11:50 75 24 09/14/17 11:44 80 23 09/14/17 11:30 82 27 H 97 09/14/17 11:20 79 27 H 95 09/14/17 11:10 86 95 09/14/17 11:00 74 27 H 105/63 95 09/14/17 10:50 71 30 H 95 Intake and Output (Last 8hrs): Intake & Output 09/13/17 09/14/17 09/14/17 22:59 06:59 14:59 Intake Total 800 1000 Output Total 200 1050 350 Balance 600 -50 -350 Intake: Oral 800 1000 Output: Urine 200 1050 350 Urine, Voided 200 1050 350 - Physical Exam Head: Positive for: Atraumatic, Normocephalic, Other (drainage apparatus in place) Pupils: Positive for: PERRL Extroacular Muscles: Positive for: EOMI Conjunctiva: Positive for: Normal Mouth: Positive for: Moist Mucous Membranes Neck: Positive for: Normal Range of Motion Respiratory/Chest: Positive for: Clear to Auscultation, Good Air Exchange. Negative for: Respiratory Distress, Accessory Muscle Use Cardiovascular: Positive for: Regular Rate and Rhythm, Normal S1, S2. Negative for: Murmurs Abdomen: Positive for: Normal Bowel Sounds. Negative for: Tenderness, Distention, Peritoneal Signs Back: Positive for: GCS, CN, SP Upper Extremity: Negative for: Cyanosis, Edema, Tenderness, Swelling Lower Extremity: Negative for: Edema, CALF TENDERNESS, Tenderness, Swelling Neurological: Positive for: CN II-XII Intact, Motor Func Grossly Intact Skin: Positive for: Warm, Dry, Normal Color. Negative for: Rashes Lymphatic: Positive for: OX3, NI, NC Psychiatric: Positive for: Alert, Oriented x 3, Normal Insight, Normal Concentration - Medications Active Medications: Active Medications Generic Name Dose Route Start Last Admin Trade Name Freq PRN Reason Stop Dose Admin Codeine Sulfate 30 mg 09/13/17 12:00 09/14/17 13:16 Codeine PO 30 mg Q4 [facility] Administration Digoxin 0.125 mg 09/11/17 14:00 09/14/17 13:16 Digoxin PO 0.125 mg 1400 [facility] Administration Furosemide 40 mg 09/11/17 10:00 09/14/17 09:03 Lasix PO 40 mg DAILY [facility] Administration Insulin Human Regular 0 units 09/11/17 07:30 09/14/17 11:45 Humulin R Low SC 3 units [facility] Administration Protocol Insulin Lispro Protam/Lispro Human 15 units 09/11/17 07:30 Humalog Mix 75/25 SC ACHS [facility] Metoprolol Tartrate 50 mg 09/11/17 10:00 09/14/17 09:03 Lopressor PO 50 mg BID [facility] Administration Non-Formulary Medication 10 mg 09/11/17 10:00 09/14/17 09:02 Alfuzosin Hcl [Uroxatral] PO Not Given DAILY [facility] Non-Formulary Medication 2 mg 09/11/17 10:00 09/14/17 09:03 Doxazosin Mesylate [Cardura Xl] PO Not Given DAILY [facility] Non-Formulary Medication 0.5 mg 09/11/17 10:00 09/14/17 09:03 Dutasteride [Dutasteride] PO Not Given DAILY [facility] Non-Formulary Medication 1 mcg 09/12/17 09:39 09/14/17 10:26 Paricalcitol [Zemplar] PO Not Given DAILY [facility] Oxybutynin Chloride 5 mg 09/11/17 06:00 09/14/17 13:16 Ditropan Tab PO 5 mg Q8 [facility] Administration Pantoprazole Sodium 40 mg 09/11/17 06:00 03/14/18 05:32 Protonix Ec Tab PO 40 mg 0600 [facility] Administration Pregabalin 75 mg 09/11/17 10:00 09/14/17 09:04 Lyrica PO 75 mg DAILY [facility] Administration Tamsulosin HCl 0.4 mg 09/11/17 10:00 09/14/17 09:03 Flomax PO 0.4 mg DAILY [facility] Administration Tramadol HCl 50 mg 09/11/17 08:04 09/12/17 21:56 Ultram PO 50 mg BID PRN Administration Pain, moderate (4-7) - Patient Studies Lab Studies: Lab Studies 09/14/17 09/14/17 09/14/17 Range/Units 06:00 06:00 06:00 WBC 10.6 D (4.5-11.0) 10^3/ul RBC 3.99 (3.5-6.1) 10^6/uL Hgb 11.5 L (14.0-18.0) g/dL Hct 36.0 L (42.0-52.0) % MCV 90.2 (80.0-105.0) fl MCH 28.8 (25.0-35.0) pg MCHC 31.9 (31.0-37.0) g/dl RDW 15.7 H (11.5-14.5) % Plt Count 609 H (120.0-450.0) 10^3/uL MPV 8.2 (7.0-11.0) fl Gran % 76.6 H (50.0-68.0) % Lymph % (Auto) 11.0 L (22.0-35.0) % [place] % (Auto) 10.1 H (1.0-6.0) % Eos % (Auto) 1.7 (1.5-5.0) % Baso % (Auto) 0.6 (0.0-3.0) % Gran # 8.13 H (1.4-6.5) Lymph # (Auto) 1.2 (1.2-3.4) [place] # (Auto) 1.1 H (0.1-0.6) Eos # (Auto) 0.2 (0.0-0.7) Baso # (Auto) 0.06 (0.0-2.0) K/mm3 PT 13.9 H (9.4-12.5) SECONDS INR 1.20 H (0.93-1.08) Sodium 136 (132-148) mmol/L Potassium 4.8 (3.6-5.0) mmol/L Chloride 99 (98-107) mmol/L Carbon Dioxide 28 (21-33) mmol/L Anion Gap 14 (10-20) BUN 20 (7-21) mg/dL Creatinine 1.7 H (0.8-1.5) mg/dl Est GFR ( Amer) 47 Est GFR (Non-Af Amer) 39 POC Glucose (mg/dL) (65-110) mg/dL Random Glucose 280 H (70-110) mg/dL Calcium 9.9 (8.4-10.5) mg/dL Total Bilirubin 0.9 (0.2-1.3) mg/dL AST 31 (17-59) U/L ALT 27 (7-56) U/L Alkaline Phosphatase 89 (38-126) U/L Total Protein 7.2 (5.8-8.3) g/dL Albumin 3.7 (3.0-4.8) g/dL Globulin 3.5 gm/dL Albumin/Globulin Ratio 1.1 (1.1-1.8) 09/13/17 09/13/17 Range/Units 22:20 15:44 WBC (4.5-11.0) 10^3/ul RBC (3.5-6.1) 10^6/uL Hgb (14.0-18.0) g/dL Hct (42.0-52.0) % MCV (80.0-105.0) fl MCH (25.0-35.0) pg MCHC (31.0-37.0) g/dl RDW (11.5-14.5) % Plt Count (120.0-450.0) 10^3/uL MPV (7.0-11.0) fl Gran % (50.0-68.0) % Lymph % (Auto) (22.0-35.0) % [place] % (Auto) (1.0-6.0) % Eos % (Auto) (1.5-5.0) % Baso % (Auto) (0.0-3.0) % Gran # (1.4-6.5) Lymph # (Auto) (1.2-3.4) [place] # (Auto) (0.1-0.6) Eos # (Auto) (0.0-0.7) Baso # (Auto) (0.0-2.0) K/mm3 PT (9.4-12.5) SECONDS INR (0.93-1.08) Sodium (132-148) mmol/L Potassium (3.6-5.0) mmol/L Chloride (98-107) mmol/L Carbon Dioxide (21-33) mmol/L Anion Gap (10-20) BUN (7-21) mg/dL Creatinine (0.8-1.5) mg/dl Est GFR ( Amer) Est GFR (Non-Af Amer) POC Glucose (mg/dL) 264 H 259 H (65-110) mg/dL Random Glucose (70-110) mg/dL Calcium (8.4-10.5) mg/dL Total Bilirubin (0.2-1.3) mg/dL AST (17-59) U/L ALT (7-56) U/L Alkaline Phosphatase (38-126) U/L Total Protein (5.8-8.3) g/dL Albumin (3.0-4.8) g/dL Globulin gm/dL Albumin/Globulin Ratio (1.1-1.8) Laboratory Results - last 24 hr 09/13/17 09/13/17 09/14/17 15:44 22:20 06:00 WBC 10.6 D RBC 3.99 Hgb 11.5 L Hct 36.0 L MCV 90.2 MCH 28.8 MCHC 31.9 RDW 15.7 H Plt Count 609 H MPV 8.2 Gran % 76.6 H Lymph % (Auto) 11.0 L [place] % (Auto) 10.1 H Eos % (Auto) 1.7 Baso % (Auto) 0.6 Gran # 8.13 H Lymph # (Auto) 1.2 [place] # (Auto) 1.1 H Eos # (Auto) 0.2 Baso # (Auto) 0.06 PT INR Sodium Potassium Chloride Carbon Dioxide Anion Gap BUN Creatinine Est GFR ( Amer) Est GFR (Non-Af Amer) POC Glucose (mg/dL) 259 H 264 H Random Glucose Calcium Total Bilirubin AST ALT Alkaline Phosphatase Total Protein Albumin Globulin Albumin/Globulin Ratio 09/14/17 09/14/17 06:00 06:00 WBC RBC Hgb Hct MCV MCH MCHC RDW Plt Count MPV Gran % Lymph % (Auto) [place] % (Auto) Eos % (Auto) Baso % (Auto) Gran # Lymph # (Auto) [place] # (Auto) Eos # (Auto) Baso # (Auto) PT 13.9 H INR 1.20 H Sodium 136 Potassium 4.8 Chloride 99 Carbon Dioxide 28 Anion Gap 14 BUN 20 Creatinine 1.7 H Est GFR ( Amer) 47 Est GFR (Non-Af Amer) 39 POC Glucose (mg/dL) Random Glucose 280 H Calcium 9.9 Total Bilirubin 0.9 AST 31 ALT 27 Alkaline Phosphatase 89 Total Protein 7.2 Albumin 3.7 Globulin 3.5 Albumin/Globulin Ratio 1.1 Fingerstick Blood Sugar Results: 271 Review of Systems - Constitutional Constitutional: absent: Chills, Sweats - EENT Ears: UNREMARKABLE Nose/Mouth/Throat: UNREMARKABLE - Cardiovascular Cardiovascular: UNREMARKABLE - Respiratory Respiratory: UNREMARKABLE - Gastrointestinal Gastrointestinal: UNREMARKABLE - Genitourinary Genitourinary: UNREMARKABLE - Neurological Neurological: absent: Dizziness, Numbness, Tingling, Vertigo, Weakness Critical Care Progress Note - Nutrition Nutrition: Nutrition Category Date Time Status Consistent Carbohydrate [DIET] Diets 09/12/17 Breakfast Ordered Assessment/Plan - Assessment and Plan (Free Text) Assessment: 82 year old Male with past medical history of falls, BPH, GERD, CHF, IDDM, HTN, CKD, A.fib on Coumadin presenting for acute on chronic subdural hematoma. patient had evacuation and drainage of hematoma yesterday. Will continue to monitor closely. Plan: Neuro: No neurological deficits s/p Subdural hematoma evacuation Neuro checks q1h Hold anticoagulants Fall precaution Aspiration precautions regular diet repeat CT in AM CV: Hx of a.fib on Coumadin as well as HTN and CHF Anticoagulation held INR 1.20 Hemodynamically stable Pulm: Maintain o2 sat greater than 90% Aspiration precaution HOB elevated 45 degrees GI: regular Protonix Nephro: Continue home meds Monitor I's and O's Maintain euvolemia Heme: Anticoagulation held Recheck INR in AM Endo: ISS Maintain euglycemia <Filipe Gann - Last Filed: 09/14/17 16:56> CCU Objective - Vital Signs / Intake & Output Vital Signs (Last 4 hours): Vital Signs Temp Pulse Resp BP Pulse Ox 09/14/17 16:00 98.4 F 76 20 98/54 L 97 09/14/17 14:00 78 09/14/17 13:00 72 121/54 L Intake and Output (Last 8hrs): Intake & Output 09/14/17 09/14/17 09/14/17 06:59 14:59 22:59 Intake Total 1000 Output Total 1050 350 650 Balance -50 -350 -650 Intake: Oral 1000 Output: Urine 1050 350 650 Urine, Voided 1050 350 650 - Medications Active Medications: Active Medications Generic Name Dose Route Start Last Admin Trade Name Freq PRN Reason Stop Dose Admin Codeine Sulfate 30 mg 09/13/17 12:00 09/14/17 16:36 Codeine PO Not Given Q4 [facility] Digoxin 0.125 mg 09/11/17 14:00 09/14/17 13:16 Digoxin PO 0.125 mg 1400 [facility] Administration Furosemide 40 mg 09/11/17 10:00 09/14/17 09:03 Lasix PO 40 mg DAILY [facility] Administration Insulin Human Regular 0 units 09/11/17 07:30 09/14/17 16:46 Humulin R Low SC 2 units ACHS [facility] Administration Protocol Insulin Lispro Protam/Lispro Human 15 units 09/11/17 07:30 Humalog Mix 75/25 SC ACHS [facility] Metoprolol Tartrate 50 mg 09/11/17 10:00 09/14/17 09:03 Lopressor PO 50 mg BID [facility] Administration Non-Formulary Medication 10 mg 09/11/17 10:00 09/14/17 09:02 Alfuzosin Hcl [Uroxatral] PO Not Given DAILY [facility] Non-Formulary Medication 2 mg 09/11/17 10:00 09/14/17 09:03 Doxazosin Mesylate [Cardura Xl] PO Not Given DAILY [facility] Non-Formulary Medication 0.5 mg 09/11/17 10:00 09/14/17 09:03 Dutasteride [Dutasteride] PO Not Given DAILY [facility] Non-Formulary Medication 1 mcg 09/12/17 09:39 09/14/17 10:26 Paricalcitol [Zemplar] PO Not Given DAILY [facility] Oxybutynin Chloride 5 mg 09/11/17 06:00 09/14/17 13:16 Ditropan Tab PO 5 mg Q8 [facility] Administration Pantoprazole Sodium 40 mg 09/11/17 06:00 09/14/17 05:32 Protonix Ec Tab PO 40 mg 0600 [facility] Administration Pregabalin 75 mg 09/11/17 10:00 09/14/17 09:04 Lyrica PO 75 mg DAILY [facility] Administration Tamsulosin HCl 0.4 mg 09/11/17 10:00 09/14/17 09:03 Flomax PO 0.4 mg DAILY [facility] Administration Tramadol HCl 50 mg 09/11/17 08:04 09/12/17 21:56 Ultram PO 50 mg BID PRN Administration Pain, moderate (4-7) - Patient Studies Lab Studies: Lab Studies 09/14/17 09/14/17 09/14/17 Range/Units 06:00 06:00 06:00 WBC 10.6 D (4.5-11.0) 10^3/ul RBC 3.99 (3.5-6.1) 10^6/uL Hgb 11.5 L (14.0-18.0) g/dL Hct 36.0 L (42.0-52.0) % MCV 90.2 (80.0-105.0) fl MCH 28.8 (25.0-35.0) pg MCHC 31.9 (31.0-37.0) g/dl RDW 15.7 H (11.5-14.5) % Plt Count 609 H (120.0-450.0) 10^3/uL MPV 8.2 (7.0-11.0) fl Gran % 76.6 H (50.0-68.0) % Lymph % (Auto) 11.0 L (22.0-35.0) % [place] % (Auto) 10.1 H (1.0-6.0) % Eos % (Auto) 1.7 (1.5-5.0) % Baso % (Auto) 0.6 (0.0-3.0) % Gran # 8.13 H (1.4-6.5) Lymph # (Auto) 1.2 (1.2-3.4) [place] # (Auto) 1.1 H (0.1-0.6) Eos # (Auto) 0.2 (0.0-0.7) Baso # (Auto) 0.06 (0.0-2.0) K/mm3 PT 13.9 H (9.4-12.5) SECONDS INR 1.20 H (0.93-1.08) Sodium 136 (132-148) mmol/L Potassium 4.8 (3.6-5.0) mmol/L Chloride 99 (98-107) mmol/L Carbon Dioxide 28 (21-33) mmol/L Anion Gap 14 (10-20) BUN 20 (7-21) mg/dL Creatinine 1.7 H (0.8-1.5) mg/dl Est GFR ( Amer) 47 Est GFR (Non-Af Amer) 39 POC Glucose (mg/dL) (65-110) mg/dL Random Glucose 280 H (70-110) mg/dL Calcium 9.9 (8.4-10.5) mg/dL Total Bilirubin 0.9 (0.2-1.3) mg/dL AST 31 (17-59) U/L ALT 27 (7-56) U/L Alkaline Phosphatase 89 (38-126) U/L Total Protein 7.2 (5.8-8.3) g/dL Albumin 3.7 (3.0-4.8) g/dL Globulin 3.5 gm/dL Albumin/Globulin Ratio 1.1 (1.1-1.8) 09/13/17 Range/Units 22:20 WBC (4.5-11.0) 10^3/ul RBC (3.5-6.1) 10^6/uL Hgb (14.0-18.0) g/dL Hct (42.0-52.0) % MCV (80.0-105.0) fl MCH (25.0-35.0) pg MCHC (31.0-37.0) g/dl RDW (11.5-14.5) % Plt Count (120.0-450.0) 10^3/uL MPV (7.0-11.0) fl Gran % (50.0-68.0) % Lymph % (Auto) (22.0-35.0) % [place] % (Auto) (1.0-6.0) % Eos % (Auto) (1.5-5.0) % Baso % (Auto) (0.0-3.0) % Gran # (1.4-6.5) Lymph # (Auto) (1.2-3.4) [place] # (Auto) (0.1-0.6) Eos # (Auto) (0.0-0.7) Baso # (Auto) (0.0-2.0) K/mm3 PT (9.4-12.5) SECONDS INR (0.93-1.08) Sodium (132-148) mmol/L Potassium (3.6-5.0) mmol/L Chloride (98-107) mmol/L Carbon Dioxide (21-33) mmol/L Anion Gap (10-20) BUN (7-21) mg/dL Creatinine (0.8-1.5) mg/dl Est GFR ( Amer) Est GFR (Non-Af Amer) POC Glucose (mg/dL) 264 H (65-110) mg/dL Random Glucose (70-110) mg/dL Calcium (8.4-10.5) mg/dL Total Bilirubin (0.2-1.3) mg/dL AST (17-59) U/L ALT (7-56) U/L Alkaline Phosphatase (38-126) U/L Total Protein (5.8-8.3) g/dL Albumin (3.0-4.8) g/dL Globulin gm/dL Albumin/Globulin Ratio (1.1-1.8) Laboratory Results - last 24 hr 09/13/17 09/14/17 09/14/17 22:20 06:00 06:00 WBC 10.6 D RBC 3.99 Hgb 11.5 L Hct 36.0 L MCV 90.2 MCH 28.8 MCHC 31.9 RDW 15.7 H Plt Count 609 H MPV 8.2 Gran % 76.6 H Lymph % (Auto) 11.0 L [place] % (Auto) 10.1 H Eos % (Auto) 1.7 Baso % (Auto) 0.6 Gran # 8.13 H Lymph # (Auto) 1.2 [place] # (Auto) 1.1 H Eos # (Auto) 0.2 Baso # (Auto) 0.06 PT 13.9 H INR 1.20 H Sodium Potassium Chloride Carbon Dioxide Anion Gap BUN Creatinine Est GFR ( Amer) Est GFR (Non-Af Amer) POC Glucose (mg/dL) 264 H Random Glucose Calcium Total Bilirubin AST ALT Alkaline Phosphatase Total Protein Albumin Globulin Albumin/Globulin Ratio 09/14/17 06:00 WBC RBC Hgb Hct MCV MCH MCHC RDW Plt Count MPV Gran % Lymph % (Auto) [place] % (Auto) Eos % (Auto) Baso % (Auto) Gran # Lymph # (Auto) [place] # (Auto) Eos # (Auto) Baso # (Auto) PT INR Sodium 136 Potassium 4.8 Chloride 99 Carbon Dioxide 28 Anion Gap 14 BUN 20 Creatinine 1.7 H Est GFR ( Amer) 47 Est GFR (Non-Af Amer) 39 POC Glucose (mg/dL) Random Glucose 280 H Calcium 9.9 Total Bilirubin 0.9 AST 31 ALT 27 Alkaline Phosphatase 89 Total Protein 7.2 Albumin 3.7 Globulin 3.5 Albumin/Globulin Ratio 1.1 Critical Care Progress Note - Nutrition Nutrition: Nutrition Category Date Time Status Consistent Carbohydrate [DIET] Diets 09/12/17 Breakfast Ordered Attending/Attestation - Attestation I have personally seen and examined this patient.: Yes I have fully participated in the care of the patient.: Yes I have reviewed all pertinent clinical information: Yes Notes (Text): 09/14/17 16:54 82 yo male with s/p acute SDH evacuation. drain left in SD space. alert, awake and oritented x 3, no new neurologic deficit. OOB to chair, advance diet as tolerated once cleared by nsx, IS, chest PT, PT, pulmonary toilet. ccm time 40 min
--- NOTE | 2017-09-15 01:26 | PN ---
DATE: 09/14/2017 SUBJECTIVE: The patient is seen sitting in a chair in the CCU. He underwent craniotomy and drainage of a subdural hematoma yesterday. A drain remains in place. He denies any complaints at present. CURRENT MEDICATIONS: Include Uroxatral, codeine, digoxin 0.125 mg daily, Ditropan, Cardura, Flomax, insulin, Lasix 40 mg daily, metoprolol 50 mg b.i.d., Lyrica, Protonix and Ultram. OBJECTIVE: GENERAL: He is an elderly man who appears comfortable, sitting in a chair. VITAL SIGNS: His blood pressure is 90/50 with a pulse of 86, in atrial fibrillation, respirations are 16. He is afebrile. HEENT: A craniotomy dressing and drain is present on the right side. NECK: No JVD. CHEST: Clear to auscultation and percussion. HEART: Irregular regular rhythm with a systolic murmur at left sternal border. ABDOMEN: Soft, nontender, normoactive bowel sounds. EXTREMITIES: No edema. DIAGNOSTIC DATA: White count 10.6, hemoglobin and hematocrit are 11.5 and 36.0 with a platelet count 609,000. INR is 1.2, BUN and creatinine are 20 and 1.7 and glucose 240. IMPRESSION: 1. Acute on chronic subdural hematoma status post evacuation yesterday, now has chronic atrial fibrillation with controlled rate, currently off anticoagulation obviously because of the recent subdural. 2. Thrombocytosis. 3. Mild dementia. 4. Hypertension, diabetes. 5. Rest of problems as noted. RECOMMENDATIONS: His current rate control therapy for atrial fibrillation will continue. Obviously, anticoagulation is contraindicated at present time. Gradual resumption of activities and ambulation is advised. We will be happy to follow and make further recommendations as appropriate. Josue Lim MD
[2017-09-15] MEDS: Pantoprazole 40 mg EC Tab PO SCH (05:30)
[2017-09-15 07:28] LABS: BASO # 0.05 K/mm3 (0.0-2.0); BASO % 0.5 % (0.0-3.0); EOS # 0.5 (0.0-0.7); EOS % 4.7 % (1.5-5.0); GRAN # 6.67 (1.4-6.5); GRAN % 69.5 % (50.0-68.0); LYMPH # 1.3 (1.2-3.4); LYMPH % 13.8 % (22.0-35.0); MEAN CELL VOLUME 88.9 fl (80.0-105.0); MEAN CORPUSCULAR HGB CONC 32.6 g/dl (31.0-37.0); MEAN PLATELET VOLUME 8.6 fl (7.0-11.0); MONO # 1.1 (0.1-0.6); MONO % 11.5 % (1.0-6.0); RBC 4.14 10^6/uL (3.5-6.1); RED CELL DISTRIBUTION WIDTH 15.7 % (11.5-14.5); WHITE BLOOD COUNT 9.6 10^3/ul (4.5-11.0)
--- NOTE | 2017-09-15 07:49 | CP.PCM.PN ---
Subjective - Date & Time of Evaluation Date of Evaluation: 09/15/17 Time of Evaluation: 07:00 - Subjective Subjective: Stable in CCU. No CP or SOB. S/P drainage SDH 09/13 V/S noted. AF. PE: Lungs: clear Cor.: irreg S1S2 Abd.: soft Ext.: no edema Neuro.: alert I/O= 50/800 recorded Labs pending Echo done: NL LV fx. Mod. TR Objective - Vital Signs/Intake and Output Vital Signs (last 24 hours): Temp Pulse Resp BP Pulse Ox 98 F 83 25 H 117/68 95 09/15/17 04:00 09/15/17 06:00 09/15/17 05:50 09/15/17 05:00 09/15/17 05:50 Intake and Output: 09/15/17 09/15/17 06:59 18:59 Intake Total 50 Output Total 800 Balance -750 - Medications Medications: Current Medications Codeine Sulfate (Codeine) 30 mg PO Q4 [facility] Last Admin: 09/15/17 04:19 Dose: Not Given Digoxin (Digoxin) 0.125 mg PO 1400 [facility] Last Admin: 09/14/17 13:16 Dose: 0.125 mg Furosemide (Lasix) 40 mg PO DAILY [facility] Last Admin: 09/14/17 09:03 Dose: 40 mg Insulin Human Regular (Humulin R Low) 0 units SC [facility] PRN Reason: Protocol Last Admin: 09/14/17 22:00 Dose: 2 units Insulin Lispro Protam/Lispro Human (Humalog Mix 75/25) 15 units SC [facility] Metoprolol Tartrate (Lopressor) 50 mg PO BID [facility] Last Admin: 09/14/17 17:15 Dose: Not Given Non-Formulary Medication (Alfuzosin Hcl [Uroxatral]) 10 mg PO DAILY [facility] Last Admin: 09/14/17 09:02 Dose: Not Given Non-Formulary Medication (Doxazosin Mesylate [Cardura Xl]) 2 mg PO DAILY [facility] Last Admin: 09/14/17 09:03 Dose: Not Given Non-Formulary Medication (Dutasteride [Dutasteride]) 0.5 mg PO DAILY [facility] Last Admin: 09/14/17 09:03 Dose: Not Given Non-Formulary Medication (Paricalcitol [Zemplar]) 1 mcg PO DAILY [facility] Last Admin: 09/14/17 10:26 Dose: Not Given Oxybutynin Chloride (Ditropan Tab) 5 mg PO Q8 [facility] Last Admin: 09/15/17 05:30 Dose: 5 mg Pantoprazole Sodium (Protonix Ec Tab) 40 mg PO 0600 [facility] Last Admin: 09/15/17 05:30 Dose: 40 mg Pregabalin (Lyrica) 75 mg PO DAILY [facility] Last Admin: 09/14/17 09:04 Dose: 75 mg Tamsulosin HCl (Flomax) 0.4 mg PO DAILY [facility] Last Admin: 09/14/17 09:03 Dose: 0.4 mg Tramadol HCl (Ultram) 50 mg PO BID PRN PRN Reason: Pain, moderate (4-7) Last Admin: 09/12/17 21:56 Dose: 50 mg - Labs Labs: 09/15/17 07:10 09/14/17 06:00 PT 13.9 SECONDS (9.4-12.5) H 09/14/17 06:00 INR 1.20 (0.93-1.08) H 09/14/17 06:00 APTT 40.0 Seconds (25.1-36.5) H 09/10/17 19:30 Assessment and Plan - Assessment and Plan (Free Text) Assessment: Weak left side, resolved SDH, right brain, with midline shift, S/P drainage 09/13 AF on warfarin, therapeutic level initially> reversed Thrombocytosis/Platelet dysfunction Anemia Dementia, mild HBP Diabetes CKD DJD BPH Cataracts/Glaucoma COPD/Former Smoker Left TKR Plan: As per Neuro., Neurosurgery, Dr. Carroll, Dr. Echols, Intensivists Continue Dig. and metoprolol for rate control No A/C Monitor: Neuro. signs, sats., labs, etc
[2017-09-15] MEDS: Insulin Reg-LOW-Coverage SC SCH ×4 (08:03→22:39)
[2017-09-15 08:18] LABS: ALB/GLOB RATIO 1.1 (1.1-1.8); ALBUMIN 3.8 g/dL (3.0-4.8); CALCIUM 9.8 mg/dL (8.4-10.5)
--- NOTE | 2017-09-15 09:38 | CT ---
PROCEDURE: CT HEAD WITHOUT CONTRAST. HISTORY: sdh COMPARISON: 09/12/2017 TECHNIQUE: Axial computed tomography images were obtained through the head/brain without intravenous contrast. Radiation dose: Total exam DLP = 873.41 mGy-cm. This CT exam was performed using one or more of the following dose reduction techniques: Automated exposure control, adjustment of the mA and/or kV according to patient size, and/or use of iterative reconstruction technique. FINDINGS: HEMORRHAGE: The patient is status post right frontal craniotomy for evacuation of subdural hemorrhage. A drain is noted. There is residual acute on chronic subdural hemorrhage over the right frontal/lateral convexity. There is pneumocephalus. There is an atypical extra-axial collection in the right frontal region in retrospect unchanged from prior examination except for decrease in attenuation consistent with aging of blood products. This shows mass-effect upon the right frontal lobe with sulcal effacement. This may be a loculation of the subdural collection. There is no evidence of subarachnoid or intraparenchymal hemorrhage. There is no other intracranial hemorrhage identified. BRAIN: No evidence of acute infarct. VENTRICLES: No hydrocephalus. 3 mm midline shift towards the left. Basilar cisterns are preserved. CALVARIUM: High right frontal craniotomy. PARANASAL SINUSES: Unremarkable as visualized. No significant inflammatory changes. MASTOID AIR CELLS: Unremarkable as visualized. No inflammatory changes. OTHER FINDINGS: None. IMPRESSION: Status post right frontal craniotomy for evacuation of acute on chronic subdural hemorrhage. Decreased size of right frontal/lateral convexity acute on chronic subdural hemorrhage. There is increasing cons acuity of an inferior right frontal extra-axial collection with mass effect upon the right frontal lobe, most likely a localized/loculated extra-axial collection related to the subdural hemorrhage above. 3 mm midline shift towards the left persists. No downward herniation. No parenchymal or subarachnoid hemorrhage appreciated. Postoperative pneumocephalus. Extra-axial drain in place in the right frontal region.
--- NOTE | 2017-09-15 10:57 | CP.CCUPN ---
<Shad Norris - Last Filed: 09/15/17 10:54> CCU Subjective - Physician Review Subjective (Free Text): Patient seen and evaluated bedside. No acute events overnight. Patient states he is feeling fine today. Does not complain of any numbness or tingling. No other complaints at this time. 09/15/17 10:54 CCU Objective - Vital Signs / Intake & Output Vital Signs (Last 4 hours): Vital Signs Pulse BP 09/15/17 09:55 91 H 115/69 Intake and Output (Last 8hrs): Intake & Output 09/14/17 09/15/17 09/15/17 22:59 06:59 14:59 Intake Total 50 Output Total 650 800 Balance -650 -750 Intake: Oral 50 Output: Urine 650 800 Urine, Voided 650 800 Other: # Bowel Movements 0 - Physical Exam Head: Positive for: Atraumatic, Normocephalic, Other (drainage apparatus in place) Pupils: Positive for: PERRL Extroacular Muscles: Positive for: EOMI Conjunctiva: Positive for: Normal Mouth: Positive for: Moist Mucous Membranes Neck: Positive for: Normal Range of Motion Respiratory/Chest: Positive for: Clear to Auscultation, Good Air Exchange. Negative for: Respiratory Distress, Accessory Muscle Use Cardiovascular: Positive for: Regular Rate and Rhythm, Normal S1, S2. Negative for: Murmurs Abdomen: Positive for: Normal Bowel Sounds. Negative for: Tenderness, Distention, Peritoneal Signs Back: Positive for: GCS, CN, SP Upper Extremity: Negative for: Cyanosis, Edema, Tenderness, Swelling Lower Extremity: Negative for: Edema, CALF TENDERNESS, Tenderness, Swelling Neurological: Positive for: CN II-XII Intact, Motor Func Grossly Intact Skin: Positive for: Warm, Dry, Normal Color. Negative for: Rashes Lymphatic: Positive for: OX3, NI, NC Psychiatric: Positive for: Alert, Oriented x 3, Normal Insight, Normal Concentration - Medications Active Medications: Active Medications Generic Name Dose Route Start Last Admin Trade Name Freq PRN Reason Stop Dose Admin Codeine Sulfate 30 mg 09/13/17 12:00 09/15/17 09:56 Codeine PO 30 mg Q4 [facility] Administration Digoxin 0.125 mg 09/11/17 14:00 09/14/17 13:16 Digoxin PO 0.125 mg 1400 [facility] Administration Furosemide 40 mg 09/11/17 10:00 09/15/17 09:55 Lasix PO 40 mg DAILY [facility] Administration Insulin Human Regular 0 units 09/11/17 07:30 09/15/17 08:03 Humulin R Low SC 3 units [facility] Administration Protocol Insulin Lispro Protam/Lispro Human 15 units 09/11/17 07:30 Humalog Mix 75/25 SC [facility] Metoprolol Tartrate 50 mg 09/11/17 10:00 09/15/17 09:55 Lopressor PO 50 mg BID [facility] Administration Oxybutynin Chloride 5 mg 09/11/17 06:00 09/15/17 05:30 Ditropan Tab PO 5 mg Q8 [facility] Administration Pantoprazole Sodium 40 mg 09/11/17 06:00 09/15/17 05:30 Protonix Ec Tab PO 40 mg 0600 [facility] Administration Pregabalin 75 mg 09/11/17 10:00 09/15/17 09:55 Lyrica PO 75 mg DAILY [facility] Administration Tamsulosin HCl 0.4 mg 09/11/17 10:00 09/15/17 09:55 Flomax PO 0.4 mg DAILY [facility] Administration Tramadol HCl 50 mg 09/11/17 08:04 09/12/17 21:56 Ultram PO 50 mg BID PRN Administration Pain, moderate (4-7) - Patient Studies Lab Studies: Lab Studies 09/15/17 09/15/17 09/15/17 Range/Units 07:46 07:10 07:10 WBC 9.6 (4.5-11.0) 10^3/ul RBC 4.14 (3.5-6.1) 10^6/uL Hgb 12.0 L (14.0-18.0) g/dL Hct 36.8 L (42.0-52.0) % MCV 88.9 (80.0-105.0) fl MCH 29.0 (25.0-35.0) pg MCHC 32.6 (31.0-37.0) g/dl RDW 15.7 H (11.5-14.5) % Plt Count 543 H (120.0-450.0) 10^3/uL MPV 8.6 (7.0-11.0) fl Gran % 69.5 H (50.0-68.0) % Lymph % (Auto) 13.8 L (22.0-35.0) % [place] % (Auto) 11.5 H (1.0-6.0) % Eos % (Auto) 4.7 (1.5-5.0) % Baso % (Auto) 0.5 (0.0-3.0) % Gran # 6.67 H (1.4-6.5) Lymph # (Auto) 1.3 (1.2-3.4) [place] # (Auto) 1.1 H (0.1-0.6) Eos # (Auto) 0.5 (0.0-0.7) Baso # (Auto) 0.05 (0.0-2.0) K/mm3 Sodium 135 (132-148) mmol/L Potassium 4.4 (3.6-5.0) mmol/L Chloride 96 L (98-107) mmol/L Carbon Dioxide 29 (21-33) mmol/L Anion Gap 14 (10-20) BUN 24 H (7-21) mg/dL Creatinine 1.8 H (0.8-1.5) mg/dl Est GFR ( Amer) 44 Est GFR (Non-Af Amer) 36 POC Glucose (mg/dL) 270 H (65-110) mg/dL Random Glucose 312 H* (70-110) mg/dL Calcium 9.8 (8.4-10.5) mg/dL Total Bilirubin 0.9 (0.2-1.3) mg/dL AST 32 (17-59) U/L ALT 28 (7-56) U/L Alkaline Phosphatase 92 (38-126) U/L Total Protein 7.1 (5.8-8.3) g/dL Albumin 3.8 (3.0-4.8) g/dL Globulin 3.3 gm/dL Albumin/Globulin Ratio 1.1 (1.1-1.8) 09/14/17 09/14/17 09/14/17 Range/Units 21:39 16:20 11:30 WBC (4.5-11.0) 10^3/ul RBC (3.5-6.1) 10^6/uL Hgb (14.0-18.0) g/dL Hct (42.0-52.0) % MCV (80.0-105.0) fl MCH (25.0-35.0) pg MCHC (31.0-37.0) g/dl RDW (11.5-14.5) % Plt Count (120.0-450.0) 10^3/uL MPV (7.0-11.0) fl Gran % (50.0-68.0) % Lymph % (Auto) (22.0-35.0) % [place] % (Auto) (1.0-6.0) % Eos % (Auto) (1.5-5.0) % Baso % (Auto) (0.0-3.0) % Gran # (1.4-6.5) Lymph # (Auto) (1.2-3.4) [place] # (Auto) (0.1-0.6) Eos # (Auto) (0.0-0.7) Baso # (Auto) (0.0-2.0) K/mm3 Sodium (132-148) mmol/L Potassium (3.6-5.0) mmol/L Chloride (98-107) mmol/L Carbon Dioxide (21-33) mmol/L Anion Gap (10-20) BUN (7-21) mg/dL Creatinine (0.8-1.5) mg/dl Est GFR ( Amer) Est GFR (Non-Af Amer) POC Glucose (mg/dL) 309 H 223 H 271 H (65-110) mg/dL Random Glucose (70-110) mg/dL Calcium (8.4-10.5) mg/dL Total Bilirubin (0.2-1.3) mg/dL AST (17-59) U/L ALT (7-56) U/L Alkaline Phosphatase (38-126) U/L Total Protein (5.8-8.3) g/dL Albumin (3.0-4.8) g/dL Globulin gm/dL Albumin/Globulin Ratio (1.1-1.8) // Range/Units 07:39 WBC (4.5-11.0) 10^3/ul RBC (3.5-6.1) 10^6/uL Hgb (14.0-18.0) g/dL Hct (42.0-52.0) % MCV (80.0-105.0) fl MCH (25.0-35.0) pg MCHC (31.0-37.0) g/dl RDW (11.5-14.5) % Plt Count (120.0-450.0) 10^3/uL MPV (7.0-11.0) fl Gran % (50.0-68.0) % Lymph % (Auto) (22.0-35.0) % [place] % (Auto) (1.0-6.0) % Eos % (Auto) (1.5-5.0) % Baso % (Auto) (0.0-3.0) % Gran # (1.4-6.5) Lymph # (Auto) (1.2-3.4) [place] # (Auto) (0.1-0.6) Eos # (Auto) (0.0-0.7) Baso # (Auto) (0.0-2.0) K/mm3 Sodium (132-148) mmol/L Potassium (3.6-5.0) mmol/L Chloride (98-107) mmol/L Carbon Dioxide (21-33) mmol/L Anion Gap (10-20) BUN (7-21) mg/dL Creatinine (0.8-1.5) mg/dl Est GFR ( Amer) Est GFR (Non-Af Amer) POC Glucose (mg/dL) 240 H (65-110) mg/dL Random Glucose (70-110) mg/dL Calcium (8.4-10.5) mg/dL Total Bilirubin (0.2-1.3) mg/dL AST (17-59) U/L ALT (7-56) U/L Alkaline Phosphatase (38-126) U/L Total Protein (5.8-8.3) g/dL Albumin (3.0-4.8) g/dL Globulin gm/dL Albumin/Globulin Ratio (1.1-1.8) Laboratory Results - last 24 hr 09/14/17 09/14/17 09/14/17 07:39 11:30 16:20 WBC RBC Hgb Hct MCV MCH MCHC RDW Plt Count MPV Gran % Lymph % (Auto) [place] % (Auto) Eos % (Auto) Baso % (Auto) Gran # Lymph # (Auto) [place] # (Auto) Eos # (Auto) Baso # (Auto) Sodium Potassium Chloride Carbon Dioxide Anion Gap BUN Creatinine Est GFR ( Amer) Est GFR (Non-Af Amer) POC Glucose (mg/dL) 240 H 271 H 223 H Random Glucose Calcium Total Bilirubin AST ALT Alkaline Phosphatase Total Protein Albumin Globulin Albumin/Globulin Ratio 09/14/17 09/15/17 09/15/17 21:39 07:10 07:10 WBC 9.6 RBC 4.14 Hgb 12.0 L Hct 36.8 L MCV 88.9 MCH 29.0 MCHC 32.6 RDW 15.7 H Plt Count 543 H MPV 8.6 Gran % 69.5 H Lymph % (Auto) 13.8 L [place] % (Auto) 11.5 H Eos % (Auto) 4.7 Baso % (Auto) 0.5 Gran # 6.67 H Lymph # (Auto) 1.3 [place] # (Auto) 1.1 H Eos # (Auto) 0.5 Baso # (Auto) 0.05 Sodium 135 Potassium 4.4 Chloride 96 L Carbon Dioxide 29 Anion Gap 14 BUN 24 H Creatinine 1.8 H Est GFR ( Amer) 44 Est GFR (Non-Af Amer) 36 POC Glucose (mg/dL) 309 H Random Glucose 312 H* Calcium 9.8 Total Bilirubin 0.9 AST 32 ALT 28 Alkaline Phosphatase 92 Total Protein 7.1 Albumin 3.8 Globulin 3.3 Albumin/Globulin Ratio 1.1 09/15/17 07:46 WBC RBC Hgb Hct MCV MCH MCHC RDW Plt Count MPV Gran % Lymph % (Auto) [place] % (Auto) Eos % (Auto) Baso % (Auto) Gran # Lymph # (Auto) [place] # (Auto) Eos # (Auto) Baso # (Auto) Sodium Potassium Chloride Carbon Dioxide Anion Gap BUN Creatinine Est GFR ( Amer) Est GFR (Non-Af Amer) POC Glucose (mg/dL) 270 H Random Glucose Calcium Total Bilirubin AST ALT Alkaline Phosphatase Total Protein Albumin Globulin Albumin/Globulin Ratio Fingerstick Blood Sugar Results: 287 Critical Care Progress Note - Nutrition Nutrition: Nutrition Category Date Time Status Consistent Carbohydrate [DIET] Diets 09/12/17 Breakfast Ordered Assessment/Plan - Assessment and Plan (Free Text) Assessment: 82 year old Male with past medical history of falls, BPH, GERD, CHF, IDDM, HTN, CKD, A.chandni on Coumadin presenting for acute on chronic subdural hematoma. patient had evacuation and drainage of hematoma. Will continue to monitor closely. Plan: Neuro: No neurological deficits s/p Subdural hematoma evacuation Neuro checks q1h Hold anticoagulants Fall precaution Aspiration precautions regular diet repeat CT pending read will follow recs per neurosurgeryJoe CV: Hx of mohinder on Coumadin as well as HTN and CHF Anticoagulation held INR pending Hemodynamically stable Pulm: Maintain o2 sat greater than 92% Aspiration precaution HOB elevated 45 degrees GI: regular diet Protonix Nephro: Continue home meds Monitor I's and O's Maintain euvolemia Heme: Anticoagulation held INR pending Endo: ISS Maintain euglycemia <Magdy Daley - Last Filed: 09/15/17 12:57> CCU Objective - Vital Signs / Intake & Output Vital Signs (Last 4 hours): Vital Signs Pulse Resp BP Pulse Ox 09/15/17 11:20 91 H 17 97 09/15/17 11:10 81 13 96 09/15/17 11:02 82 30 H 103/65 97 09/15/17 11:00 91 H 94 L 09/15/17 10:50 88 95 09/15/17 10:40 90 23 95 09/15/17 10:30 87 26 H 95 09/15/17 10:20 90 21 98 09/15/17 10:10 90 55 H 96 09/15/17 10:00 82 23 100/60 95 09/15/17 09:55 91 H 115/69 09/15/17 09:50 87 27 H 96 09/15/17 09:40 88 26 H 95 09/15/17 09:30 97 H 31 H 96 09/15/17 09:27 113 H 43 H 09/15/17 09:10 94 H 28 H 95 09/15/17 09:00 118/69 09/15/17 08:59 91 H 15 95 Intake and Output (Last 8hrs): Intake & Output 09/14/17 09/15/17 09/15/17 22:59 06:59 14:59 Intake Total 50 Output Total 650 800 Balance -650 -750 Intake: Oral 50 Output: Urine 650 800 Urine, Voided 650 800 Other: # Bowel Movements 0 - Medications Active Medications: Active Medications Generic Name Dose Route Start Last Admin Trade Name Freq PRN Reason Stop Dose Admin Codeine Sulfate 30 mg 09/13/17 12:00 09/15/17 09:56 Codeine PO 30 mg Q4 [facility] Administration Digoxin 0.125 mg 09/11/17 14:00 09/14/17 13:16 Digoxin PO 0.125 mg 1400 [facility] Administration Furosemide 40 mg 09/11/17 10:00 09/15/17 09:55 Lasix PO 40 mg DAILY [facility] Administration Insulin Human Regular 0 units 09/11/17 07:30 09/15/17 11:53 Humulin R Low SC 3 units [facility] Administration Protocol Insulin Lispro Protam/Lispro Human 15 units 09/11/17 07:30 Humalog Mix 75/25 SC [facility] Metoprolol Tartrate 50 mg 09/11/17 10:00 09/15/17 09:55 Lopressor PO 50 mg BID [facility] Administration Oxybutynin Chloride 5 mg 09/11/17 06:00 09/15/17 05:30 Ditropan Tab PO 5 mg Q8 [facility] Administration Pantoprazole Sodium 40 mg 09/11/17 06:00 09/15/17 05:30 Protonix Ec Tab PO 40 mg 0600 [facility] Administration Pregabalin 75 mg 09/11/17 10:00 09/15/17 09:55 Lyrica PO 75 mg DAILY [facility] Administration Tamsulosin HCl 0.4 mg 09/11/17 10:00 09/15/17 09:55 Flomax PO 0.4 mg DAILY [facility] Administration Tramadol HCl 50 mg 09/11/17 08:04 09/12/17 21:56 Ultram PO 50 mg BID PRN Administration Pain, moderate (4-7) - Patient Studies Lab Studies: Lab Studies 09/15/17 09/15/17 09/15/17 Range/Units 07:46 07:10 07:10 WBC 9.6 (4.5-11.0) 10^3/ul RBC 4.14 (3.5-6.1) 10^6/uL Hgb 12.0 L (14.0-18.0) g/dL Hct 36.8 L (42.0-52.0) % MCV 88.9 (80.0-105.0) fl MCH 29.0 (25.0-35.0) pg MCHC 32.6 (31.0-37.0) g/dl RDW 15.7 H (11.5-14.5) % Plt Count 543 H (120.0-450.0) 10^3/uL MPV 8.6 (7.0-11.0) fl Gran % 69.5 H (50.0-68.0) % Lymph % (Auto) 13.8 L (22.0-35.0) % [place] % (Auto) 11.5 H (1.0-6.0) % Eos % (Auto) 4.7 (1.5-5.0) % Baso % (Auto) 0.5 (0.0-3.0) % Gran # 6.67 H (1.4-6.5) Lymph # (Auto) 1.3 (1.2-3.4) [place] # (Auto) 1.1 H (0.1-0.6) Eos # (Auto) 0.5 (0.0-0.7) Baso # (Auto) 0.05 (0.0-2.0) K/mm3 Sodium 135 (132-148) mmol/L Potassium 4.4 (3.6-5.0) mmol/L Chloride 96 L (98-107) mmol/L Carbon Dioxide 29 (21-33) mmol/L Anion Gap 14 (10-20) BUN 24 H (7-21) mg/dL Creatinine 1.8 H (0.8-1.5) mg/dl Est GFR ( Amer) 44 Est GFR (Non-Af Amer) 36 POC Glucose (mg/dL) 270 H (65-110) mg/dL Random Glucose 312 H* (70-110) mg/dL Calcium 9.8 (8.4-10.5) mg/dL Total Bilirubin 0.9 (0.2-1.3) mg/dL AST 32 (17-59) U/L ALT 28 (7-56) U/L Alkaline Phosphatase 92 (38-126) U/L Total Protein 7.1 (5.8-8.3) g/dL Albumin 3.8 (3.0-4.8) g/dL Globulin 3.3 gm/dL Albumin/Globulin Ratio 1.1 (1.1-1.8) 09/14/17 09/14/17 09/14/17 Range/Units 21:39 16:20 11:30 WBC (4.5-11.0) 10^3/ul RBC (3.5-6.1) 10^6/uL Hgb (14.0-18.0) g/dL Hct (42.0-52.0) % MCV (80.0-105.0) fl MCH (25.0-35.0) pg MCHC (31.0-37.0) g/dl RDW (11.5-14.5) % Plt Count (120.0-450.0) 10^3/uL MPV (7.0-11.0) fl Gran % (50.0-68.0) % Lymph % (Auto) (22.0-35.0) % [place] % (Auto) (1.0-6.0) % Eos % (Auto) (1.5-5.0) % Baso % (Auto) (0.0-3.0) % Gran # (1.4-6.5) Lymph # (Auto) (1.2-3.4) [place] # (Auto) (0.1-0.6) Eos # (Auto) (0.0-0.7) Baso # (Auto) (0.0-2.0) K/mm3 Sodium (132-148) mmol/L Potassium (3.6-5.0) mmol/L Chloride (98-107) mmol/L Carbon Dioxide (21-33) mmol/L Anion Gap (10-20) BUN (7-21) mg/dL Creatinine (0.8-1.5) mg/dl Est GFR ( Amer) Est GFR (Non-Af Amer) POC Glucose (mg/dL) 309 H 223 H 271 H (65-110) mg/dL Random Glucose (70-110) mg/dL Calcium (8.4-10.5) mg/dL Total Bilirubin (0.2-1.3) mg/dL AST (17-59) U/L ALT (7-56) U/L Alkaline Phosphatase (38-126) U/L Total Protein (5.8-8.3) g/dL Albumin (3.0-4.8) g/dL Globulin gm/dL Albumin/Globulin Ratio (1.1-1.8) 09/14/17 Range/Units 07:39 WBC (4.5-11.0) 10^3/ul RBC (3.5-6.1) 10^6/uL Hgb (14.0-18.0) g/dL Hct (42.0-52.0) % MCV (80.0-105.0) fl MCH (25.0-35.0) pg MCHC (31.0-37.0) g/dl RDW (11.5-14.5) % Plt Count (120.0-450.0) 10^3/uL MPV (7.0-11.0) fl Gran % (50.0-68.0) % Lymph % (Auto) (22.0-35.0) % [place] % (Auto) (1.0-6.0) % Eos % (Auto) (1.5-5.0) % Baso % (Auto) (0.0-3.0) % Gran # (1.4-6.5) Lymph # (Auto) (1.2-3.4) [place] # (Auto) (0.1-0.6) Eos # (Auto) (0.0-0.7) Baso # (Auto) (0.0-2.0) K/mm3 Sodium (132-148) mmol/L Potassium (3.6-5.0) mmol/L Chloride (98-107) mmol/L Carbon Dioxide (21-33) mmol/L Anion Gap (10-20) BUN (7-21) mg/dL Creatinine (0.8-1.5) mg/dl Est GFR ( Amer) Est GFR (Non-Af Amer) POC Glucose (mg/dL) 240 H (65-110) mg/dL Random Glucose (70-110) mg/dL Calcium (8.4-10.5) mg/dL Total Bilirubin (0.2-1.3) mg/dL AST (17-59) U/L ALT (7-56) U/L Alkaline Phosphatase (38-126) U/L Total Protein (5.8-8.3) g/dL Albumin (3.0-4.8) g/dL Globulin gm/dL Albumin/Globulin Ratio (1.1-1.8) Laboratory Results - last 24 hr 09/14/17 09/14/17 09/14/17 07:39 11:30 16:20 WBC RBC Hgb Hct MCV MCH MCHC RDW Plt Count MPV Gran % Lymph % (Auto) [place] % (Auto) Eos % (Auto) Baso % (Auto) Gran # Lymph # (Auto) [place] # (Auto) Eos # (Auto) Baso # (Auto) Sodium Potassium Chloride Carbon Dioxide Anion Gap BUN Creatinine Est GFR ( Amer) Est GFR (Non-Af Amer) POC Glucose (mg/dL) 240 H 271 H 223 H Random Glucose Calcium Total Bilirubin AST ALT Alkaline Phosphatase Total Protein Albumin Globulin Albumin/Globulin Ratio 09/14/17 09/15/17 09/15/17 21:39 07:10 07:10 WBC 9.6 RBC 4.14 Hgb 12.0 L Hct 36.8 L MCV 88.9 MCH 29.0 MCHC 32.6 RDW 15.7 H Plt Count 543 H MPV 8.6 Gran % 69.5 H Lymph % (Auto) 13.8 L [place] % (Auto) 11.5 H Eos % (Auto) 4.7 Baso % (Auto) 0.5 Gran # 6.67 H Lymph # (Auto) 1.3 [place] # (Auto) 1.1 H Eos # (Auto) 0.5 Baso # (Auto) 0.05 Sodium 135 Potassium 4.4 Chloride 96 L Carbon Dioxide 29 Anion Gap 14 BUN 24 H Creatinine 1.8 H Est GFR ( Amer) 44 Est GFR (Non-Af Amer) 36 POC Glucose (mg/dL) 309 H Random Glucose 312 H* Calcium 9.8 Total Bilirubin 0.9 AST 32 ALT 28 Alkaline Phosphatase 92 Total Protein 7.1 Albumin 3.8 Globulin 3.3 Albumin/Globulin Ratio 1.1 09/15/17 07:46 WBC RBC Hgb Hct MCV MCH MCHC RDW Plt Count MPV Gran % Lymph % (Auto) [place] % (Auto) Eos % (Auto) Baso % (Auto) Gran # Lymph # (Auto) [place] # (Auto) Eos # (Auto) Baso # (Auto) Sodium Potassium Chloride Carbon Dioxide Anion Gap BUN Creatinine Est GFR ( Amer) Est GFR (Non-Af Amer) POC Glucose (mg/dL) 270 H Random Glucose Calcium Total Bilirubin AST ALT Alkaline Phosphatase Total Protein Albumin Globulin Albumin/Globulin Ratio Critical Care Progress Note - Nutrition Nutrition: Nutrition Category Date Time Status Consistent Carbohydrate [DIET] Diets 09/12/17 Breakfast Ordered Assessment/Plan - Assessment and Plan (Free Text) Plan: Patient seen and examined, on rounds with resident, agree with note with following additions/exceptions: Patient is 82 year old Male with past medical history of falls, BPH, GERD, CHF, IDDM, HTN, CKD, A.fib on Coumadin presenting for acute on chronic subdural hematoma s/p evacuation in the OR with neurosurgery s/p drain. Repeat CTH done this morning, noted. Pt awaiting drain removal by NSG. SDH Afib IDDM CHF BPH Recommend: - supp o2 as needed - follow up cultures - BP control - follow up NSG - resume Insulin 75/25 15uBID - FS control - hold A/C for now, will d/w NSG - GI ppx - DVT ppx, SCDs - Monitor in MICU
[2017-09-15] MEDS: Insulin Lispro (humaLOG) MIX 75/25(10 ml) SC SCH ×3 (11:45→22:52)
[2017-09-15] MEDS ORDERED: Bacitracin Ointment 30 GM TUBE TOP ONE (13:11)
--- NOTE | 2017-09-15 13:19 | CP.PCM.PN ---
Subjective - Date & Time of Evaluation Date of Evaluation: 09/15/17 Time of Evaluation: 13:14 - Subjective Subjective: Mr. Chi was seen and examined at the bedside in ICU. He is alert, oriented with episode of forgetfulness. He is able to answer all questions. He denies any headache, dizziness, lightheadedness, blurred vision, nausea, or vomiting. He has minimal left sided weakness. He has the right parietal area dressing with a catheter draining to a minimal bloody drainage. CTH yhis morning showed s/p right frontal craniotomy for evacuation of acute on chronic subdural hemorrhage. Decrease size of right frontal/lateral convexity acute on chronic subdural hemorrhage. There is an increasing cons acuity of an inferior right frontal extra-axial collection with mass effect upon the right frontal lobe, most likely a localized/ loculated extra-axial collection related to subdural hemorrhage. There is 3 mm midline shift toward the left. No downward herniation. No parenchymal or subdural hemorrhage appreciated. Postoperative pneumocephalus. Extra drain in place in the right frontal region. There was no untoward events overnight. Objective - Vital Signs/Intake and Output Vital Signs (last 24 hours): Temp Pulse Resp BP Pulse Ox 98 F 91 H 17 103/65 97 09/15/17 04:00 09/15/17 11:20 09/15/17 11:20 09/15/17 11:02 09/15/17 11:20 Intake and Output: 09/15/17 09/15/17 06:59 18:59 Intake Total 50 Output Total 800 Balance -750 - Medications Medications: Current Medications Codeine Sulfate (Codeine) 30 mg PO Q4 [facility] Last Admin: 09/15/17 09:56 Dose: 30 mg Digoxin (Digoxin) 0.125 mg PO 1400 [facility] Last Admin: 09/14/17 13:16 Dose: 0.125 mg Furosemide (Lasix) 40 mg PO DAILY [facility] Last Admin: 09/15/17 09:55 Dose: 40 mg Insulin Human Regular (Humulin R Low) 0 units SC [facility] PRN Reason: Protocol Last Admin: 09/15/17 11:53 Dose: 3 units Insulin Lispro Protam/Lispro Human (Humalog Mix 75/25) 15 units SC [facility] Metoprolol Tartrate (Lopressor) 50 mg PO BID [facility] Last Admin: 09/15/17 09:55 Dose: 50 mg Oxybutynin Chloride (Ditropan Tab) 5 mg PO Q8 [facility] Last Admin: 09/15/17 05:30 Dose: 5 mg Pantoprazole Sodium (Protonix Ec Tab) 40 mg PO 0600 [facility] Last Admin: 09/15/17 05:30 Dose: 40 mg Pregabalin (Lyrica) 75 mg PO DAILY [facility] Last Admin: 09/15/17 09:55 Dose: 75 mg Tamsulosin HCl (Flomax) 0.4 mg PO DAILY [facility] Last Admin: 09/15/17 09:55 Dose: 0.4 mg Tramadol HCl (Ultram) 50 mg PO BID PRN PRN Reason: Pain, moderate (4-7) Last Admin: 09/12/17 21:56 Dose: 50 mg - Labs Labs: 09/15/17 07:10 09/15/17 07:10 PT 13.9 SECONDS (9.4-12.5) H 09/14/17 06:00 INR 1.20 (0.93-1.08) H 09/14/17 06:00 APTT 40.0 Seconds (25.1-36.5) H 09/10/17 19:30 - Constitutional Appears: No Acute Distress - Head Exam Head Exam: NORMAL INSPECTION - Neurological Exam Neurological Exam: Alert, Awake, Oriented x3 Neuro motor strength exam: Left Upper Extremity: 4, Right Upper Extremity: 5, Left Lower Extremity: 3, Right Lower Extremity: 5 Additional comments: neurological unchanged from previous examination. Assessment and Plan (1) Subdural hemorrhage Assessment & Plan: Case discussed with Dr. Archer, continue all current medical, physical, and occupational therapies. Recommend to defer neurological treatment to neurosurgery. Status: Acute
--- NOTE | 2017-09-15 14:40 | CP.PCM.PN ---
Subjective - Date & Time of Evaluation Date of Evaluation: 09/15/17 Time of Evaluation: 14:37 - Subjective Subjective: POD 2 less Lue numbness today otherise no issues CT showed dec SDH - some araes are scarred and loculated - won't resolve SD drain dc ed wound c and d Rec trans to floor PT OT SS eval will follow intermittently Objective - Vital Signs/Intake and Output Vital Signs (last 24 hours): Temp Pulse Resp BP Pulse Ox 98 F 91 H 17 103/65 97 09/15/17 04:00 09/15/17 11:20 09/15/17 11:20 09/15/17 11:02 09/15/17 11:20 Intake and Output: 09/15/17 09/15/17 06:59 18:59 Intake Total 50 Output Total 800 Balance -750 - Medications Medications: Current Medications Acetaminophen (Tylenol 325mg Tab) 650 mg PO Q4H PRN PRN Reason: Pain, Mild (1-3) Codeine Sulfate (Codeine) 30 mg PO Q4 [facility] Last Admin: 09/15/17 09:56 Dose: 30 mg Digoxin (Digoxin) 0.125 mg PO 1400 [facility] Last Admin: 09/14/17 13:16 Dose: 0.125 mg Furosemide (Lasix) 40 mg PO DAILY [facility] Last Admin: 09/15/17 09:55 Dose: 40 mg Insulin Human Regular (Humulin R Low) 0 units SC [facility] PRN Reason: Protocol Last Admin: 09/15/17 11:53 Dose: 3 units Insulin Lispro Protam/Lispro Human (Humalog Mix 75/25) 15 units SC [facility] Metoprolol Tartrate (Lopressor) 50 mg PO BID [facility] Last Admin: 09/15/17 09:55 Dose: 50 mg Oxybutynin Chloride (Ditropan Tab) 5 mg PO Q8 [facility] Last Admin: 09/15/17 05:30 Dose: 5 mg Pantoprazole Sodium (Protonix Ec Tab) 40 mg PO 0600 [facility] Last Admin: 09/15/17 05:30 Dose: 40 mg Pregabalin (Lyrica) 75 mg PO DAILY [facility] Last Admin: 09/15/17 09:55 Dose: 75 mg Tamsulosin HCl (Flomax) 0.4 mg PO DAILY [facility] Last Admin: 09/15/17 09:55 Dose: 0.4 mg Tramadol HCl (Ultram) 50 mg PO BID PRN PRN Reason: Pain, moderate (4-7) Last Admin: 09/12/17 21:56 Dose: 50 mg - Labs Labs: 09/15/17 07:10 09/15/17 07:10 PT 13.9 SECONDS (9.4-12.5) H 09/14/17 06:00 INR 1.20 (0.93-1.08) H 09/14/17 06:00 APTT 40.0 Seconds (25.1-36.5) H 09/10/17 19:30
[2017-09-15] MEDS: Digoxin 125 mcg (0.125 mg) Tab PO SCH (14:41)
[2017-09-15 14:56] VITALS: PULSE 83
--- NOTE | 2017-09-15 18:31 | PN ---
DATE: 09/15/2017 SUBJECTIVE: The patient has no complaints of any chest pain, no shortness of breath, no headaches or dizziness. He feels well. PHYSICAL EXAMINATION: VITAL SIGNS: Temperature is 98, pulse is 91, blood pressure is 103/65, respiration is 17. GENERAL: The patient is lying in bed, flat, comfortable. HEENT: No oral lesion. Anicteric sclerae. Moist mucosa. NECK: No JVD, adenopathy, or thyromegaly. CARDIOVASCULAR: S1 and S2, regular. No murmurs, rubs, or gallops. LUNGS: Clear to auscultation bilaterally. No wheeze, rales, or rhonchi. ABDOMEN: Bowel sounds are positive, soft, nontender and nondistended. EXTREMITIES: No cyanosis, clubbing or edema. LABORATORY DATA: White count of 9.6, hemoglobin 12, creatinine is 1.8. CT of the head done shows that he is status post right frontal craniotomy for evacuation of an [id number] subdural hemorrhage, decreased size of the right frontal and lateral convexities. The shift of 3 mm persists. ASSESSMENT: 1. Right-sided subdural hematoma, status post drainage, postop day #2. 2. Diabetes type 2. 3. Hypertension. 4. Benign prostatic hypertrophy. 5. Atrial fibrillation, Coumadin on hold. 6. Chronic kidney disease, stage III. 7. Thrombocytosis. PLAN: The patient is currently comfortable, is being followed by Neurosurgery. I did review the note. The patient's drain has been discontinued. The patient is on digoxin. He is going to continue with codeine for pain. The patient is going to be on Flomax for his benign prostatic hypertrophy. The patient is on Lasix daily. He is on metoprolol. The patient is on tramadol. He is going to continue with carbohydrate consistent diet. Harvey Echols MD
[2017-09-15 20:42] VITALS: O2SAT 95
[2017-09-16] MEDS: Pantoprazole 40 mg EC Tab PO SCH (05:34)
[2017-09-16 07:50] VITALS: PULSE 94; RESP 20; TEMP 98.2
[2017-09-16 08:19] LABS: INR 1.16 (0.93-1.08); PROTHROMBIN TIME 13.4 SECONDS (9.4-12.5)
--- NOTE | 2017-09-16 08:35 | PN ---
DATE: 09/16/2017 SUBJECTIVE: The patient has no complaints of any chest pain. No shortness of breath. No headaches or dizziness. PHYSICAL EXAMINATION: VITAL SIGNS: Temperature is 97.8, pulse of 83, blood pressure is 91/63, respirations 24. GENERAL: The patient is lying in bed, flat, comfortable. HEENT: No oral lesion. Anicteric sclerae. Moist mucosa. NECK: No JVD, adenopathy, or thyromegaly. CARDIOVASCULAR: S1 and S2, regular. No murmurs, rubs, or gallops. LUNGS: Clear to auscultation bilaterally. No wheeze, rales, or rhonchi. ABDOMEN: Bowel sounds are positive, soft, nontender and nondistended. EXTREMITIES: No cyanosis, clubbing or edema. LABORATORY DATA: White count of 9.6, hemoglobin is 12. Creatinine is 1.8. ASSESSMENT: 1. Right-sided subdural hematoma, status post drainage, postoperative day #3. 2. Diabetes type 2. 3. Hypertension. 4. Benign prostatic hypertrophy. 5. Atrial fibrillation, Coumadin on hold. 6. Chronic kidney disease stage 3. 7. Thrombocytosis. PLAN: The patient is currently comfortable. His fingersticks have been elevated. He is on codeine for pain. He is going to be on digoxin. This will be continued. He is on Flomax. The patient is on insulin 50 units. He is going to continue with his tramadol. The patient is on Lyrica. He is going to be continued the rehabilitation. Harvey Echols MD
[2017-09-16] MEDS: Insulin Lispro (humaLOG) MIX 75/25(10 ml) SC SCH ×2 (08:58→12:48)
[2017-09-16] MEDS: Insulin Reg-LOW-Coverage SC SCH ×2 (09:00→12:47)
[2017-09-16 09:11] VITALS: BP 124/68
[2017-09-16 11:14] LABS: BCR-ABL SOURCE NOT GIVEN; P190 BCR-ABL1 NOT DETECTED; P210 BCR-ABL1 NOT DETECTED
--- NOTE | 2017-09-16 13:07 | CP.PCM.PN ---
Subjective - Date & Time of Evaluation Date of Evaluation: 09/16/17 Time of Evaluation: 13:07 - Subjective Subjective: Mr. Chi was seen and examined at the bedside. He is alert, oriented with episode of forgetfulness. He is able to answer all questions. He denies any headache, dizziness, lightheadedness, blurred vision, nausea, or vomiting. He is able to feed himself with no assistance. He has minimal left sided weakness. He has the right parietal area dressing intact and dry. He is aware of going to an acute rehab today. There was no untoward events overnight. Objective - Vital Signs/Intake and Output Vital Signs (last 24 hours): Temp Pulse Resp BP Pulse Ox 98.2 F 94 H 20 124/68 95 09/16/17 07:49 09/16/17 07:49 09/16/17 07:49 09/16/17 09:05 09/16/17 12:05 - Medications Medications: Current Medications Acetaminophen (Tylenol 325mg Tab) 650 mg PO Q4H PRN PRN Reason: Pain, Mild (1-3) Last Admin: 09/15/17 16:31 Dose: 650 mg Codeine Sulfate (Codeine) 30 mg PO Q4 [facility] Last Admin: 09/16/17 12:48 Dose: Not Given Digoxin (Digoxin) 0.125 mg PO 1400 [facility] Last Admin: 09/15/17 14:41 Dose: 0.125 mg Furosemide (Lasix) 40 mg PO DAILY [facility] Last Admin: 09/16/17 09:01 Dose: 40 mg Insulin Human Regular (Humulin R Low) [address] [facility] PRN Reason: Protocol Last Admin: 09/16/17 12:47 Dose: 2 units Insulin Lispro Protam/Lispro Human (Humalog Mix 75/25) [address] [facility] Last Admin: 09/16/17 12:48 Dose: 20 units Metoprolol Tartrate (Lopressor) 50 mg PO BID [facility] Last Admin: 09/16/17 09:05 Dose: 50 mg Oxybutynin Chloride (Ditropan Tab) 5 mg PO Q8 [facility] Last Admin: 09/16/17 05:34 Dose: 5 mg Pantoprazole Sodium (Protonix Ec Tab) 40 mg PO 0600 [facility] Last Admin: 09/16/17 05:34 Dose: 40 mg Pregabalin (Lyrica) 75 mg PO DAILY [facility] Last Admin: 09/16/17 09:01 Dose: 75 mg Tamsulosin HCl (Flomax) 0.4 mg PO DAILY [facility] Last Admin: 09/16/17 09:02 Dose: 0.4 mg Tramadol HCl (Ultram) 50 mg PO BID PRN PRN Reason: Pain, moderate (4-7) Last Admin: 09/16/17 05:57 Dose: 50 mg - Labs Labs: 09/15/17 07:10 09/15/17 07:10 PT 13.4 SECONDS (9.4-12.5) H 09/16/17 07:45 INR 1.16 (0.93-1.08) H 09/16/17 07:45 APTT 40.0 Seconds (25.1-36.5) H 09/10/17 19:30 - Constitutional Appears: No Acute Distress - Head Exam Head Exam: NORMAL INSPECTION - Neurological Exam Neurological Exam: Alert, Awake, Oriented x3 Neuro motor strength exam: Left Upper Extremity: 4, Right Upper Extremity: 5, Left Lower Extremity: 3, Right Lower Extremity: 5 Additional comments: Neurological unchanged from previous examination. Assessment and Plan (1) Subdural hemorrhage Assessment & Plan: Case discussed with Dr. Archer, continue all current medical, physical, and occupational therapies. Recommend acute rehab for discharge planning and blood pressure control. Status: Acute
[2017-09-17 17:45] LABS: JAK2 V617F NOT DETECTED
== END 2017-09-16 13:42 | DRG 25 ==
LOC: ED 18:39 → ERH 20:51 → CCU 23:25 → 5RSO 09-16 05:21
PROVIDERS: ADMIT Internal Medicine Nephrology; ATTEND Internal Medicine Nephrology
PROC: 30233K1 Transfusion of Nonautologous Frozen Plasma into Peripheral Vein, Percutaneous Approach (ICD-10-PCS; 2017-09-10)
PROC: 30233R1 Transfusion of Nonautologous Platelets into Peripheral Vein, Percutaneous Approach (ICD-10-PCS; 2017-09-13)
PROC: 009400Z Drainage of Intracranial Subdural Space with Drainage Device, Open Approach (ICD-10-PCS; principal; 2017-09-13 09:30)
DX: I62.01 Nontraumatic acute subdural hemorrhage (principal); I62.03 Nontraumatic chronic subdural hemorrhage; G93.6 Cerebral edema; E11.22 Type 2 diabetes mellitus with diabetic chronic kidney disease; D68.59 Other primary thrombophilia; I13.0 Hypertensive heart and chronic kidney disease with heart failure and stage 1 through stage 4 chronic kidney disease, or unspecified chronic kidney disease; I48.2 Chronic atrial fibrillation; I50.9 Heart failure, unspecified; N18.3 Chronic kidney disease, stage 3 (moderate); E11.36 Type 2 diabetes mellitus with diabetic cataract; J44.9 Chronic obstructive pulmonary disease, unspecified; R40.2413 Glasgow coma scale score 13-15, at hospital admission; N40.0 Benign prostatic hyperplasia without lower urinary tract symptoms; I25.10 Atherosclerotic heart disease of native coronary artery without angina pectoris; D64.9 Anemia, unspecified; K21.9 Gastro-esophageal reflux disease without esophagitis; R29.6 Repeated falls; Z96.652 Presence of left artificial knee joint; F03.90 Unspecified dementia, unspecified severity, without behavioral disturbance, psychotic disturbance, mood disturbance, and anxiety; H40.9 Unspecified glaucoma; T45.515A Adverse effect of anticoagulants, initial encounter; Z79.01 Long term (current) use of anticoagulants; M19.90 Unspecified osteoarthritis, unspecified site; Z79.4 Long term (current) use of insulin; Z91.81 History of falling; Z87.891 Personal history of nicotine dependence